=== PATIENT | female | born 1975 | race Hispanic/Latino ===

== ENCOUNTER 2017-03-10 12:35 | Inpatient (IN) | payer OTHER ==
[~2017-03-10] VITALS: Ht 172.7 cm; Wt 91.0 kg
[~2017-03-10 12:35] MED LIST: ABILIFY5 MG OR; AMOXICILLIN500 MG OR; AUGMENTIN875 MG OR; AUGMENTIN875TAB PO; AVAPRO75 MG OR; BACTRIM DS1 TAB PO; BUTRANS10 MCG/HR TD; CELEXA20 M1 OR; CHLOROQUINE; CIPRO500 MG OR; CIPROFLOXACN500 MG PO; CLARITIN10 MG OR; DARVOCET-N 100100 MG OR; FLEXERIL OR; FLEXERIL PO; GENERLAC OR; GLUCOMETER; GLUCOTROL5 MG OR; GLUCOVANCE5 MG/500 M OR; HYDROCHLOROT25 MG OR; IBUPROFEN600 MG PO; KEFLEX500 M1 PO; LANTUS SOLOSTAR SC; LANTUS100 MG/ML SC; LORTAB 10-325 M1 TAB PO; LORTAB 1010 MG PO; LORTAB 5 OR; LORTAB 7.5 OR; LOSARTAN POT50 MG PO; LYRICA150 M1 PO; LYRICA150 MG OR; LYRICA75 MG OR; METFORMIN500 M1 OR; METFORMIN500 MG OR; MUPIROCIN2 % EX; Metformin OR; NAPROSYN500 MG OR; NAPROSYN500 MG PO; NEURONTIN; NEURONTIN300 MG OR; NORVASC5 MG OR; NOVOLOG FLEXPEN SC; NOVOLOG100 IU/1 M SC; PERCOCET 5/325M1 TAB OR; PHENERGAN25 MG/TAB PO; PRILOSEC20 MG OR; PRILOSEC40 MG OR; PRINIVIL10 MG OR; PRINIVIL5 MG OR; PYRIDIUM200 MG OR; REGLAN10 MG OR; SEA-OMEGA500 MG OR; ULTRAM50 M1 PO; ULTRAM50 MG OR; ZESTRIL OR; [UNRECOGNIZED DRUG - SUPPLY]
[2017-03-10] MEDS ORDERED: LAMICTAL ODT100 MG PO (13:01)
[2017-03-10] MEDS ORDERED: GENTAMICIN SULF0.1 % EX (13:03)
--- NOTE | 2017-03-10 13:10 | NUR ---
PT TRIAGED, TO ROOM 10 VIA WC
--- NOTE | 2017-03-10 13:48 | NUR ---
PT RESTING ON STRETCHER. ULCER TO BOTTOM OF LEFT FOOT. DISCUSSED DIABETES W/PT. PT VOICED UNDERSTANDING AND VOICED UNDERSTANDING OF IMPORTANCE IN FOLLOWING A HEALTHY DIABETIC DIET WELL DAILY INSPECTIONS OF FEET. CALL LIGHT WITHINREACH.
--- NOTE | 2017-03-10 14:30 | NUR ---
EVALUATED PT. AWAITING FAX FROM [facility] TO REVIEW RECORDS.
--- NOTE | 2017-03-10 15:26 | NUR ---
IV ABT INFUSING TO RAC. MEDICATED FOR RT FOOT PAIN. [facility]
[2017-03-10 15:39] LABS: HEMATOCRIT 38.4 % (37.0-47.0); IMMATURE GRANULOCYTES 0.5 % (0.0-1.0); MEAN CELL VOLUME 84.8 fL CALC (80.0-100.0); MEAN CORPUSCULAR HGB 28.7 pG CALC (26.0-32.0); MEAN CORPUSCULAR HGB CONC 33.9 g/L CALC (32.0-36.0); NEUT# 8.59 thou/uL (2.00-7.15); RED BLOOD COUNT 4.53 mill/uL (4.20-5.60); RED CELL DISTRI WIDTH 12.6 % (11.5-15.5)
--- NOTE | 2017-03-10 16:49 | NUR ---
IV ABT CONTINUES. SITE HEALTHY. PT MEDICATED FOR C/O PAIN TO LEFT FOOT VIA IV W/MORPHINE. ADVISED OF PENDING POC ADMISSION. PT VOICED UNDERSTANDING. CALL LIGHTWITHINR EACH. AFEBRILE
--- NOTE | 2017-03-10 16:55 | NUR ---
ATTEMPT TO CALL REPORT TO [facility], NURSE UNAVAILABLE FOR REPORT
[2017-03-10 17:13] LABS: ALBUMIN 3.4 g/dL (3.2-5.0); ALKALINE PHOSPHATASE 139 u/l (38-126); ANION GAP 13 (6-22 (CALC)); BILIRUBIN, TOTAL 0.2 mg/dL (0.0-1.4); BUN 13 mg/dL (7-17); BUN/CREATININE RATIO 29 (12-20 (CALC)); CALCIUM 9.1 mg/dL (8.4-10.2); CARBON DIOXIDE 24 mmol/l (22-30); CHLORIDE 109 mmol/l (95-108); CREATININE 0.4 mg/dL (0.5-1.0); GFR > 60 ML/MIN (>=60 (CALC)); GFR FOR AFR.AMER. > 60 ML/MIN (>=60 (CALC)); GLUCOSE 162 mg/dL (65-105); POTASSIUM 3.7 mmol/l (3.5-5.1); SGOT/AST 24 u/l (14-36); SGPT/ALT 47 u/l (9-52); SODIUM 141 mmol/l (137-146); TOTAL PROTEIN 6.7 g/dL (6.3-8.2)
--- NOTE | 2017-03-10 17:16 | NUR ---
ATTEMPT TO CALL REPORT TO [facility], NURSE UNAVAILABLE FOR REPORT AT THIS TIME.
--- NOTE | 2017-03-10 17:23 | NUR ---
REPORT PROVIDED TO SURENDRA HALL, ON MEDSURG. PT TO MEDSURG VIA STRETCHER. IV ABT INFUSING SITE HEALTHY. VSS. AFEBRILE. NO C/O PAIN AT THIS TIME.
--- NOTE | 2017-03-10 17:37 | NUR ---
PT ARRIVED TO FLOOR VIA STRETCHER ACCOMPANIED BY ED STAFF X 1. PT ORIENTED TO ROOM AND EQUIPMENT. PLAN OF CARE DISCUSSED. REPORTING OF CONCERNS ENCOURAGED. PT REPORTS MODERATE PAIN TO LEFT FOOT WITH MOVEMENT. CALL LIGHT REVIEWED AND IN REACH. FALL PRECAUTIONS REIFORCED. PT STATES UNDERSTANDING.
[2017-03-10 17:48] VITALS: BP 139/80
[2017-03-10 19:05] VITALS: BP 117/77
--- NOTE | 2017-03-10 20:10 | NUR ---
REPORT RECEIVED FROM AMBER; PT.IS UPRIGHT IN BED WATCHING TV AND DENIES ANY NEEDS AT THIS TIME; CALL LIGHT W/IN REACH, PT.INSTRUCTED TO CALL NEEDS ARISE
--- NOTE | 2017-03-10 23:20 | NUR ---
STARTED HEARING SCREAMING DOWN THE CORTÉS FROM ANOTHER PT.ROOM; ONE OF THE SOLAR LAB TECHNICIAN'S AND I ENTERED PT.ROOM TO CHECK ON HER, UPON ENTERING ROOM, PT.WAS ON CELLPHONE, SCREAMING AND YELLING; PT. HUNG UP THE PHONE AND PROCEEDED TO START CLIMBING OUT OF BED STATING SHE "HAS TO GO, MY IS CHEATING ON ME." PT.WAS QUITE DISTRAUGHT; WE MANAGED TO TALK TO HER AND CALM HER SOMEWHAT, MAXIMINO KIMBLEA STAYED W/PT FOR AWHILE AND TALKED TO HER UNTIL SHE WAS CALM, WANTING TO STAY AND TAKE CARE OF HERSELF;
--- NOTE | 2017-03-11 00:10 | NUR ---
PT.IS IN BED PROPPED UP W/TV QUIETLY PLAYING, PT.APPEARS TO BE CALM, BUT STILL UPSET; PT.MEDICATED AND OFFERED ASSISTANCE NEEDE; CALL LIGHT W/IN REACH AND PT.ENCOURAGED TO CALL NEEDS ARISE
[2017-03-11 03:15] VITALS: BP 127/80
[2017-03-11 06:39] LABS: HEMATOCRIT 33.9 % (37.0-47.0); HEMOGLOBIN 11.4 g/dl (12.0-16.0); IMMATURE GRANULOCYTES 0.5 % (0.0-1.0); MEAN CELL VOLUME 84.8 fL CALC (80.0-100.0); MEAN CORPUSCULAR HGB 28.5 pG CALC (26.0-32.0); MEAN CORPUSCULAR HGB CONC 33.6 g/L CALC (32.0-36.0); NEUT# 5.91 thou/uL (2.00-7.15); RED CELL DISTRI WIDTH 12.3 % (11.5-15.5)
[2017-03-11 06:54] LABS: ANION GAP 12 (6-22 (CALC)); BUN 10 mg/dL (7-17); BUN/CREATININE RATIO 25 (12-20 (CALC)); CALCULATED LDLCHOLESTEROL 63 mg/dL (62-129 (CALC)); CARBON DIOXIDE 25 mmol/l (22-30); CHLORIDE 109 mmol/l (95-108); CREATININE 0.4 mg/dL (0.5-1.0); GFR > 60 ML/MIN (>=60 (CALC)); GFR FOR AFR.AMER. > 60 ML/MIN (>=60 (CALC)); GLUCOSE 65 mg/dL (65-105); HDL CHOLESTEROL 31 mg/dL (>=40); POTASSIUM 3.8 mmol/l (3.5-5.1); SODIUM 142 mmol/l (137-146); TOTAL CHOLESTEROL 114 mg/dl (0-199); TOTAL TRIGLYCERIDES 94 mg/dl (30-149); VLDL CHOLESTROL 19 mg/dl (1-41 (CALC))
--- NOTE | 2017-03-11 07:12 | NUR ---
BEDSIDE REPORT RECEIVED FROM SURENDRA TODD. PT SITTING UPRIGHT IN BED. DR. CHU IN TO SEE PT AT THIS TIME.
[2017-03-11 08:02] VITALS: BP 113/75
--- NOTE | 2017-03-11 11:54 | NUR ---
PT SITTING IN CHAIR AT BEDSIDE. NO COMPLAINTS AT THIS TIME. ANESTHESIA IN TO SEE PT NOW.
[2017-03-11 15:53] VITALS: BP 128/80
[2017-03-11 18:58] VITALS: BP 140/87
--- NOTE | 2017-03-11 19:43 | NUR ---
BEDSIDE REPORT RECEIVED FROM SURENDRA HALL. PT SITTING UP IN BED WATCHING TV. C/O PAIN TO LEFT FOOT. RESPIRATIONS EVEN AND UNLABORED. PLAN OF CARE DISCUSSED. PT ENCOURAGED TO VERBALIZE CONCERNS. STATES UNDERSTANDING. ASSESSMENT COMPLETE AND DILAUDID ADMINISTERED. SAFETY PRECAUTIONS IN PLACE. CALL LIGHT SYSTEM REVIEWED AND IN REACH.
[2017-03-12] VITALS (9 sets, daily range): BP systolic 113–157; BP diastolic 58–87
--- NOTE | 2017-03-12 | NUR ---
PT IS RESTING IN BED WATCHING TV. C/O PAIN TO LEFT FOOT AND ANAGESICS GIVEN INTERMITTENTLY. RESPIRATIONS EVEN AND UNLABORED. PREVIOUSLY THIS SHIFT PT FOUND CRYING. NURSE ENCOURAGED PT TO VERBALIZE HER CONCERNS, AND PT STATES, "I AM OK, JUST DEPRESSED." PT VERBALIZED TO FORMULA ROOM WORKER THAT SHE IS HAVING FAMILY PROBLEMS AT HOME. WILL CONTINUE TO MONITOR BEHAVIORS. SAFETY MEASURES IN PLACE. CALL LIGHT WITHIN REACH.
[2017-03-12 02:01] LABS: URINE BILIRUBIN - DIPSTICK NEGATIVE (NEGATIVE); URINE BLOOD DIPSTICK NEGATIVE (NEGATIVE); URINE CLARITY CLEAR; URINE COLOR YELLOW; URINE GLUCOSE - DIPSTICK >=1000 mg/dL (NEGATIVE); URINE KETONE NEGATIVE (NEGATIVE); URINE LEUK ESTERASE NEGATIVE (Negative); URINE NITRITE - DIPSTICK NEGATIVE (Negative); URINE PROTEIN - DIPSTICK NEGATIVE (NEG-TRACE); URINE SPECIFIC GRAVITY 1.015; URINE UROBILINOGEN - DIPSTICK 0.2 E.U./dL (0.2)
--- NOTE | 2017-03-12 04:10 | NUR ---
PT RESTING IN BED WITH EYES CLOSED. RECEIVED ANALGESIC WITH GOOD EFFECT. RESPIRATIONS EVEN AND UNLABORED. UP TO BATHROOM NEEDED, USING A CRUTCH WHEN AMBULATING. SAFETY MEASURES IN PLACE. CALL LIGHT WITHIN REACH.
[2017-03-12 05:31] LABS: HEMATOCRIT 35.5 % (37.0-47.0); HEMOGLOBIN 11.9 g/dl (12.0-16.0); IMMATURE GRANULOCYTES 0.4 % (0.0-1.0); MEAN CELL VOLUME 84.9 fL CALC (80.0-100.0); MEAN CORPUSCULAR HGB 28.5 pG CALC (26.0-32.0); MEAN CORPUSCULAR HGB CONC 33.5 g/L CALC (32.0-36.0); NEUT# 4.45 thou/uL (2.00-7.15); RED BLOOD COUNT 4.18 mill/uL (4.20-5.60); RED CELL DISTRI WIDTH 12.3 % (11.5-15.5)
[2017-03-12 05:43] LABS: ANION GAP 13 (6-22 (CALC)); BUN 7 mg/dL (7-17); BUN/CREATININE RATIO 17 (12-20 (CALC)); CALCIUM 8.9 mg/dL (8.4-10.2); CARBON DIOXIDE 27 mmol/l (22-30); CHLORIDE 105 mmol/l (95-108); CREATININE 0.4 mg/dL (0.5-1.0); GFR > 60 ML/MIN (>=60 (CALC)); GFR FOR AFR.AMER. > 60 ML/MIN (>=60 (CALC)); GLUCOSE 197 mg/dL (65-105); POTASSIUM 3.8 mmol/l (3.5-5.1); SODIUM 141 mmol/l (137-146)
[2017-03-12 05:48] LABS: INTERNATIONAL NORMALIZED RATIO 0.9 RATIO (0.7-1.3); PROTHROMBIN TIME 9.7 SECONDS (9.0-12.5)
--- NOTE | 2017-03-12 07:31 | NUR ---
REPORT RECEIVED FROM VANGIE MALDONADO. PLAN OF CARE DISCUSSED. PT REPORTS NPO SINCE [place]. REPORTS MILD LEFT FOOT PAIN. PT LEFT FLOOR VIA STRETCHER ACCOMPANEID BY RECREATION FACILITIES SUPERVISOR. PT STABLE AT THIS TIME.
--- NOTE | 2017-03-12 09:25 | NUR ---
PT RETURNED TO FLOOR VIA STRETCHER ACCOMPANIED BY OR STAFF X2. PT DENIES PAIN. DRESSING TO LEFT FOOT CDI. FOOT ELEVATED ON 3 PILLOWS PER ORDERS. NWB STATUS REVIEWED WITH PT. CALL LIGHT REVIEWED AND IN REACH. PT STATES UNDERSATNDING.
--- NOTE | 2017-03-12 12:24 | NUR ---
PT ASSISTED TO BSC. NWB STATUS MAINTAINED. PT TOLERATED ACITIVTY WELL.
--- NOTE | 2017-03-12 14:55 | NUR ---
PT REPORTS MILD PAIN TO LEFT FOOT AT THIS TIME. CALL LIGHT WITHIN REACH. REPORTING OF FURTHER CONCERNS ENCOURAGED. VANCO INFUSING THROUGH #20 RAC, NO S/S OF INFILTRATION. WILL CONTINUE TO MONITOR.
--- NOTE | 2017-03-12 18:24 | NUR ---
IVS RAC LEAKING. SITE REMOVED. ATTEMPTS X 2 FOR NEW IVS, UNSUCCESSFUL. WILL SEEK OTHER STAFF FOR NEW IVS.
--- NOTE | 2017-03-12 20:00 | NUR ---
REPORT RECEIVED FROM AMBER PT.UPRIGHT IN BED WATCHING TV; DENIES ANY NEEDS AT THIS TIME; CALL LIGHT W/IN REACH
--- NOTE | 2017-03-12 23:30 | NUR ---
PT.UP TO RESTROOM, PT.HOPS TO RESTROOM AND DOES NOT WANT ASSISTANCE; PT.HAVING PAIN AND TREATED W/MEDICATION ORDERS PROVIDE; PT.FOOT ELEVATED W/3 PILLOWS AND PENNY WRAP CDI; SCD ON R.LEG
[2017-03-13 03:53] VITALS: BP 124/54
--- NOTE | 2017-03-13 06:25 | NUR ---
PT.WAS MEDICATED W/MORPHINE AND NOW UPON REASSESSMENT REPORTS THAT PAIN IS STILL A 9/10; REPOSITIONED L.FOOT ON 3 PILLOWS
--- NOTE | 2017-03-13 07:30 | NUR ---
PT IN SEMI BATEMAN'S POSITION; LEFT FOOT DRSG CDI, FOOT ELEVATED ON 3 PILLOWS; PT MEDICATED FOR C/O LEFT FOOT PAIN 06/29; CALL BENOIT WITHIN REACH; WILL CONTINUE TO MONITOR.
--- NOTE | 2017-03-13 07:44 | NUR ---
Vancomycin single level analysis: Current dose being given: 1000 mg Current dosing interval: 8 hrs Current infusion time (hrs): 2 Single level Trough Data: Trough level obtained: 7 mcg/ml NEXT TROUGH WILL BE 03/14/2017 BEFORE 1500 DOSE Recommendations: Give Vancomycin 1250 mg q 8 hrs. Infuse over 2 hrs Thank you for the consult, will continue to follow. LYNETTE BOB -SUNSHINED
[2017-03-13 08:04] VITALS: BP 140/86
--- NOTE | 2017-03-13 10:00 | NUR ---
PT MEDICATED FOR C/O LEFT FOOT PAIN 07/30; FOOT ELEVATED ON 3 PILLOWS; CALL BENOIT WITHIN REACH; WILL CONTINUE TO MONITOR.
--- NOTE | 2017-03-13 12:00 | NUR ---
PT MEDICATED FOR C/O NECK PAIN 06/29; CALL BENOIT WITHIN REACH; WILL CONTINUE TO MONITOR.
[2017-03-13 15:48] VITALS: BP 146/82
--- NOTE | 2017-03-13 17:32 | NUR ---
PT MEDICATED FOR C/O LEFT LEG PAIN 07/30; CALL BENOIT WITHIN REACH; WILL CONTINUE TO MONITOR.
[2017-03-13 19:25] VITALS: BP 149/85
--- NOTE | 2017-03-13 20:30 | NUR ---
PT RESTING IN SEMI FOWLERS POSITION WITH SPOUSE AT BEDSIDE;PT COMPLAINS OF LEFT FOOT/ANKLE PAIN RATING 9/10 ON THE PAIN SCALE AND REQUESTS PRN PAIN MEDICATION;PT MEDICATED ACCORDINGLY PER MD ORDERS;IV SITE TO RAC FLUSHED AND PATENT;PT BS OF 319 OBTAINED BY GORDON ESTRADA;ASSESSMENT COMPLETED;LEFT FOOT/ANKLE ELEVATED ON 3 PILLOWS;DRESSING CDI;PT EDUCATED ON NPO STATUS AFTER MIDNIGHT AND VERBALIZES UNDERSTANDING;PT DENIES ANY OTHER NEEDS AT THIS TIME;SAFETY PRECAUTIONS REINFORCED;BED IN LOWEST POSITION WITH CALL LIGHT IN REACH;WILL CONTINUE TO MONITOR
--- NOTE | 2017-03-13 23:30 | NUR ---
PT RESTING IN SEMI FOWLERS POSITION;PT COMPLAINS OF LEFT FOOT/ANKLE PAIN RATING 9/10 ON THE PAIN SCALE AND REQUESTS PRN PAINMEDICATION;PT MEDICATED ACCORDINGLY PER MD ORDERS;PT DENIES ANY OTHER NEEDS AT THIS TIME;PT EDUCATED TO CALL FOR ASSISTANCE IF NEEDED;BED IN LOWEST POSITION WITH CALL LIGHT IN REACH;WILL CONTINUE TO MONITOR
[2017-03-14 03:40] VITALS: BP 123/74
--- NOTE | 2017-03-14 05:30 | NUR ---
PT RESTING IN SEMI FOWLERS POSITION;PT COMPLAINS OF LEFT FOOT/ANKLE PAIN RATING 9/10 ON THE PAIN SCALE AND REQUESTS PRN PAIN MEDICATION;PT MEDICATED ACCORDINGLY PER MD ORDERS;IV FLUIDS INFUSING WELL AT THIS TIME;PT DENIES ANY OTHER NEEDS;BED IN LOWEST POSITION WITH CALL LIGHT IN REACH;WILL CONTINUE TO MONITOR
[2017-03-14 06:15] LABS: HEMATOCRIT 34.9 % (37.0-47.0); HEMOGLOBIN 11.6 g/dl (12.0-16.0); IMMATURE GRANULOCYTES 1.1 % (0.0-1.0); MEAN CELL VOLUME 85.1 fL CALC (80.0-100.0); MEAN CORPUSCULAR HGB 28.3 pG CALC (26.0-32.0); MEAN CORPUSCULAR HGB CONC 33.2 g/L CALC (32.0-36.0); NEUT# 3.88 thou/uL (2.00-7.15); RED BLOOD COUNT 4.1 mill/uL (4.20-5.60)
[2017-03-14 06:34] LABS: ANION GAP 13 (6-22 (CALC)); BUN 7 mg/dL (7-17); BUN/CREATININE RATIO 16 (12-20 (CALC)); CALCIUM 9.3 mg/dL (8.4-10.2); CARBON DIOXIDE 26 mmol/l (22-30); CHLORIDE 105 mmol/l (95-108); CREATININE 0.5 mg/dL (0.5-1.0); GFR > 60 ML/MIN (>=60 (CALC)); GFR FOR AFR.AMER. > 60 ML/MIN (>=60 (CALC)); GLUCOSE 258 mg/dL (65-105); POTASSIUM 4.6 mmol/l (3.5-5.1); SODIUM 139 mmol/l (137-146)
--- NOTE | 2017-03-14 08:14 | NUR ---
REPORT RECEIVED FROM AMBER; PT.SLEEPING AT THIS TIME; BST AND CALL LIGHT W/IN REACH
--- NOTE | 2017-03-14 09:55 | NUR ---
OR CAME TO GET PT.FOR FOR POSSIBLE I&D OF LEFT FOOT, PT.OFF THE FLOOR
--- NOTE | 2017-03-14 15:45 | NUR ---
PT.BACK TO FLOOR, AWAKE, NO C/O PAIN AT THIS TIME; PT.IS THIRSTY AND HUNGRY, I INSTRUCTED PT.TO START W/ICE-CHIPS AND WE WILL PROGRESS FROM THERE TOLERATED; COMMUNITY SERVICE OFFICER REPORTED A FEW MINUTES LATER THAT PT.WAS EATING CRACKERS FROM HOME AND WANTED MILK TO GO W/THEM, PT. REPORTS NO NAUSEA AND APPEARS TO BE TOLERATING CRACKERS WELL.
[2017-03-14 17:00] VITALS: BP 154/82
--- NOTE | 2017-03-14 20:15 | NUR ---
PT IN BED WITH LEFT LEG ELEVATED ON TWO PILLOWS, PENNY BANDAGE IN PLACE TO LOWER LEG CDI. VANCOMYCIN STARTED AT 2009, DUE TO DIFFICULTY DRAWING VANCO TROUGH, INFUSING WITH NO COMPLICATIONS. WILL CALL PHARMACY. A/O X3, TEARY DUE TO IN THE FAMILY. WILL CONTINUE TO MONITOR. CALL LIGHT IN REACH.
[2017-03-14 20:20] VITALS: BP 137/81
[2017-03-15 00:25] VITALS: BP 143/84
--- NOTE | 2017-03-15 02:38 | NUR ---
MEDICATED WITH PERCOCET FOR C/O LEFT FOOT PAIN 08/29.
--- NOTE | 2017-03-15 04:41 | NUR ---
MEDICATED WITH MORPHINE IV FOR C/O LEFT LOWER LEG PAIN. VANCOMYCIN SPIKED AND INFUSING WITH NO COMPLICATIONS.
[2017-03-15 04:45] VITALS: BP 133/80
--- NOTE | 2017-03-15 07:35 | NUR ---
BEDSIDE REPORT RECEIVED FROM VANGIE ROWLEY. PT SITTING UPRIGHT IN BED. REPORTS SEVERE LEFT FOOT PAIN. PERCOCET PO ADMINISTERED. REPORTING OF FURTHER CONCERNS ENCOURAGED. PT TEARFUL. STATES SHE WOULD LIKE TO GO HOME TO PREPARE FOR HER BROTHERS AND RETURN AFTER. PT ENCOURAGED TO DISCUSSED WITH DR. FRENCH. CALL LIGHT WITHIN REACH.
--- NOTE | 2017-03-15 08:47 | NUR ---
Vancomycin dose: 1250 mg IV Q8hrs OVER 2HRS VANCO TROUGH WAS 5 BUT WAS PULLED 4 HRS LATE WE WILL CONTINUE VANCO 1250MG Q8H NEXT TROUGH IS 03/16/17 AT 1145
[2017-03-15 09:00] VITALS: BP 156/90
--- NOTE | 2017-03-15 12:00 | NUR ---
PT REPORTS SEVERE LEFT FOOT PAIN. PERCOCET PO ADMINISTERED. WILL MONITOR FOR EFFECTIVENESS.
[2017-03-15 17:00] VITALS: BP 157/83
--- NOTE | 2017-03-15 17:18 | NUR ---
PT REPORTS SOME RELIEF FROM RECENT PAIN MEDICATION. PLAN OF CARE FOR TOMORROW DISCUSSED AND NPO AFTER MN STATUS. PT STATES UNDERSTANDING.
--- NOTE | 2017-03-15 19:55 | NUR ---
MEDICATED WITH MORPHINE 2MG IV FOR C/O LEFT FOOT PAIN 06/29. A/O X3, RESPIRATIONS EVEN AND UNLABORED. DRESSING IN PLACE TO LEFT FOOT SECURED WITH PENNY BANDAGE, LEFT LEG ELEVATED ON 2 PILLOWS. VANCOMYCIN SPIKED AND INFUSING WITH NO COMPLICATIONS TO LAC. ENCOURAGED TO USE CALL LIGHT FOR ASSISTANCE, WILL CONTINUE TO MONITOR.
[2017-03-15 20:10] VITALS: BP 151/90
--- NOTE | 2017-03-15 21:11 | NUR ---
ACCUCHECK 210 NO INSULIN COVERAGE FOR HS, MEDICATED WITH LEVEMIR 90 UNITS SQ, TOLERATED WELL. PERCOCET PROVIDED AT THIS TIME FOR C/O PAIN 08/29. PT IS TEARY EYED DUE TO RECENT IN THE FAMILY. CALL LIGHT IN REACH, WILL CONTINUE TO MONITOR.
--- NOTE | 2017-03-16 00:10 | NUR ---
PT IS NPO, ALL FLUID AND FOOD REMOVED FROM BED SIDE.
--- NOTE | 2017-03-16 03:30 | NUR ---
C/O PAIN 8/10 TO LEFT FOOT, MEDICATED WITH MORPHINE 2MG IV.
[2017-03-16 03:34] VITALS: BP 141/85
--- NOTE | 2017-03-16 07:00 | NUR ---
BEDSIDE REPORT RECEVIED FROM VANGIE ROWLEY. OR STAFF HERE TO TAKE PT TO OR. PT STATES UNDERSTANDING OF PLAN OF CARE AND PROCEDURE.
--- NOTE | 2017-03-16 09:44 | NUR ---
PT ARRIVED TO FLOOR ACCOMPANIED BY SURENDRA VASQUES. PT REPORTS MODERATE LEFT FOOT PAIN. PENNY WRAP DRESSING TO LEFT FOOT CDI. PT AWAKE AND ALERT. LEFT FOOT ELEVATED ON 3 PILLOWS PER ORDER. SCD TO RIGHT LE. WILL CONTINUE TO MONITOR.
[2017-03-16 09:45] VITALS: BP 146/67
[2017-03-16 10:10] VITALS: BP 137/76
--- NOTE | 2017-03-16 12:00 | NUR ---
PT ARRIVED TO FLOOR WITH ALEJANDRA PICC LINE IN PLACE. FLUSHES WELL. DRESSING CDI.
[2017-03-16] MEDS ORDERED: LEVEMIR100 UNIT/M SC ×2 (12:49)
[2017-03-16] MEDS ORDERED: LORTAB 10-325 M1 TAB PO (12:49)
[2017-03-16] MEDS ORDERED: NOVOLOG100 UNIT/M SC (12:49)
[2017-03-16] MEDS ORDERED: NICOTINE T21 MG/PATC TD (13:12)
--- NOTE | 2017-03-16 14:51 | NUR ---
Discharge instructions given. Patient verbalizes understanding of same. Discharged in stable condition via Wheelchair to Home with family. All belongings sent with pt.
== END 2017-03-16 14:48 | disposition home or self-care (01) | DRG 638 ==
LOC: ENPENDDIS → ED 12:35 → ED-I 16:01 → ED 16:22 → MS2 16:23
PROVIDERS: Emergency Medicine; ADMIT Internal Medicine; ATTEND Internal Medicine
PROC: 0H9NXZX Drainage of Left Foot Skin, External Approach, Diagnostic (ICD-10-PCS; principal; 2017-03-12)
PROC: 0HQNXZZ Repair Left Foot Skin, External Approach (ICD-10-PCS; 2017-03-14)
PROC: 0H9NXZZ Drainage of Left Foot Skin, External Approach (ICD-10-PCS; 2017-03-16)
DX: E11.628 Type 2 diabetes mellitus with other skin complications (principal); M86.9 Osteomyelitis, unspecified; E11.42 Type 2 diabetes mellitus with diabetic polyneuropathy; E11.621 Type 2 diabetes mellitus with foot ulcer; L02.612 Cutaneous abscess of left foot; E11.69 Type 2 diabetes mellitus with other specified complication; E11.65 Type 2 diabetes mellitus with hyperglycemia; L97.529 Non-pressure chronic ulcer of other part of left foot with unspecified severity; B95.7 Other staphylococcus as the cause of diseases classified elsewhere; F31.9 Bipolar disorder, unspecified; I10 Essential (primary) hypertension; S92.515A Nondisplaced fracture of proximal phalanx of left lesser toe(s), initial encounter for closed fracture; F17.210 Nicotine dependence, cigarettes, uncomplicated; Z79.4 Long term (current) use of insulin; X58.XXXA Exposure to other specified factors, initial encounter
CPT/HCPCS: A9579; J1650; J3370

== ENCOUNTER 2017-04-30 09:23 | Emergency (ER) | payer OTHER ==
[~2017-04-30] VITALS: Ht 172.7 cm; Wt 85.0 kg
[~2017-04-30 09:23] MED LIST changes: +GENTAMICIN SULF0.1 % EX; +LAMICTAL ODT100 MG PO; +LEVEMIR100 UNIT/M SC; +NICOTINE T21 MG/PATC TD; +NOVOLOG100 UNIT/M SC
[2017-04-30 10:39] VITALS: BP 142/74
== END 2017-04-30 10:39 | disposition home or self-care (01) | DRG 951 ==
LOC: ED 09:23
DX: Z48.01 Encounter for change or removal of surgical wound dressing (principal); E11.40 Type 2 diabetes mellitus with diabetic neuropathy, unspecified; E11.621 Type 2 diabetes mellitus with foot ulcer; L97.529 Non-pressure chronic ulcer of other part of left foot with unspecified severity; I10 Essential (primary) hypertension; F31.9 Bipolar disorder, unspecified; F17.210 Nicotine dependence, cigarettes, uncomplicated

== ENCOUNTER 2017-06-27 08:54 | Inpatient (IN) | payer OTHER ==
[~2017-06-27] VITALS: Ht 172.7 cm; Wt 81.2 kg
[2017-06-27 09:35] LABS: HEMATOCRIT 39.2 % (37.0-47.0); HEMOGLOBIN 13.4 g/dl (12.0-16.0); IMMATURE GRANULOCYTES 0.8 % (0.0-1.0); MEAN CELL VOLUME 81.8 fL CALC (80.0-100.0); MEAN CORPUSCULAR HGB CONC 34.2 g/L CALC (32.0-36.0); NEUT# 6.8 thou/uL (2.00-7.15); RED BLOOD COUNT 4.79 mill/uL (4.20-5.60); RED CELL DISTRI WIDTH 13.5 % (11.5-15.5)
[2017-06-27 09:58] LABS: ALBUMIN 4.3 g/dL (3.2-5.0); ALKALINE PHOSPHATASE 178 u/l (38-126); ANION GAP 16 (6-22 (CALC)); BILIRUBIN, TOTAL 0.9 mg/dL (0.0-1.4); BUN 9 mg/dL (7-17); BUN/CREATININE RATIO 17 (12-20 (CALC)); CALCIUM 9.4 mg/dL (8.4-10.2); CARBON DIOXIDE 25 mmol/l (22-30); CHLORIDE 103 mmol/l (95-108); CREATININE 0.5 mg/dL (0.5-1.0); GFR > 60 ML/MIN (>=60 (CALC)); GFR FOR AFR.AMER. > 60 ML/MIN (>=60 (CALC)); GLUCOSE 393 mg/dL (65-105); POTASSIUM 4.2 mmol/l (3.5-5.1); SGOT/AST 20 u/l (14-36); SGPT/ALT 30 u/l (9-52); SODIUM 140 mmol/l (137-146); TOTAL PROTEIN 8.4 g/dL (6.3-8.2)
[2017-06-27 11:29] VITALS: BP 148/97
[2017-06-27 15:19] VITALS: BP 125/73
[2017-06-27 19:35] VITALS: BP 119/79
[2017-06-28 04:00] VITALS: BP 119/70
[2017-06-28 05:58] LABS: HEMATOCRIT 35.2 % (37.0-47.0); HEMOGLOBIN 11.7 g/dl (12.0-16.0); IMMATURE GRANULOCYTES 0.8 % (0.0-1.0); MEAN CELL VOLUME 83.6 fL CALC (80.0-100.0); MEAN CORPUSCULAR HGB 27.8 pG CALC (26.0-32.0); MEAN CORPUSCULAR HGB CONC 33.2 g/L CALC (32.0-36.0); NEUT# 5.06 thou/uL (2.00-7.15); RED BLOOD COUNT 4.21 mill/uL (4.20-5.60); RED CELL DISTRI WIDTH 13.6 % (11.5-15.5)
[2017-06-28 06:07] LABS: ANION GAP 12 (6-22 (CALC)); BUN 10 mg/dL (7-17); BUN/CREATININE RATIO 20 (12-20 (CALC)); CALCIUM 8.8 mg/dL (8.4-10.2); CARBON DIOXIDE 27 mmol/l (22-30); CHLORIDE 104 mmol/l (95-108); CREATININE 0.5 mg/dL (0.5-1.0); GFR > 60 ML/MIN (>=60 (CALC)); GFR FOR AFR.AMER. > 60 ML/MIN (>=60 (CALC)); GLUCOSE 286 mg/dL (65-105); POTASSIUM 4.1 mmol/l (3.5-5.1); SODIUM 140 mmol/l (137-146)
[2017-06-28 10:24] VITALS: BP 122/68
[2017-06-28 15:20] VITALS: BP 134/85
[2017-06-28 20:00] VITALS: BP 106/70
[2017-06-29] VITALS (9 sets, daily range): BP systolic 119–139; BP diastolic 52–87
[2017-06-29 03:57] LABS: HEMOGLOBIN 11.7 g/dl (12.0-16.0); MEAN CELL VOLUME 83.7 fL CALC (80.0-100.0); MEAN CORPUSCULAR HGB CONC 33.4 g/L CALC (32.0-36.0); NEUT# 4.92 thou/uL (2.00-7.15); RED BLOOD COUNT 4.18 mill/uL (4.20-5.60); RED CELL DISTRI WIDTH 13.4 % (11.5-15.5)
[2017-06-29 04:15] LABS: URINE BILIRUBIN - DIPSTICK NEGATIVE (NEGATIVE); URINE BLOOD DIPSTICK NEGATIVE (NEGATIVE); URINE CLARITY CLEAR; URINE COLOR YELLOW; URINE GLUCOSE - DIPSTICK >=1000 mg/dL (NEGATIVE); URINE KETONE NEGATIVE (NEGATIVE); URINE LEUK ESTERASE NEGATIVE (NEGATIVE); URINE NITRITE - DIPSTICK NEGATIVE (Negative); URINE PROTEIN - DIPSTICK NEGATIVE (NEG-TRACE); URINE UROBILINOGEN - DIPSTICK 0.2 E.U./dL (0.2)
[2017-06-29 04:16] LABS: ANION GAP 12 (6-22 (CALC)); BUN 10 mg/dL (7-17); BUN/CREATININE RATIO 19 (12-20 (CALC)); CALCIUM 8.6 mg/dL (8.4-10.2); CARBON DIOXIDE 26 mmol/l (22-30); CHLORIDE 107 mmol/l (95-108); CREATININE 0.5 mg/dL (0.5-1.0); GFR > 60 ML/MIN (>=60 (CALC)); GFR FOR AFR.AMER. > 60 ML/MIN (>=60 (CALC)); GLUCOSE 258 mg/dL (65-105); POTASSIUM 4.2 mmol/l (3.5-5.1); SODIUM 141 mmol/l (137-146)
[2017-06-29 04:17] LABS: BARBITURATES NEGATIVE (NEGATIVE); COCAINE NEGATIVE (NEGATIVE); METHADONE NEGATIVE (NEGATIVE); TETRAHYDROCANNABIONOL NEGATIVE (NEGATIVE); TRICYLIC ANTIDEPRESSANTS NEGATIVE (NEGATIVE)
[2017-06-29 04:18] LABS: OXCYCODONE POSITIVE (NEGATIVE)
[2017-06-30 04:12] VITALS: BP 115/72
[2017-06-30 05:57] LABS: HEMATOCRIT 33.4 % (37.0-47.0); HEMOGLOBIN 11.1 g/dl (12.0-16.0); IMMATURE GRANULOCYTES 0.7 % (0.0-1.0); MEAN CELL VOLUME 83.5 fL CALC (80.0-100.0); MEAN CORPUSCULAR HGB 27.8 pG CALC (26.0-32.0); MEAN CORPUSCULAR HGB CONC 33.2 g/L CALC (32.0-36.0); NEUT# 5.16 thou/uL (2.00-7.15); RED CELL DISTRI WIDTH 13.3 % (11.5-15.5)
[2017-06-30 06:07] LABS: ANION GAP 11 (6-22 (CALC)); BUN 5 mg/dL (7-17); BUN/CREATININE RATIO 11 (12-20 (CALC)); CALCIUM 8.9 mg/dL (8.4-10.2); CARBON DIOXIDE 30 mmol/l (22-30); CHLORIDE 104 mmol/l (95-108); CREATININE 0.4 mg/dL (0.5-1.0); GFR > 60 ML/MIN (>=60 (CALC)); GFR FOR AFR.AMER. > 60 ML/MIN (>=60 (CALC)); GLUCOSE 115 mg/dL (65-105); POTASSIUM 3.9 mmol/l (3.5-5.1); SODIUM 142 mmol/l (137-146)
[2017-06-30 08:35] VITALS: BP 111/75
[2017-06-30 15:17] VITALS: BP 135/73
[2017-06-30 19:26] VITALS: BP 147/83
[2017-07-01 04:04] VITALS: BP 111/59
[2017-07-01 08:08] VITALS: BP 135/91
[2017-07-01] MEDS ORDERED: LEXAPRO10 MG PO (11:18)
[2017-07-01] MEDS ORDERED: LEVEMIR100 UNIT/M SC ×2 (11:20)
[2017-07-01] MEDS ORDERED: NOVOLOG100 UNIT/M SC (11:20)
[2017-07-01] MEDS ORDERED: CUBICIN500 MG IV (11:24)
[2017-07-01] MEDS ORDERED: PERCOCET 10/31 COMBO PO (11:24)
[2017-07-01] MEDS ORDERED: TRAMADOL HCL50 MG PO (11:24)
== END 2017-07-01 14:05 | disposition home health service (06) | DRG 638 ==
LOC: ED 08:54 → ED-I 10:07 → ED 10:36 → MS2 10:37
PROVIDERS: Emergency Medicine; Internal Medicine; Nurse Anesthetist, Certified Registered; Nurse Practitioner Family; ADMIT Internal Medicine; ATTEND Internal Medicine
PROC: 0H9MXZX Drainage of Right Foot Skin, External Approach, Diagnostic (ICD-10-PCS; principal; 2017-06-27)
PROC: 02HV33Z Insertion of Infusion Device into Superior Vena Cava, Percutaneous Approach (ICD-10-PCS; 2017-06-28)
PROC: B518ZZA Fluoroscopy of Superior Vena Cava, Guidance (ICD-10-PCS; 2017-06-28)
PROC: 0H9MXZZ Drainage of Right Foot Skin, External Approach (ICD-10-PCS; 2017-06-29)
DX: E11.628 Type 2 diabetes mellitus with other skin complications (principal); L03.115 Cellulitis of right lower limb; B95.8 Unspecified staphylococcus as the cause of diseases classified elsewhere; E11.40 Type 2 diabetes mellitus with diabetic neuropathy, unspecified; L02.611 Cutaneous abscess of right foot; E11.65 Type 2 diabetes mellitus with hyperglycemia; I10 Essential (primary) hypertension; F31.9 Bipolar disorder, unspecified; E78.5 Hyperlipidemia, unspecified; G89.4 Chronic pain syndrome; F17.210 Nicotine dependence, cigarettes, uncomplicated; F15.10 Other stimulant abuse, uncomplicated; F14.10 Cocaine abuse, uncomplicated; F43.21 Adjustment disorder with depressed mood; L85.9 Epidermal thickening, unspecified; Z79.4 Long term (current) use of insulin; Z91.14 Patient's other noncompliance with medication regimen; Z63.4 Disappearance and death of family member; Z16.29 Resistance to other single specified antibiotic
CPT/HCPCS: J0878; J3370

== ENCOUNTER 2017-08-09 11:55 | Inpatient (IN) | payer OTHER ==
[2017-08-09] VITALS (8 sets, daily range): BP systolic 104–135; BP diastolic 55–76
[~2017-08-09] VITALS: Ht 172.7 cm; Wt 80.0 kg
[~2017-08-09 11:55] MED LIST changes: +CUBICIN500 MG IV; +LEXAPRO10 MG PO; +PERCOCET 10/31 COMBO PO; +TRAMADOL HCL50 MG PO
--- NOTE | 2017-08-09 12:02 | NUR ---
PT TO ROOM FOR TREATMENT VIA EMS
[2017-08-09 12:45] LABS: HEMATOCRIT 37.4 % (37.0-47.0); HEMOGLOBIN 12.7 g/dl (12.0-16.0); IMMATURE GRANULOCYTES 0.7 % (0.0-1.0); MEAN CELL VOLUME 82.2 fL CALC (80.0-100.0); MEAN CORPUSCULAR HGB 27.9 pG CALC (26.0-32.0); NEUT# 12.07 thou/uL (2.00-7.15); RED BLOOD COUNT 4.55 mill/uL (4.20-5.60); RED CELL DISTRI WIDTH 13.4 % (11.5-15.5)
[2017-08-09 12:54] LABS: INTERNATIONAL NORMALIZED RATIO 0.9 RATIO (0.7-1.3); PROTHROMBIN TIME 9.8 SECONDS (9.0-12.5)
[2017-08-09 12:58] LABS: ALBUMIN 3.5 g/dL (3.2-5.0); ALKALINE PHOSPHATASE 183 u/l (38-126); ANION GAP 18 (6-22 (CALC)); BILIRUBIN, TOTAL 0.5 mg/dL (0.0-1.4); BUN 4 mg/dL (7-17); BUN/CREATININE RATIO 9 (12-20 (CALC)); CARBON DIOXIDE 22 mmol/l (22-30); CHLORIDE 98 mmol/l (95-108); CREATININE 0.4 mg/dL (0.5-1.0); GFR > 60 ML/MIN (>=60 (CALC)); GFR FOR AFR.AMER. > 60 ML/MIN (>=60 (CALC)); POTASSIUM 4.1 mmol/l (3.5-5.1); SGOT/AST 19 u/l (14-36); SGPT/ALT 29 u/l (9-52); SODIUM 134 mmol/l (137-146); TOTAL PROTEIN 7.2 g/dL (6.3-8.2)
--- NOTE | 2017-08-09 13:04 | NUR ---
PT AWARE OF NPO STATUS, HAS RECEIVED PAIN MED, NAUSEA MED, ABX.
[2017-08-09 13:06] LABS: C-REACTIVE PROTEIN > 9.0 mg/dL (0-0.9); GLUCOSE 593 mg/dL (65-105)
[2017-08-09 13:07] LABS: URINE BILIRUBIN - DIPSTICK NEGATIVE (NEGATIVE); URINE BLOOD DIPSTICK NEGATIVE (NEGATIVE); URINE CLARITY CLEAR; URINE COLOR YELLOW; URINE GLUCOSE - DIPSTICK >=1000 mg/dL (NEGATIVE); URINE KETONE NEGATIVE (NEGATIVE); URINE LEUK ESTERASE NEGATIVE (NEGATIVE); URINE NITRITE - DIPSTICK NEGATIVE (Negative); URINE PROTEIN - DIPSTICK NEGATIVE (NEG-TRACE); URINE SPECIFIC GRAVITY <=1.005; URINE UROBILINOGEN - DIPSTICK 0.2 E.U./dL (0.2)
[2017-08-09 13:14] LABS: BARBITURATES NEGATIVE (NEGATIVE); COCAINE NEGATIVE (NEGATIVE); METHADONE NEGATIVE (NEGATIVE); TETRAHYDROCANNABIONOL NEGATIVE (NEGATIVE); TRICYLIC ANTIDEPRESSANTS NEGATIVE (NEGATIVE)
[2017-08-09 13:15] LABS: OXCYCODONE POSITIVE (NEGATIVE)
--- NOTE | 2017-08-09 13:24 | NUR ---
OR TEAM HERE FOR TRANSPORT TO OR.
--- NOTE | 2017-08-09 13:53 | NUR ---
PT PROVIDED 10 UNITS NOVOLOG INSULIN PRIOR TO DEPARTURE FROM ER. PT LEAVES IN STABLE CONDITION.
--- NOTE | 2017-08-09 16:15 | NUR ---
rug Selected: Vancomycin Age: 41 years Weight: 80 kg Height: 68 in Gender: Female SCR: 0.4 mg/dl Calculated Values: Dosing weight: 70.34 kg IBW: 63.90 kg CRCL (ml/min): 190.5 Pasha (hr-1): 0.163 Half-life (hrs): 4.25 Vd (liters): 56.00 (factor: 0.7 L/kg) Final Report: Give Vancomycin 1000 mg q8 hrs NEXT TROUGH WILL BE 08/10/17 AT 1400
--- NOTE | 2017-08-09 16:30 | NUR ---
FROM OR VIA STRETCHER ACCOMPANIED BY JOSH AGOSTO. RIGHT FOOT DRESSING CDI, ELEVATED ON 2 PILLOWS. ICE PACK APPLIED TO RIGHT ANKLE. SCD TO LEFT LOWER EXTREMITY. RESPS EVEN AND UNLABORED ON ROOM AIR. #22 LFA INFUSING WITHOUT DIFFICULTY, SITE APPEARS HEALTHY. ORIENTED TO ROOM AND CALL SYSTEM. SAFETY PRECAUTIONS REINFORCED. BED IN LOWEST POSITION WITH WHEELS LOCKED. CALL LIGHT WITHIN REACH. WILL CONTINUE TO MONITOR.
--- NOTE | 2017-08-09 17:00 | NUR ---
MEDICATED WITH MORPHINE 2MG IVP FOR C/O 10/10 RIGHT FOOT PAIN.
--- NOTE | 2017-08-09 21:30 | NUR ---
PT RESTING AT BEDSIDE;PT VOIDED 1000ML OF CLEAR/YELLOW URINE INTO BEDSIDE COMMODE;PT COMPLAINS OF RIGHT FOOT PAIN RATING 10/10 ON THE PAIN SCALE;PT MEDICATED WITH PRN PERCOCET 2 COMBO;ASSESSMENT COMPLETED;#22G TO RIGHT HAND FLUSHED AND PATENT,#22G TO RIGHT FOREARM INFUSING NS @ 100ML/HR WELL;I.S. AT BEDSIDE AND PT EDUCATED ON USING IT 10X PER/HR AND VERBALIZES UNDERSTANDING;RIGHT FOOT ELEVATED ON X2 PILLOWS PER MD;DRESSING CDI;SCD TO LEFT FOOT;PT DENIES ANY OTHER NEEDS AT THIS TIME;SAFETY PRECAUTIONS REINFORCED;PT EDUCATED TO CALL FOR ASSISTANCE IF NEEDED;BED IN LOWEST POSITION WITH CALL LIGHT IN REACH;WILL CONTINUE TO MONITOR
--- NOTE | 2017-08-10 00:50 | NUR ---
PT APPEARS TO BE SLEEPING IN HIGH FOWLERS POSITION WITH EYES CLOSED;NO S/S OF DISTRESS NOTED;RESPIRATIONS EVEN AND UNLABORED ON RA;IV FLUIDS INFUSING WELL TO RIGHT FOREARM;RIGHT FOOT ELEVATED ON X2 PILLOWS WITH DRESSING CDI;SCD NOTED ON LEFT FOOT;FALL PRECAUTIONS IN PLACE;CALL LIGHT IN REACH;WILL CONTINUE TO MONITOR
[2017-08-10 04:13] VITALS: BP 92/62
--- NOTE | 2017-08-10 04:30 | NUR ---
PT COMPLAINS OF RIGHT FOOT PAIN RATING 10/10 ON THE PAIN SCALE AND REQUESTS PRN PAIN MEDICATION;PT MEDICATED WITH PRN PERCOCET 2 COMBO AT THIS TIME;IV FLUIDS INFUSING WELL AT 100ML/HR;INITIAL TELE READING OBTAINED @ 0419 READING SR 89;RIGHT FOOT ELEVATED ON X2 PILLOWS;I.S. AT BEDSIDE;PT DENIES ANY OTHER NEEDS AT THIS TIME;CALL LIGHT WITHIN REACH;WILL CONTINUE TO MONITOR
[2017-08-10 05:26] LABS: HEMATOCRIT 33.8 % (37.0-47.0); HEMOGLOBIN 11.2 g/dl (12.0-16.0); IMMATURE GRANULOCYTES 0.7 % (0.0-1.0); MEAN CELL VOLUME 84.5 fL CALC (80.0-100.0); MEAN CORPUSCULAR HGB CONC 33.1 g/L CALC (32.0-36.0); NEUT# 11.49 thou/uL (2.00-7.15); RED CELL DISTRI WIDTH 13.3 % (11.5-15.5)
[2017-08-10 05:39] LABS: ANION GAP 14 (6-22 (CALC)); BUN 5 mg/dL (7-17); BUN/CREATININE RATIO 6 (12-20 (CALC)); CALCIUM 8.2 mg/dL (8.4-10.2); CARBON DIOXIDE 25 mmol/l (22-30); CHLORIDE 105 mmol/l (95-108); CREATININE 0.9 mg/dL (0.5-1.0); GFR > 60 ML/MIN (>=60 (CALC)); GFR FOR AFR.AMER. > 60 ML/MIN (>=60 (CALC)); GLUCOSE 151 mg/dL (65-105); POTASSIUM 3.9 mmol/l (3.5-5.1); SODIUM 139 mmol/l (137-146)
--- NOTE | 2017-08-10 07:00 | NUR ---
RECEIVED BEDSIDE REPORT FROM PETAR VENCES. RESTING IN BED WITH EYES CLOSED, AWAKENS EASILY. RESPS EVEN AND UNLABORED ON ROOM AIR, TELE MONITOR IN PLACE. RIGHT FOOT ELEVATED ON 2 PILLOWS, DRESSING CDI, ICE PACK TO RIGHT ANKLE. SCD TO LEFT LOWER EXTREMITY. #22 RFA INFUSING WITHOUT DIFFICULTY, SITE APPEARS HEALTHY. REPORTS PAIN CONSTANT. WILL MEDICATE DIRECTED. PLAN OF CARE DISCUSSED. SAFETY PRECAUTIONS REINFORCED. BED IN LOWEST POSITION WITH WHEELS LOCKED. CALL LIGHT WITHIN REACH. ENCOURAGED PT TO CALL FOR ANY NEEDS.
[2017-08-10 08:17] VITALS: BP 99/59
--- NOTE | 2017-08-10 09:25 | NUR ---
RESTING IN SEMI FOWLERS WITH EYES CLOSED, AWAKENS EASILY. RESPS EVEN AND UNLABORED ON ROOM AIR, TELE MONITOR IN PLACE. RIGHT FOOT ELEVATED ON 2 PILLOWS, DRESSING CDI, ICE PACK TO RIGHT ANKLE. MEDICATED WITH PERCOCET PO FOR C/O 10/10 RIGHT ANKLE PAIN. #22 RFA INFUSING WITHOUT DIFFICULTY, SITE APPEARS HEALTHY. CALL LIGHT WITHIN REACH. WILL CONTINUE TO MONITOR.
--- NOTE | 2017-08-10 10:00 | NUR ---
PHYSICAL THERAPY IN WITH PT.
--- NOTE | 2017-08-10 11:25 | NUR ---
DR FRENCH IN WITH PT, NEW ORDERS RECEIVED.
--- NOTE | 2017-08-10 13:00 | NUR ---
DR GARCIA IN WITH PT, AWAITING NEW ORDERS.
[2017-08-10 16:00] VITALS: BP 100/62
--- NOTE | 2017-08-10 16:21 | NUR ---
S: JULIOCURRANCELINE is a 41 F who presents with right foot cellulitis with R/O osteomyelitis. She has a history of IDDM, HTN, neuropathy, depression, and bipolar disorder. All medications in patient's chart were reviewed. O: VS: BP 99/59, P 95, RR 18, T 97.1 W 80 kg, HT 68 inches, Scr 0.9, CrCl 125 ml/min Vanco trough = 9 mcg/mL @ 1400. A: Blood culture is pending. Wound culture shows abundant gram positive cocci. Urine sample was not collected for culture. P: Patient is on Zosyn 4.5 gm IV q6h and vancomycin 1 gm IV q8h. Vancomycin ordered for pharmacy to dose. Goal vanco trough = 15-20 mcg/mL D/T R/O osteomyelitis. Increase vancomycin dose to vancomycin 1500 mg IV q8h @ 0200, 1000, and 1800. First dose of new regimen @ 1800 on 08/10/17. Vancomycin trough to be drawn before the 4th dose on 08/11/17 @ 17:30. Pharmacy will follow and or advise on antibiotics use as needed. Thank you for the consult.
--- NOTE | 2017-08-10 17:20 | NUR ---
MEDICATED WITH PERCOCET PO FOR C/O 9/10 RIGHT FOOT PAIN. ICE PACK APPLIED TO RIGHT ANKLE. CALL LIGHT WITHIN REACH.
[2017-08-10 18:52] VITALS: BP 128/60
--- NOTE | 2017-08-10 21:30 | NUR ---
PT RESTING AT BEDSIDE;PT COMPLAINS OF RIGHT FOOT PAIN RATING 9/10 ON THE PAIN SCALE AND REQUESTS PRN PAIN MEDICATION;PT MEDICATED WITH PRN PERCOCET 2 COMBO AT THIS TIME;ASSESSMENT COMPLETED;#22G TO RIGHT HAND FLUSHED AND PATENT,#22G TO RIGHT FOREARM INFUSING NS @ 100ML/HR WELL;RESPIRATIONS EVEN AND UNLABORED ON RA;PT APPEARS VERY DROWSY AT THIS TIME;RIGHT LEG ELEVATED ON X2 PILLOWS,DRESSING CDI;SCD PLACED ON THE LEFT LEG;COMMODE AT BEDSIDE;TELE MONTIOR IN PLACE;PT DENIES ANY OTHER NEEDS AT THIS TIME;SAFETY PRECAUTIONS REINFORCED;PT EDUCATED TO CALL FOR ASSISTANCE IF NEEDED;BED IN LOWEST POSITION WITH CALL LIGHT IN REACH;WILL CONTINUE TO MONITOR
[2017-08-10 23:43] VITALS: BP 107/71
--- NOTE | 2017-08-11 00:40 | NUR ---
PT APPEARS TO BE SLEEPING IN HIGH FOWLERS POSITION;NO S/S OF DISTRESS NOTED;RESPIRATIONS EVEN AND UNLABORED ON RA;IV FLUIDS INFUSING WELL TO RIGHT FOREARM;TELE MONITOR IN PLACE;RIGHT FOOT ELEVATED ON X2 PILLOWS;FALL PRECAUTIONS IN PLACE;CALL LIGHT IN REACH;WILL CONTINUE TO MONITOR
--- NOTE | 2017-08-11 03:45 | NUR ---
PT RESTING AT BEDSIDE;PT COMPLAINS OF RIGHT FOOT PAIN RATING 8/10 ON THE PAIN SCALE AND REQUESTS PRN PAIN MEDICATION;PT MEDICATED WITH PRN PERCOCET 2 COMBO;IV FLUIDS INFUSING WELL TO RIGHT FOREARM;RIGHT FOOT ELEVATED ON X2 PILLOWS WITH DRESSING CDI;PT DENIES ANY OTHER NEEDS AT THIS TIME;CALL LIGHT WITHIN REACH;WILL CONTINUE TO MONITOR
[2017-08-11 04:00] VITALS: BP 108/65
[2017-08-11 05:53] LABS: HEMATOCRIT 31.8 % (37.0-47.0); HEMOGLOBIN 10.4 g/dl (12.0-16.0); IMMATURE GRANULOCYTES 0.6 % (0.0-1.0); MEAN CORPUSCULAR HGB 27.8 pG CALC (26.0-32.0); MEAN CORPUSCULAR HGB CONC 32.7 g/L CALC (32.0-36.0); NEUT# 9.61 thou/uL (2.00-7.15); RED BLOOD COUNT 3.74 mill/uL (4.20-5.60); RED CELL DISTRI WIDTH 13.5 % (11.5-15.5)
[2017-08-11 05:54] LABS: ANION GAP 14 (6-22 (CALC)); BUN 10 mg/dL (7-17); BUN/CREATININE RATIO 15 (12-20 (CALC)); CALCIUM 8.3 mg/dL (8.4-10.2); CARBON DIOXIDE 25 mmol/l (22-30); CHLORIDE 107 mmol/l (95-108); CREATININE 0.7 mg/dL (0.5-1.0); GFR > 60 ML/MIN (>=60 (CALC)); GFR FOR AFR.AMER. > 60 ML/MIN (>=60 (CALC)); GLUCOSE 106 mg/dL (65-105); MAGNESIUM 1.7 mg/dL (1.6-2.3); POTASSIUM 4.1 mmol/l (3.5-5.1); SODIUM 142 mmol/l (137-146)
--- NOTE | 2017-08-11 07:00 | NUR ---
RECEIVED BEDSIDE REPORT FROM PETAR VENCES. RESTING IN HIGH FOWLERS WITH EYES CLOSED, AWAKENS WITH VERBAL STIMULI. RESPS EVEN AND UNLABORED ON ROOM AIR, TELE MONITOR IN PLACE. VOICES NO NEEDS AT THIS TIME. #22 RFA INFUSING WITHOUT DIFFICULTY, SITE APPEARS HEALTHY. RIGHT FOOT DRESSING CDI, ELEVATED ON 2 PILLOWS. PLAN OF CARE DISCUSSED. SAFETY PRECAUTIONS REINFORCED. BED IN LOWEST POSITION WITH WHEELS LOCKED. CALL LIGHT WITHIN REACH. WILL CONTINUE TO MONITOR.
[2017-08-11 08:49] VITALS: BP 113/68
--- NOTE | 2017-08-11 08:50 | NUR ---
RESTING IN BED WITH EYES CLOSED, AWAKENS TO VERBAL STIMULI. RESPS EVEN AND UNLABORED ON ROOM AIR, TELE MONITOR IN PLACE. RIGHT FOOT ELEVATED ON 2 PILLOWS, DRESSING CDI. REFUSES ICE PACK. MEDICATED WITH PERCOCET PO FOR C/O 8/10 LEFT FOOT PAIN. CALL LIGHT WITHIN REACH. ENCOURAGED PT TO CALL FOR ANY NEEDS.
--- NOTE | 2017-08-11 10:50 | NUR ---
PATIENT WAS SEEN LONG SITTING IN BED TODAY. SHE WAS MORE ALERT TODAY BUT COMPLAINS OF THE SAME PAIN. THERE WAS TENDERNESS ON THE ANTERLATERAL LEG WITH MILD PITTING EDEMA. THE PAIN WAS PARTIALLY RELIEVED BY DOING ANKLE PUMPS WHILE SHORT SITTING AT THE EDGE OF BED. PATIENT COULD PERFORM BED MOBILITY AND TRANSFERS INDEPENDENTLY BUT NEEDED STAND BY ASSIST WHILE AMBULATING WITH WALKER. SHE HAS MILD SAFETY ISSUES SHE FORGETS TO REACH BACK BEFORE SHE SITS DOWN. PATIENT RETURNED TO BED USING THE ROLLING WALKER AND SBA.
--- NOTE | 2017-08-11 11:05 | NUR ---
DR FRENCH IN WITH PT, NEW ORDERS RECEIVED.
[2017-08-11 11:07] VITALS: BP 118/76
--- NOTE | 2017-08-11 12:50 | NUR ---
MEDICATED WITH PERCOCET PO FOR C/O 8 RIGHT FOOT PAIN. REFUSES ICE PACK OR ELEVATING RIGHT FOOT. DRESSING CDI. CALL LIGHT WITHIN REACH.
[2017-08-11 16:00] VITALS: BP 138/86
--- NOTE | 2017-08-11 16:00 | NUR ---
SITTING IN BEDSIDE CHAIR WITH FEET DANGLING. REFUSES TO ELEVATE RIGHT FOOT. REFUSES TELE MONITOR. WILL CONTINUE TO MONITOR.
--- NOTE | 2017-08-11 17:50 | NUR ---
SITTING IN BEDSIDE CHAIR WITH FEET DANGLING. REFUSES TO ELEVATE RIGHT FOOT. REFUSES ICE PACK. MEDICATED WITH PERCOCET PO FOR C/O 8/10 RIGHT FOOT PAIN. CALL LIGHT WITHIN REACH.
--- NOTE | 2017-08-11 19:00 | NUR ---
BEDSIDE REPORT RECEIVED FROM SURENDRA MORALES. PT RESTING IN SEMI FOWLERS WATCHING TV. C/O HEADACHE AT THIS TIME; MEDICATION GIVEN EVERY 4 HOURS PRN ORDERED. RESPIRATIONS EVEN AND UNLABORED ON RA. PLAN OF CARE REVIEWED. PT ENCOURAGED TO VERBALIZE CONCERNS. STATES UNDERSTANDING. DRESSING TO RIGHT FOOT CDI; ELEVATED ON 2 PILLOWS IN ICE PACK APPLIED. PT CONTINUES TO DECLINE KETTLE COORDINATOR; NOT IN PLACE. SAFETY MEASURES IN PLACE. CALL LIGHT WITHIN REACH.
[2017-08-11 19:35] VITALS: BP 121/75
--- NOTE | 2017-08-11 19:54 | NUR ---
SPOKE WITH OUR LAB AND THEN [facility] THEY DO NOT HAVE SPECIMEN AT THIS TIME. DR. GARCIA INQUIRED ABOUT SPECIMEN RESULTS. . WAITING ON RESULTS.
--- NOTE | 2017-08-12 00:25 | NUR ---
PT UP TO BSC AT THIS TIME TO VOID. C/O CONTINUOUS THROBBING PAIN TO RIGHT FOOT; PAIN MEDICATION GIVEN FREQUENTLY ABLE. RESPIRATIONS EVEN AND UNLABORED. ABT INFUSED WITHOUT DIFFICULTY. NO ADVERSE REACTIONS NOTED. D/C'D IV SITE TO RIGHT HAND R/T OCCLUSION. SAFETY MEASURES IN PLACE. CALL LIGHT WITHIN REACH.
--- NOTE | 2017-08-12 04:18 | NUR ---
PT AWAKE AND RESTLESS AT THIS TIME. STATES THAT SHE NEEDS A CIGARETTE, BUT HAS NONE. DENIES OFFER TO INQUIRE ABOUT AN ORDER FOR NICATINE PATCH. ATTEMPTING TO REACH ON PHONE. CONTINUES TO RECEIVE PERCOCET EVERY 4 HOURS FOR RIGHT FOOT PAIN. NO CHANGES IN ASSESSMENT NOTED. ONLY OTHER REQUEST IS FOR DRINK/SNACKS WHICH WERE GIVEN. SAFETY MEASURES IN PLACE. CALL LIGHT WITHIN REACH.
[2017-08-12 04:45] VITALS: BP 114/72
[2017-08-12 06:05] LABS: HEMOGLOBIN 10.4 g/dl (12.0-16.0); IMMATURE GRANULOCYTES 0.4 % (0.0-1.0); MEAN CELL VOLUME 85.8 fL CALC (80.0-100.0); MEAN CORPUSCULAR HGB 27.9 pG CALC (26.0-32.0); MEAN CORPUSCULAR HGB CONC 32.5 g/L CALC (32.0-36.0); NEUT# 7.87 thou/uL (2.00-7.15); RED BLOOD COUNT 3.73 mill/uL (4.20-5.60); RED CELL DISTRI WIDTH 13.5 % (11.5-15.5)
[2017-08-12 06:08] LABS: ANION GAP 15 (6-22 (CALC)); BUN 9 mg/dL (7-17); BUN/CREATININE RATIO 14 (12-20 (CALC)); CALCIUM 8.7 mg/dL (8.4-10.2); CARBON DIOXIDE 26 mmol/l (22-30); CHLORIDE 107 mmol/l (95-108); CREATININE 0.7 mg/dL (0.5-1.0); GFR > 60 ML/MIN (>=60 (CALC)); GFR FOR AFR.AMER. > 60 ML/MIN (>=60 (CALC)); GLUCOSE 102 mg/dL (65-105); MAGNESIUM 1.8 mg/dL (1.6-2.3); POTASSIUM 4.1 mmol/l (3.5-5.1); SODIUM 144 mmol/l (137-146)
[2017-08-12 08:13] VITALS: BP 122/66
--- NOTE | 2017-08-12 09:07 | NUR ---
Vancomycin single level analysis: Current dose being given: 1500MG Current dosing interval: 8 HRS Current infusion time (hrs): 2 Single level Trough Data: Trough level obtained: 16 mcg/ml Timing of trough - Number of hours before next dose: 0.5 Hrs Desired peak: 30 mcg/ml Desired trough: 15 mcg/ml CONTINUE VANCO 1500MG Q8H NEXT TROUGHT WILL BE 08/14/17 @6833
[2017-08-12 15:14] VITALS: BP 140/86
--- NOTE | 2017-08-12 15:23 | NUR ---
PT MEDICATED FOR RT FOOT PAIN 08/29; CALL BENOIT WITHIN REACH; WILL CONTINUE TO MONITOR.
[2017-08-12 19:30] VITALS: BP 145/92
--- NOTE | 2017-08-12 19:33 | NUR ---
BEDSIDE REPORT RECEIVED FROM SURENDRA SAHA. PT SITTING UP IN BED. C/O PAIN TO RIGHT FOOT; RECEIVING PERCOCET NEEDED. RESPIRATIONS EVEN AND UNLABORED ON ROOM AIR. PLAN OF CARE REVIWED. PT ENCOURAGED TO VERBALIZE CONCERNS. STATES UNDERSTANDING. PT HAS NO REQUESTS AT THIS TIME. SAFETY MEASURES IN PLACE. CALL LIGHT WITHIN REACH.
--- NOTE | 2017-08-13 00:12 | NUR ---
PT RECEIVING ABT AT THIS TIME WITH NO ADVERSE EFFECTS NOTED. INFUSING WITHOUT DIFFICULTY. PT INQUIRING ABOUT PAIN MEDICAITON; GIVEN AT 2100. PT UP TO BSC PRN. NON WEIGHT BEARTING TO RIGHT FOOT. SAFETY MEASURES IN PLACE. CALL LIGHT WITHIN REACH.
[2017-08-13 04:30] VITALS: BP 159/75
--- NOTE | 2017-08-13 04:49 | NUR ---
PT REQUESTED PAIN MEDICATION AT THIS TIME. EARLIER IN SHIFT PT AMBULATED TO BATHROOM UNASSISTED. PT REMINDED THAT HER RIGHT FOOT IS NON WEIGHT BEARING AND SHE SHOULD BE USING BSC. STATES THAT SHE WAS WALKING ON HER HEEL. AT THIS TIME PT IS LAYING IN BED GROANING WITH FACIAL WINCING C/O PAIN AND WEAKNESS. STATES THAT PAIN IS GENERALIZED. PT STARTED MENSTRAL CYCLE YESTERDAY; STATES THAT CURRENT CONDITION IS NOT RELATED TO PERIOD. AFEBRILE. WILL CONTINUE TO MONITOR.
--- NOTE | 2017-08-13 05:57 | NUR ---
CALLED [facility] FOR UPDATE ON TISSUE SAMPLE. [employer] OPERATOR HELPER STATES "NOTHING ON PRIMARY PLATES AND THEY ARE CURRENTLY SUBBING THE BROTHS."
[2017-08-13 06:01] LABS: ALBUMIN 2.9 g/dL (3.2-5.0); ALKALINE PHOSPHATASE 264 u/l (38-126); ANION GAP 15 (6-22 (CALC)); BILIRUBIN, TOTAL 0.4 mg/dL (0.0-1.4); BUN 7 mg/dL (7-17); BUN/CREATININE RATIO 12 (12-20 (CALC)); CALCIUM 8.9 mg/dL (8.4-10.2); CARBON DIOXIDE 26 mmol/l (22-30); CHLORIDE 110 mmol/l (95-108); CREATININE 0.6 mg/dL (0.5-1.0); GFR > 60 ML/MIN (>=60 (CALC)); GFR FOR AFR.AMER. > 60 ML/MIN (>=60 (CALC)); GLUCOSE 44 mg/dL (65-105); POTASSIUM 2.9 mmol/l (3.5-5.1); SGOT/AST 42 u/l (14-36); SGPT/ALT 50 u/l (9-52); SODIUM 148 mmol/l (137-146); TOTAL PROTEIN 6.7 g/dL (6.3-8.2)
[2017-08-13 06:07] LABS: HEMATOCRIT 31.3 % (37.0-47.0); HEMOGLOBIN 10.2 g/dl (12.0-16.0); IMMATURE GRANULOCYTES 0.6 % (0.0-1.0); MEAN CELL VOLUME 84.4 fL CALC (80.0-100.0); MEAN CORPUSCULAR HGB 27.5 pG CALC (26.0-32.0); MEAN CORPUSCULAR HGB CONC 32.6 g/L CALC (32.0-36.0); NEUT# 7.14 thou/uL (2.00-7.15); RED BLOOD COUNT 3.71 mill/uL (4.20-5.60); RED CELL DISTRI WIDTH 13.7 % (11.5-15.5)
[2017-08-13 08:16] LABS: ANION GAP 15 (6-22 (CALC)); BUN 7 mg/dL (7-17); BUN/CREATININE RATIO 11 (12-20 (CALC)); CALCIUM 8.6 mg/dL (8.4-10.2); CARBON DIOXIDE 25 mmol/l (22-30); CHLORIDE 110 mmol/l (95-108); CREATININE 0.6 mg/dL (0.5-1.0); GFR > 60 ML/MIN (>=60 (CALC)); GFR FOR AFR.AMER. > 60 ML/MIN (>=60 (CALC)); GLUCOSE 89 mg/dL (65-105); POTASSIUM 3.2 mmol/l (3.5-5.1); SODIUM 147 mmol/l (137-146)
--- NOTE | 2017-08-13 11:30 | NUR ---
PT NOTIFIED OF NEED TO POSTPONE SX UNTIL 08/14/17 D/T ABNORMAL LABS; PT VERBALIZE UNDERSTANDING OF SAME; MEDICATED ORDERED FOR C/O LEFT FOOT PAIN 08/29; CALL BENOIT WITHIN REACH; WILL CONTINUE TO MONITOR.
--- NOTE | 2017-08-13 13:00 | NUR ---
DR. Prajapati IN TO SEE PT; DRSG CHANGE COMPLETED BY MD; PT TOLERED FAIR; WILL CONTINUE TO MONITOR.
[2017-08-13 16:05] VITALS: BP 171/87
[2017-08-13 19:03] VITALS: BP 120/65
--- NOTE | 2017-08-13 20:20 | NUR ---
NOTIFED ON PTS BS BEING 256 AT THIS TIME AND PT REQUIRED TO BE NPO AT MIDNIGHT;NEW ORDER RECEIVED
--- NOTE | 2017-08-13 21:00 | NUR ---
PT RESTING IN SUPINE POSITION WATCHING TV;PT COMPLAINS OF RIGHT FOOT PAIN RATING 6/10 ON THE PAIN SCALE AND REQUESTS PRN PERCOCET;PT EDUCATED ON PAIN MEDICATION SCHEDULE AND VERBALIZES UNDERSTANDING;ASSESSMENT COMPLETED;#22G TO RIGHT FOREARM REMOVED PER PT REQUEST WITH CATHETER INTACT;#22G TO LEFT HAND FLUSHED AND PATENT;PT EDUCATED ON BEING NPO AFTER MIDNIGHT FOR SX ON 08/14/17;DRESSING TO RIGHT FOOT,CDI AT THIS TIME;PT DENIES ANY OTHER NEEDS;SAFETY PRECAUTIONS REINFORCED;PT EDUCATED TO CALL FOR ASSISTANCE IF NEEDED;FALL PRECAUTIONS IN PLACE WITH BED IN THE LOWEST POSITION;CALL LIGHT IN REACH;WILL CONTINUE TO MONITOR
--- NOTE | 2017-08-13 23:00 | NUR ---
SPOKE WITH ESTHER,FROM [facility],REGARDING VANCO ORDER;TIMES WERE CHANGED THROUGHOUT THE DAY SO IT WOULD ONLY ALLOW ME TO SCAN MY 2230 DOSE FOR THE DC'D ORDER NOT FOR THE ACTIVE ORDER
--- NOTE | 2017-08-13 23:25 | NUR ---
PT COMPLAINS OF RIGHT FOOT PAIN RATING 10/10 ON THE PAIN SCALE AND REQUESTS PAIN MEDICATION;PT MEDICATED WITH PRN PERCOCET 1 COMBO;PT DENIES ANY OTHER NEEDS AT THIS TIME;PT EDUCATED AGAIN ON BEING NPO AFTER MIDNIGHT AND VERBALIZES UNDERSTANDING;CALL LIGHT IN REACH;WILL CONTINUE TO MONITOR
[2017-08-14] VITALS (11 sets, daily range): BP systolic 125–179; BP diastolic 60–96
--- NOTE | 2017-08-14 05:00 | NUR ---
PT COMPLAINS OF RIGHT FOOT PAIN RATING 10/10 ON THE PAIN SCALE;PT MEDICATED WITH PRN MORPHINE AT THIS TIME;PT RE-EDUCATED TO KEEP RIGHT FOOT ELEVATED;DRESSING REMAINS,CDI;PT DENIES ANY OTHER NEEDS AT THIS TIME;CALL LIGHT IN REACH;WILL CONTINUE TO MONITOR
[2017-08-14 05:21] LABS: HEMATOCRIT 29.9 % (37.0-47.0); HEMOGLOBIN 9.6 g/dl (12.0-16.0); IMMATURE GRANULOCYTES 0.8 % (0.0-1.0); MEAN CELL VOLUME 84.5 fL CALC (80.0-100.0); MEAN CORPUSCULAR HGB 27.1 pG CALC (26.0-32.0); MEAN CORPUSCULAR HGB CONC 32.1 g/L CALC (32.0-36.0); NEUT# 5.35 thou/uL (2.00-7.15); RED BLOOD COUNT 3.54 mill/uL (4.20-5.60); RED CELL DISTRI WIDTH 13.6 % (11.5-15.5)
[2017-08-14 05:33] LABS: ANION GAP 13 (6-22 (CALC)); BUN 6 mg/dL (7-17); BUN/CREATININE RATIO 8 (12-20 (CALC)); CALCIUM 8.5 mg/dL (8.4-10.2); CARBON DIOXIDE 27 mmol/l (22-30); CHLORIDE 107 mmol/l (95-108); CREATININE 0.7 mg/dL (0.5-1.0); GFR > 60 ML/MIN (>=60 (CALC)); GFR FOR AFR.AMER. > 60 ML/MIN (>=60 (CALC)); GLUCOSE 173 mg/dL (65-105); MAGNESIUM 1.7 mg/dL (1.6-2.3); POTASSIUM 3.7 mmol/l (3.5-5.1); SODIUM 145 mmol/l (137-146)
--- NOTE | 2017-08-14 07:00 | NUR ---
RECEIVED BEDSIDE REPORT FROM PETAR VENCES. RESTING IN BED WITH EYES CLOSED, AWAKENS EASILY. RESPS EVEN AND UNLABORED ON ROOM AIR. DRESSING TO RIGHT FOOT CDI. VOICES NO NEEDS AT THIS TIME. PLAN OF CARE DISCUSSED. SAFETY PRECAUTIONS REINFORCED. BED IN LOWEST POSITION WITH WHEELS LOCKED. CALL LIGHT WITHIN REACH. WILL CONTINUE TO MONITOR.
--- NOTE | 2017-08-14 09:37 | NUR ---
VANCOMYCIN TROUGH ON 08/14/17 WAS 23 THIS READING WAS NOT A TRUE TROUGH THE TIMES OF THE MEDICATIONS WERE CHANGED DUE TO THE FACT THAT THE PATIENT REQUIRED A POTASSIUM INFUSION THAT RAN OVER 4 HOURS. RESTART VANCO 1500MG Q8H @1430 AND THE NEXT TROUGH WILL BE DUE AT 1400 ON 08/15/17
--- NOTE | 2017-08-14 09:55 | NUR ---
RESTING IN BED WITH EYES OPEN. RESPS EVEN AND UNLABORED ON ROOM AIR. MEDICATED WITH MORPHINE 2MG IVP FOR C/O 10/10 RIGHT FOOT PAIN. CALL LIGHT WITHIN REACH. ENCOURAGED PT TO CALL FOR ANY NEEDS.
--- NOTE | 2017-08-14 10:00 | NUR ---
PHONE CALL FROM DR GARCIA, NO NEW ORDERS RECEIVED.
[2017-08-14 11:14] LABS: BARBITURATES NEGATIVE (NEGATIVE); COCAINE NEGATIVE (NEGATIVE); METHADONE NEGATIVE (NEGATIVE); TETRAHYDROCANNABIONOL NEGATIVE (NEGATIVE); TRICYLIC ANTIDEPRESSANTS NEGATIVE (NEGATIVE)
[2017-08-14 11:15] LABS: OXCYCODONE POSITIVE (NEGATIVE)
--- NOTE | 2017-08-14 11:15 | NUR ---
TO OR VIA STRETCHER ACCOMPANIED BY YAMILETH AGOSTO.
--- NOTE | 2017-08-14 13:50 | NUR ---
RETURNED FROM OR VIA STRETCHER ACCOMPANIED BY LOPEZ AGOSTO. ASSISTED TO BEDSIDE COMMODE. RESPS EVEN AND UNLABORED ON ROOM AIR. C/O RIGHT FOOT THROBBING, ELEVATED ON 2 PILLOWS. DRESSING TO RIGHT FOOT CDI, WILL MEDICATE PER MAR. CALL LIGHT WITHIN REACH. WILL CONTINUE TO MONITOR.
--- NOTE | 2017-08-14 14:40 | NUR ---
IN SUPINE POSITION WITH RIGHT FOOT ELEVATED ON 2 PILLOWS. #20 RAC INFUSING WITHOUT DIFFICULTY, SITE APPEARS HEALTHY. MEDICATED WITH PERCOCET PO FOR C/O 8/10 RIGHT FOOT PAIN. FAMILY AT BEDSIDE. CALL LIGHT WITHIN REACH. WILL CONTINUE TO MONITOR.
--- NOTE | 2017-08-14 15:20 | NUR ---
Eduar HELD DUE TO SURGICAL I & D TODAY.
--- NOTE | 2017-08-14 20:20 | NUR ---
PT RESTING IN SUPINE POSITION;PT COMPLAINS OF RIGHT FOOT PAIN RATING 10/10 ON THE PAIN SCALE AND REQUESTS PRN PAIN MEDICATION;PT MEDICATED WITH PRN PERCOCET 1 COMBO;ASSESSMENT COMPLETED;DRESSING TO RIGHT FOOT REMAINS,CDI;PT RE-EDUCATED TO KEEP FOOT ELEVATED;SCD IN PLACE ON LEFT LEG;#20G TO RAC FLUSHED AND PATENT;RESPIRATIONS EVEN AND UNLABORED ON RA;COMMODE AT BEDSIDE;PT DENIES ANY OTHER NEEDS AT THIS TIME;PAIN MEDICATION SCHEDULE RE-EDUCATED;SAFETY PRECAUTIONS REINFORCED;PT EDUCATED TO CALL FOR ASSISTANCE IF NEEDED;BED IN LOWEST POSITION WITH CALL LIGHT IN REACH;WILL CONTINUE TO MONITOR
--- NOTE | 2017-08-15 01:40 | NUR ---
PT APPEARS TO BE SLEEPING IN SUPINE POSITION;RIGHT FOOT ELEVATED ON X2 PILLOWS;NO S/S OF DISTRESS NOTED;RESPIRATIONS EVEN AND UNLABORED ON RA;FALL PRECAUTIONS IN PLACE;CALL LIGHT IN REACH;WILL CONTINUE TO MONTIOR
[2017-08-15 03:30] VITALS: BP 151/65
--- NOTE | 2017-08-15 03:40 | NUR ---
PT COMPLAINS OF RIGHT FOOT PAIN RATING 10/10 ON THE PAIN SCALE AND REQUESTS PAIN MEDICATION;PT MEDICATED WITH PRN PERCOCET 1 COMBO AT THIS TIME;PT RE-EDUCATED AGAIN ABOUT KEEPING HER RIGHT LEG ELEVATED;PT DENIES ANY OTHER NEEDS AT THIS TIME;COMMODE AT BEDSIDE;FALL PRECAUTIONS IN PLACE;CALL LIGHT IN REACH;WILL CONTINUE TO MONITOR
[2017-08-15 06:15] LABS: HEMATOCRIT 27.7 % (37.0-47.0); HEMOGLOBIN 9.1 g/dl (12.0-16.0); IMMATURE GRANULOCYTES 1.1 % (0.0-1.0); MEAN CELL VOLUME 84.2 fL CALC (80.0-100.0); MEAN CORPUSCULAR HGB 27.7 pG CALC (26.0-32.0); MEAN CORPUSCULAR HGB CONC 32.9 g/L CALC (32.0-36.0); NEUT# 5.75 thou/uL (2.00-7.15); RED BLOOD COUNT 3.29 mill/uL (4.20-5.60); RED CELL DISTRI WIDTH 13.6 % (11.5-15.5)
[2017-08-15 06:23] LABS: ANION GAP 13 (6-22 (CALC)); BUN 8 mg/dL (7-17); BUN/CREATININE RATIO 11 (12-20 (CALC)); CALCIUM 8.3 mg/dL (8.4-10.2); CARBON DIOXIDE 31 mmol/l (22-30); CHLORIDE 102 mmol/l (95-108); CREATININE 0.7 mg/dL (0.5-1.0); GFR > 60 ML/MIN (>=60 (CALC)); GFR FOR AFR.AMER. > 60 ML/MIN (>=60 (CALC)); GLUCOSE 110 mg/dL (65-105); MAGNESIUM 1.5 mg/dL (1.6-2.3); POTASSIUM 3.5 mmol/l (3.5-5.1); SODIUM 142 mmol/l (137-146)
--- NOTE | 2017-08-15 07:00 | NUR ---
RECEIVED BEDSIDE REPORT FROM PETAR VENCES. RESTING IN BED WITH EYES CLOSED, AWAKENS EASILY. RESPS EVEN AND UNLABORED ON ROOM IAR. DRESSING TO RIGHT FOOT CDI. VOICES NO NEEDS AT THIS TIME. PLAN OF CARE DISCUSSED. SAFETY PRECAUTIONS REINFORCED. BED IN LOWEST POSITION WITH WHEELS LOCKED. CALL LIGHT WITHIN REACH. WILL CONTINUE TO MONITOR.
[2017-08-15 08:56] VITALS: BP 137/80
--- NOTE | 2017-08-15 15:15 | NUR ---
PHYSICAL THERAPY IN WITH PT.
--- NOTE | 2017-08-15 15:45 | NUR ---
Pt. seen this PM for gait training, pt. in agreement to proceed with treatment. Gait belt and non skid socks on prior to treatment. Pt. education for two point gait with walker and NWB on R LE. Supine to sit was independent with supervision. Sit to stand to walker with verbal cues for UE push off from bed. Pt. performed two point gait NWB on R LE with walker x20 feet and CGA x1. Stand to sit with verbal cues for safety awareness. Pt. without complaints, call light and bedside table left within reach. Nurse informed.
--- NOTE | 2017-08-15 16:30 | NUR ---
INSISTS TO GO OFF THE FLOOR TO SMOKE. INSTRUCTED PT SMOKING INHIBITS HEALING PROCESS, OFFERED NICOTINE PATCH, WHICH WAS REFUSED. PT OFF THE FLOOR ACCOMPANIED BY FAMILY MEMBER.
--- NOTE | 2017-08-15 16:39 | NUR ---
S: CELINE JUÁREZ is a 41 F who presents with right foot cellulitis with r/o osteomyelitis. She has a history of IIDM, HTN, neuropathy, depression, and bipolar disorder. All medications in patient's chart were reviewed. O: VS: BP 151/65 mmHg, P 83 beats/min, RR 16 breaths/min, T 98.4 degrees F W 80 kg, HT 68 in, Scr 0.7 mg/dL, CrCl= 160 mL/min Vancomycin trough (08/15/17 @ 1405): 21 mcg/mL. A: Blood culture shows no growth. Wound culture shows streptococcus agalcatiae (B) which is sensitive to both ampicillin and vancomycin. P: Patient is also on Zosyn 4.5 g IV q6h at 0030, 0600, 1200, and 1800. Vancomycin ordered for pharmacy to dose. Pt was receiving vancomycin 1500 mg IV q8h @ 0630, 1430, and 2230. Trough indicates that dose is supratherapeutic. Therefore, change vancomycin dose to vancomycin 2 g IV q12h with first dose to be given 08/15/17 @ 2000. Vancomycin trough to be drawn 08/17/17 before 4th dose @ 0730. Goal vancomycin trough remains 15-20 mcg/mL. Pharmacy will follow and or advise on antibiotics use as needed. Thank you for the consult.
--- NOTE | 2017-08-15 16:40 | NUR ---
RETURNED TO ROOM VIA WHEELCHAIR ACCOMPANIED BY FAMILY MEMBER.
--- NOTE | 2017-08-15 18:38 | NUR ---
MEDICATED WITH PERCOCET PO FOR C/O 07/30 RIGHT FOOT PAIN. DRESSING TO RIGHT FOOT CDI. CALL LIGHT WITHIN REACH.
--- NOTE | 2017-08-15 19:00 | NUR ---
BEDSIDE REPORT RECEIVED FROM SURENDRA MORALES. PT SITTING UP IN BED WATCHING TV. ASKS AT THIS TIME TO GO DOWNSTAIRS TO SMOKE. C/O PAIN TO RIGHT FOOT. RESPIRATIONS EVEN AND UNLABORED. PLAN OF CARE REVIEWED. PT ENCOURGED TO VERBALIZE CONCERNS. PLACED ON CONTACT PRECAUTIONS FOR NEW ONSET OF MRSA TO RIGTH FOOT WOUND. SAFETY MEASURES IN PLACE. CALL LIGHT WITHIN REACH.
[2017-08-15 19:40] VITALS: BP 140/80
[2017-08-16] VITALS: BP 132/74
--- NOTE | 2017-08-16 | NUR ---
PT ASLEEP AT THIS TIME. NO SIGNS OF DISTRESS NOTED. PERCOCET GIVEN AFTER REQUESTED. RESPIRATIONS EVEN AND UNLABORED. RIGHT LEG ELEVATED ON 2 PILLOWS. NEW IV TO LEFT WRIST APPEARS HEALHY. VANCO INFUSED WITHOUT DIFFICUTLY. SAFETY MEASURES IN PLACE. CALL LIGHT WITHIN REACH.
[2017-08-16 03:39] VITALS: BP 149/84
--- NOTE | 2017-08-16 04:02 | NUR ---
INCREASED WEAKNESS AND LETHARGY NOTED. BLOOD SUGAR AT 0320 WAS 51. ORANGE JUICE AND CRACKERS GIVEN. AT THIS TIME BLOOD SUGAR IS 114. PT AWAKE AND ALERT. WILL CONTINUE TO MONITOR.
[2017-08-16 06:31] LABS: HEMATOCRIT 26.8 % (37.0-47.0); HEMOGLOBIN 8.8 g/dl (12.0-16.0); MEAN CELL VOLUME 84.3 fL CALC (80.0-100.0); MEAN CORPUSCULAR HGB 27.7 pG CALC (26.0-32.0); MEAN CORPUSCULAR HGB CONC 32.8 g/L CALC (32.0-36.0); RED BLOOD COUNT 3.18 mill/uL (4.20-5.60); RED CELL DISTRI WIDTH 13.5 % (11.5-15.5)
[2017-08-16 06:39] LABS: ANION GAP 12 (6-22 (CALC)); BUN 8 mg/dL (7-17); BUN/CREATININE RATIO 12 (12-20 (CALC)); CALCIUM 8.4 mg/dL (8.4-10.2); CARBON DIOXIDE 30 mmol/l (22-30); CHLORIDE 105 mmol/l (95-108); CREATININE 0.7 mg/dL (0.5-1.0); GFR > 60 ML/MIN (>=60 (CALC)); GFR FOR AFR.AMER. > 60 ML/MIN (>=60 (CALC)); GLUCOSE 87 mg/dL (65-105); POTASSIUM 3.3 mmol/l (3.5-5.1); SODIUM 145 mmol/l (137-146)
[2017-08-16 07:16] VITALS: BP 144/82
--- NOTE | 2017-08-16 07:18 | NUR ---
REPORT RECEIVED FROM VANGIE MALDONADO. PT SUPINE IN BED. DENIES PAIN. REPORTING OF CONCERNS ENCOURAGED. PT STATES "I WANT TO GO HOME." PLAN OF CARE REVIEWED. DISCHARGE PROCESS REVIEWED. CALL LIGHT REINFORCED. PT STATES UNDERSTANDING.
--- NOTE | 2017-08-16 11:08 | NUR ---
PT LEFT FLOOR VIA WHEELCHAIR AT THIS TIME. STATES SHE IS GOING TO SMOKE. PT INFORMED FACILITY IS TOBACCO FREE. RELEASE FROM LIABILITY FORM SIGNED BY PT.
--- NOTE | 2017-08-16 12:52 | NUR ---
Pt. seen this AM for therapeutic exercises, gait belt and non skid socks applied prior to doing so. Pt. refused to gait train with walker today due to discomfort weight bearing on hands because of IV site, nurse aware. However pt. in agreement to participate in exercises. Standing at bedside with hands on railing for balance pt. completed right hip abduction 2x10 repetitions, right knee flexion x10 repetitions, and right knee and hip flexion x10 repetitions. Pt. then completed sitting exercises including left hip and knee flexion 2x10 repetitions, left knee LAQ exercises, right knee LAQ exercises, bilateral active elbow flexion and bilateral active shoulder flexion. Pt. left sitting on bed comfortably and without complaints.
--- NOTE | 2017-08-16 13:19 | NUR ---
PT SUPINE IN BED. NO COMPLAINTS. FLAT AFFECT NOTED. EMOTIONAL SUPPORT PROVIDED TO PT.
[2017-08-16 16:25] VITALS: BP 144/73
--- NOTE | 2017-08-16 18:22 | NUR ---
PT LEFT FLOOR VIA WHEELCHAIR.
[2017-08-16 19:20] VITALS: BP 148/72
--- NOTE | 2017-08-16 20:30 | NUR ---
PT RESTING IN SEMI FOWLERS POSITION;PT COMPLAINS OF RIGHT FOOT PAIN RATING 8/10 ON THE PAIN SCALE AND REQUESTS PAIN MEDICATION;PT MEDICATED WITH PRN PERCOCET;#20G TO LEFT WRIST FLUSHED AND PATENT;ASSESSMENT COMPLETED;RESPIRATIONS EVEN AND UNLABORED;PT RE-EDUCATED ON GETTING HER NIGHT SNACK SO HER SUGAR DOES NOT DROP THROUGHOUT THE NIGHT AND VERBALIZES UNDERSTANDING;RIGHT LEG ELEVATED ON X2 PILLOWS,PT REFUSED SCD;SAFETY PRECAUTIONS REINFORCED;PT EDUCATED TO CALL FOR ASSISTANCE IF NEEDED;CALL LIGHT IN REACH;WILL CONTINUE TO MONITOR
--- NOTE | 2017-08-16 20:40 | NUR ---
PT OFF FLOOR TO SMOKE AT THIS TIME
--- NOTE | 2017-08-16 21:50 | NUR ---
PT RETURNED TO FLOOR AT THIS TIME IN STABLE CONDITION
--- NOTE | 2017-08-17 01:30 | NUR ---
PT APPEARS TO BE SLEEPING WITH EYES CLOSED IN SUPINE POSITION;NO S/S OF DISTRESS NOTED;RESPIRATIONS EVEN AND UNLABORED ON RA;COMMODE AT BEDSIDE;CALL LIGHT IN REACH;WILL CONTINUE TO MONITOR
--- NOTE | 2017-08-17 02:50 | NUR ---
PT COMPLAINS OF 10/10 RIGHT FOOT PAIN AND REQUESTS PAIN MEDICATION;PT MEDICATED WITH PRN PERCOCET AT THIS TIME;PT DENIES ANY OTHER NEEDS;CALL LIGHT IN REACH;WILL CONTINUE TO MONITOR
[2017-08-17 04:26] VITALS: BP 120/71
--- NOTE | 2017-08-17 04:50 | NUR ---
PT RESTING IN SUPINE POSITION;PT DENIES ANY NEEDS AT THIS TIME;RESPIRATIONS EVEN AND UNLABORED ON RA;PT RE-EDUCATED TO ELEVATE RIGHT FOOT;CALL LIGHT IN REACH;WILL CONTINUE TO MONITOR
[2017-08-17 05:32] LABS: HEMATOCRIT 27.2 % (37.0-47.0); HEMOGLOBIN 8.9 g/dl (12.0-16.0); IMMATURE GRANULOCYTES 3.6 % (0.0-1.0); MEAN CELL VOLUME 84.7 fL CALC (80.0-100.0); MEAN CORPUSCULAR HGB 27.7 pG CALC (26.0-32.0); MEAN CORPUSCULAR HGB CONC 32.7 g/L CALC (32.0-36.0); NEUT# 5.33 thou/uL (2.00-7.15); RED BLOOD COUNT 3.21 mill/uL (4.20-5.60); RED CELL DISTRI WIDTH 13.4 % (11.5-15.5)
[2017-08-17 05:44] LABS: ANION GAP 12 (6-22 (CALC)); BUN 9 mg/dL (7-17); BUN/CREATININE RATIO 14 (12-20 (CALC)); CALCIUM 8.5 mg/dL (8.4-10.2); CARBON DIOXIDE 30 mmol/l (22-30); CHLORIDE 106 mmol/l (95-108); CREATININE 0.7 mg/dL (0.5-1.0); GFR > 60 ML/MIN (>=60 (CALC)); GFR FOR AFR.AMER. > 60 ML/MIN (>=60 (CALC)); GLUCOSE 144 mg/dL (65-105); MAGNESIUM 1.8 mg/dL (1.6-2.3); POTASSIUM 3.5 mmol/l (3.5-5.1); SODIUM 144 mmol/l (137-146)
--- NOTE | 2017-08-17 07:00 | NUR ---
DR PEREZ AT BEDSIDE DISCUSSING PLAN OF CARE
--- NOTE | 2017-08-17 07:42 | NUR ---
SETUP ASSISTANCE PROVIDED WITH AM MEAL TRAWinter
--- NOTE | 2017-08-17 07:45 | NUR ---
PT LAYING IN BED AWAKE WATCHING TV, PT VERBALIZED SHE IS HAVING FOOT PAIN, PAIN MEDICATION GIVING PERSCRIBED, PT A & O X3, PERRL, LUNG SOUNDS CLEAR IN ALL ALVAREZ, 20G LW IV SALINE LOCKED, NO REDNESS OR DRAINAGE AT SITE, DRESSING ON R FOOT CD&I, AM ASSESSMENT COMPLETE, SEE INTERVENTIONS, SAFETY MEASURES REINFORCED, CALL BENOIT WITHIN REACH
--- NOTE | 2017-08-17 08:20 | NUR ---
DR FRENCH AND RAVIN HEIN AT BEDSIDE DISCUSSING PLAN OF CARE
--- NOTE | 2017-08-17 11:30 | NUR ---
PT HAD PIZZA, WINGS, AND A 2 LITER OF REGULAR SPRITE DELIVERED
--- NOTE | 2017-08-17 12:56 | NUR ---
SPOKE WITH PATIENT REGARDING INDEPENDENCE AMB WITH RW, NWAdelia R TEO. THEREFORE THERAPY WILL PLACE HER ON MONITOR FOR ANY CHANGES FOR REMAINDER OF HER ADMISSION.
--- NOTE | 2017-08-17 15:23 | NUR ---
S: CELINE JUÁREZ is a 41 F who presents with cellulitis with r/o osteomyelitis. O: Scr = 0.7, CrCl = 135.8 ml/min Vancomycin trough = 16 mcg/ml A: Wound culture showed moderate amount of MRSA which is sensitive to Bactrim, clindamycin, gentamicin, tetracycline, vancomycin and doxycycline. P: Patient is on vancomycin. Vancomycin ordered for pharmacy to dose. Continue Vancomycin 1750mg IV Q12H. Vancomycin trough on 08/17/2017 was therapeutic at 16 mcg/ml. Next trough will be taken on 08/18/2017 at 19:30 before next vancomycin dose. Vancomycin goal trough is between 15-20 mcg/ml. Pharmacy will follow and or advise on antibiotics use as needed.
--- NOTE | 2017-08-17 16:40 | NUR ---
PT SITTING ON THE SIDE OF THE BED TALKING ABOUT LEAVING AND GOING HOME, THE IMPORTANT OF HER RECEIVING THE ANTIBIOTICS IV WAS DISCUSSED WITH HER, PT VERBALIZED UNDERSTANDING, PT REMINDED TO CALL FOR ASSISTANCE, CALL BENOIT WITHIN REACH
[2017-08-17 17:13] VITALS: BP 149/71
[2017-08-17 19:15] VITALS: BP 150/72
--- NOTE | 2017-08-17 21:30 | NUR ---
PT RESTING IN SUPINE POSITION;PT COMPLAINS OF RIGHT FOOT PAIN RATING 9/10 ON THE PAIN SCALE AND REQUESTS PAIN MEDICATION;PT MEDICATED WITH PRN PERCOCET 1 COMBO;ASSESSMENT COMPLETED;#20G TO LEFT FOREARM FLUSHED AND PATENT;DRESSING TO RIGHT FOOT REMAINS CDI,PT RE-EDUCATED TO NOT BEAR WEIGHT;RESPIRATIONS EVEN AND UNLABORED ON RA;PT DENIES ANY OTHER NEEDS AT THIS TIME;SAFETY PRECAUTIONS REINFORCED;CALL LIGHT IN REACH;WILL CONTINUE TO MONITOR
--- NOTE | 2017-08-18 | NUR ---
PT APPEARS TO BE SLEEPING IN SUPINE POSITION;NO S/S OF DISTRESS NOTED;RESPIRATIONS EVEN AND UNLABORED ON RA;FALL PRECAUTIONS IN PLACE;CALL LIGHT IN REACH;WILL CONTINUE TO MONITOR
[2017-08-18 04:30] VITALS: BP 145/88
--- NOTE | 2017-08-18 04:35 | NUR ---
PT RESTING AT BEDSIDE;PT COMPLAINS OF RIGHT FOOT PAIN RATING 10/10 ON THE PAIN SCALE AND REQUESTS PAIN MEDICATION;PT ALSO REQUESTS TO GO DOWNSTAIRS TO SMOKE AT THIS TIME;PT MEDICATED WITH PRN PERCOCET 1 COMBO;DRESSING TO RIGHT FOOT REMAINS,CDI;PT DENIES ANY OTHER NEEDS AT THIS TIME;CALL LIGHT IN REACH;WILL CONTINUE TO MONITOR
--- NOTE | 2017-08-18 05:45 | NUR ---
PT APPEARS TO BE SLEEPING IN LEFT SIDE LAYING POSITION;NO S/S OF DISTRESS NOTED;RESPIRATIONS EVEN AND UNLABORED ON RA;FALL PRECAUTIONS IN PLACE;CALL LIGHT IN REACH;WILL CONTINUE TO MONITOR
--- NOTE | 2017-08-18 06:24 | NUR ---
PT LEFT FLOOR TO SMOKE VIA WC IN STABLE CONDITION
[2017-08-18 06:29] LABS: HEMATOCRIT 29.4 % (37.0-47.0); HEMOGLOBIN 9.3 g/dl (12.0-16.0); IMMATURE GRANULOCYTES 2.6 % (0.0-1.0); MEAN CELL VOLUME 86.5 fL CALC (80.0-100.0); MEAN CORPUSCULAR HGB 27.4 pG CALC (26.0-32.0); MEAN CORPUSCULAR HGB CONC 31.6 g/L CALC (32.0-36.0); NEUT# 5.48 thou/uL (2.00-7.15); RED BLOOD COUNT 3.4 mill/uL (4.20-5.60)
--- NOTE | 2017-08-18 06:42 | NUR ---
PT RETURNED TO FLOOR VIA WC ACCOMPANIED BY SECURITY ZULAY
[2017-08-18 06:48] LABS: ANION GAP 14 (6-22 (CALC)); BUN 14 mg/dL (7-17); BUN/CREATININE RATIO 18 (12-20 (CALC)); CALCIUM 8.6 mg/dL (8.4-10.2); CARBON DIOXIDE 29 mmol/l (22-30); CHLORIDE 106 mmol/l (95-108); CREATININE 0.8 mg/dL (0.5-1.0); GFR > 60 ML/MIN (>=60 (CALC)); GFR FOR AFR.AMER. > 60 ML/MIN (>=60 (CALC)); GLUCOSE 217 mg/dL (65-105); MAGNESIUM 1.7 mg/dL (1.6-2.3); POTASSIUM 3.8 mmol/l (3.5-5.1); SODIUM 145 mmol/l (137-146)
--- NOTE | 2017-08-18 07:00 | NUR ---
SHIFT CHANGE REPORT FROM VITALIY DAVEY AWAKE ALERT AND ORIENTED SITTING UP IN BED, DRESSING TO R. FOOT CDI, C/O R.FOOT PAIN, WILL CONTINUE TO MONITOR AND ADDRESS NEEDS, CALL BENOIT IN REACH.
--- NOTE | 2017-08-18 10:27 | NUR ---
WENT IN PT,S ROOM TO CHECK ON PT, OBSERVED HOLDING LEFT WRIST AND ACTUALLY SHOVING ME OUT AND CLOSING DOOR STATING SHE IS OK. DISCOVERED FEW MINUTES AFTER SHE HAD TAKEN HER IV CATHETER OUT, BLOOD ON FLOOR, WHEN OFFERED TO PLACE PRESSURE DRESSING ON SITE SHE REFUSED STATING SITE IS OK. PT LEFT UNIT IN W/C STATING SHE IS TIRED OF STAYING IN ROOM AND JUST WANTS TO GO OUTSIDE AT THIS TIME, WAS ON TOO MUCH OF A VASQUEZ TO ANSWER ANYMORE QUESTIONS SO NURSE WILL AWAIT HER RETURN IF AND WHEN SHE DOES. MD ALSO ATTEMPTED TO ROUND WITH PT BUT SHE WAS IN ROOM BUT NOT AVAILABLE FOR MEDICAL EVALUATION/ASSESSMENT.
--- NOTE | 2017-08-18 11:15 | NUR ---
NOT BACK IN ROOM YET
== END 2017-08-18 11:35 | disposition left against medical advice (07) | DRG 638 ==
LOC: ED 11:55 → ED-I 12:47 → ED 13:01 → MS2 13:02 → ED 13:24 → ED-I 13:55 → MS2 08-11 16:21
PROVIDERS: Emergency Medicine; Internal Medicine; Nurse Anesthetist, Certified Registered; Nurse Practitioner Family; ADMIT Internal Medicine; ATTEND Internal Medicine
PROC: 0J9Q0ZX Drainage of Right Foot Subcutaneous Tissue and Fascia, Open Approach, Diagnostic (ICD-10-PCS; principal; 2017-08-09)
PROC: 0J9Q0ZX Drainage of Right Foot Subcutaneous Tissue and Fascia, Open Approach, Diagnostic (ICD-10-PCS; 2017-08-14)
DX: E11.69 Type 2 diabetes mellitus with other specified complication (principal); M86.9 Osteomyelitis, unspecified; L03.115 Cellulitis of right lower limb; E11.42 Type 2 diabetes mellitus with diabetic polyneuropathy; E11.621 Type 2 diabetes mellitus with foot ulcer; M84.477A Pathological fracture, right toe(s), initial encounter for fracture; E11.65 Type 2 diabetes mellitus with hyperglycemia; L97.419 Non-pressure chronic ulcer of right heel and midfoot with unspecified severity; L02.611 Cutaneous abscess of right foot; E11.628 Type 2 diabetes mellitus with other skin complications; I10 Essential (primary) hypertension; F17.210 Nicotine dependence, cigarettes, uncomplicated; F15.10 Other stimulant abuse, uncomplicated; E78.5 Hyperlipidemia, unspecified; G89.4 Chronic pain syndrome; F14.90 Cocaine use, unspecified, uncomplicated; F43.21 Adjustment disorder with depressed mood; B95.1 Streptococcus, group B, as the cause of diseases classified elsewhere; E87.6 Hypokalemia; R60.1 Generalized edema; E83.42 Hypomagnesemia; E11.649 Type 2 diabetes mellitus with hypoglycemia without coma; B95.62 Methicillin resistant Staphylococcus aureus infection as the cause of diseases classified elsewhere; Z91.14 Patient's other noncompliance with medication regimen; Z79.4 Long term (current) use of insulin
CPT/HCPCS: J3370; J3475; Q9967

== ENCOUNTER 2017-08-31 08:48 | Emergency (ER) | payer OTHER ==
[~2017-08-31] VITALS: Ht 172.7 cm; Wt 68.2 kg
[2017-08-31 09:55] LABS: HEMOGLOBIN 11.3 g/dl (12.0-16.0); IMMATURE GRANULOCYTES 0.5 % (0.0-1.0); MEAN CELL VOLUME 82.4 fL CALC (80.0-100.0); MEAN CORPUSCULAR HGB 26.6 pG CALC (26.0-32.0); MEAN CORPUSCULAR HGB CONC 32.3 g/L CALC (32.0-36.0); RED BLOOD COUNT 4.25 mill/uL (4.20-5.60); RED CELL DISTRI WIDTH 13.5 % (11.5-15.5)
[2017-08-31 10:29] LABS: ALBUMIN 3.7 g/dL (3.2-5.0); ALKALINE PHOSPHATASE 273 u/l (38-126); ANION GAP 18 (6-22 (CALC)); BILIRUBIN, TOTAL 0.5 mg/dL (0.0-1.4); BUN 12 mg/dL (7-17); BUN/CREATININE RATIO 17 (12-20 (CALC)); CALCIUM 9.3 mg/dL (8.4-10.2); CARBON DIOXIDE 24 mmol/l (22-30); CHLORIDE 96 mmol/l (95-108); CREATININE 0.7 mg/dL (0.5-1.0); GFR > 60 ML/MIN (>=60 (CALC)); GFR FOR AFR.AMER. > 60 ML/MIN (>=60 (CALC)); SGOT/AST 21 u/l (14-36); SGPT/ALT 26 u/l (9-52); SODIUM 133 mmol/l (137-146)
[2017-08-31 10:39] LABS: GLUCOSE 708 mg/dL (65-105); POTASSIUM 5.3 mmol/l (3.5-5.1)
[2017-08-31 13:15] VITALS: BP 124/86
== END 2017-08-31 13:15 | disposition short-term general hospital (02) | DRG 638 ==
LOC: ED 08:48
PROVIDERS: Emergency Medicine
DX: E11.69 Type 2 diabetes mellitus with other specified complication (principal); M86.8X7 Other osteomyelitis, ankle and foot; E11.40 Type 2 diabetes mellitus with diabetic neuropathy, unspecified; L03.115 Cellulitis of right lower limb; I10 Essential (primary) hypertension; F31.9 Bipolar disorder, unspecified; F17.210 Nicotine dependence, cigarettes, uncomplicated; Z91.19 Patient's noncompliance with other medical treatment and regimen; Z79.4 Long term (current) use of insulin; B95.2 Enterococcus as the cause of diseases classified elsewhere
CPT/HCPCS: A9579

== ENCOUNTER 2017-09-26 10:01 | Emergency (ER) | payer OTHER ==
[~2017-09-26] VITALS: Ht 172.7 cm; Wt 90.0 kg
[2017-09-26 11:19] LABS: URINE BILIRUBIN - DIPSTICK NEGATIVE (NEGATIVE); URINE BLOOD DIPSTICK LARGE (NEGATIVE); URINE COLOR YELLOW; URINE GLUCOSE - DIPSTICK >=1000 mg/dL (NEGATIVE); URINE KETONE NEGATIVE (NEGATIVE); URINE LEUK ESTERASE NEGATIVE (NEGATIVE); URINE NITRITE - DIPSTICK NEGATIVE (Negative); URINE PROTEIN - DIPSTICK NEGATIVE (NEG-TRACE); URINE UROBILINOGEN - DIPSTICK 0.2 E.U./dL (0.2)
[2017-09-26 11:20] LABS: URINE CLARITY HAZY; URINE RBC 25-50 RBC/hpf (0-5)
[2017-09-26 11:20] LABS: HEMATOCRIT 35.2 % (37.0-47.0); HEMOGLOBIN 11.2 g/dl (12.0-16.0); IMMATURE GRANULOCYTES 0.9 % (0.0-1.0); MEAN CELL VOLUME 85.6 fL CALC (80.0-100.0); MEAN CORPUSCULAR HGB 27.3 pG CALC (26.0-32.0); MEAN CORPUSCULAR HGB CONC 31.8 g/L CALC (32.0-36.0); NEUT# 8.4 thou/uL (2.00-7.15); RED BLOOD COUNT 4.11 mill/uL (4.20-5.60); RED CELL DISTRI WIDTH 17.2 % (11.5-15.5)
[2017-09-26 11:36] LABS: ALBUMIN 4.3 g/dL (3.2-5.0); ALKALINE PHOSPHATASE 214 u/l (38-126); AMYLASE 40 u/l (30-110); ANION GAP 17 (6-22 (CALC)); BILIRUBIN, TOTAL 0.6 mg/dL (0.0-1.4); BUN 14 mg/dL (7-17); BUN/CREATININE RATIO 25 (12-20 (CALC)); CALCIUM 9.7 mg/dL (8.4-10.2); CARBON DIOXIDE 22 mmol/l (22-30); CHLORIDE 105 mmol/l (95-108); CREATININE 0.5 mg/dL (0.5-1.0); GFR > 60 ML/MIN (>=60 (CALC)); GFR FOR AFR.AMER. > 60 ML/MIN (>=60 (CALC)); GLUCOSE 413 mg/dL (65-105); LIPASE 117 u/l (23-300); POTASSIUM 4.5 mmol/l (3.5-5.1); SGOT/AST 39 u/l (14-36); SGPT/ALT 87 u/l (9-52); SODIUM 141 mmol/l (137-146); TOTAL PROTEIN 8.2 g/dL (6.3-8.2)
[2017-09-26 11:58] VITALS: BP 151/83
[2017-09-26] MEDS ORDERED: ZOFRAN ODT4 MG PO (11:58)
[2017-09-26] MEDS ORDERED: LOMOTIL2.5 MG PO (11:58)
[2017-09-26 12:01] LABS: BARBITURATES NEGATIVE (NEGATIVE); COCAINE NEGATIVE (NEGATIVE); METHADONE NEGATIVE (NEGATIVE); TETRAHYDROCANNABIONOL NEGATIVE (NEGATIVE); TRICYLIC ANTIDEPRESSANTS NEGATIVE (NEGATIVE)
[2017-09-26 12:02] LABS: OXCYCODONE POSITIVE (NEGATIVE)
== END 2017-09-26 12:11 | disposition home or self-care (01) | DRG 392 ==
LOC: ED 10:01
PROVIDERS: Emergency Medicine
DX: A08.4 Viral intestinal infection, unspecified (principal); E11.21 Type 2 diabetes mellitus with diabetic nephropathy; F17.210 Nicotine dependence, cigarettes, uncomplicated; R53.1 Weakness; R11.2 Nausea with vomiting, unspecified; Z79.2 Long term (current) use of antibiotics; Z79.4 Long term (current) use of insulin

== ENCOUNTER 2018-02-05 11:00 | Inpatient (IN) | payer OTHER ==
[~2018-02-05] VITALS: Ht 172.7 cm; Wt 82.0 kg
[~2018-02-05 11:00] MED LIST changes: +LOMOTIL2.5 MG PO; +PERCOCET 5/325M1 TAB PO; +ROCEPHIN 2 GM2 GM IV; +ZOFRAN ODT4 MG PO
[2018-02-05 12:22] LABS: HEMATOCRIT 35.6 % (37.0-47.0); HEMOGLOBIN 11.6 g/dl (12.0-16.0); IMMATURE GRANULOCYTES 0.7 % (0.0-1.0); MEAN CELL VOLUME 80.7 fL CALC (80.0-100.0); MEAN CORPUSCULAR HGB 26.3 pG CALC (26.0-32.0); MEAN CORPUSCULAR HGB CONC 32.6 g/L CALC (32.0-36.0); NEUT# 5.34 thou/uL (2.00-7.15); RED BLOOD COUNT 4.41 mill/uL (4.20-5.60)
[2018-02-05] MEDS ORDERED: LEVEMIR100 UNIT/M (12:24)
[2018-02-05] MEDS ORDERED: NOVOLOG MIX SC (12:25)
[2018-02-05 12:41] LABS: ALBUMIN 3.7 g/dL (3.2-5.0); ALKALINE PHOSPHATASE 228 u/l (38-126); ANION GAP 19 (6-22 (CALC)); BILIRUBIN, TOTAL 0.4 mg/dL (0.0-1.4); BUN 10 mg/dL (7-17); BUN/CREATININE RATIO 18 (12-20 (CALC)); CARBON DIOXIDE 22 mmol/l (22-30); CHLORIDE 99 mmol/l (95-108); CREATININE 0.5 mg/dL (0.5-1.0); GFR > 60 ML/MIN (>=60 (CALC)); GFR FOR AFR.AMER. > 60 ML/MIN (>=60 (CALC)); POTASSIUM 4.5 mmol/l (3.5-5.1); SGPT/ALT 39 u/l (9-52); SODIUM 135 mmol/l (137-146)
[2018-02-05 12:49] LABS: SGOT/AST 38 u/l (14-36)
[2018-02-05 16:40] VITALS: BP 124/71
[2018-02-05 18:01] LABS: URINE BILIRUBIN - DIPSTICK NEGATIVE (NEGATIVE); URINE BLOOD DIPSTICK LARGE (NEGATIVE); URINE COLOR YELLOW; URINE GLUCOSE - DIPSTICK >=1000 mg/dL (NEGATIVE); URINE KETONE TRACE mg/dL (NEGATIVE); URINE LEUK ESTERASE NEGATIVE (Negative); URINE NITRITE - DIPSTICK NEGATIVE (Negative); URINE PROTEIN - DIPSTICK NEGATIVE (NEG-TRACE); URINE UROBILINOGEN - DIPSTICK 0.2 E.U./dL (0.2)
[2018-02-05 18:08] LABS: URINE CLARITY HAZY
[2018-02-05 18:23] LABS: URINE RBC 0-2 RBC/hpf (0-5); URINE SQUAMOUS EPITHELIAL CELL FEW EPI/hpf (0-FEW)
[2018-02-06 00:09] VITALS: BP 129/68
[2018-02-06 05:07] LABS: HEMATOCRIT 32.4 % (37.0-47.0); HEMOGLOBIN 10.6 g/dl (12.0-16.0); MEAN CELL VOLUME 80.2 fL CALC (80.0-100.0); MEAN CORPUSCULAR HGB 26.2 pG CALC (26.0-32.0); MEAN CORPUSCULAR HGB CONC 32.7 g/L CALC (32.0-36.0); RED BLOOD COUNT 4.04 mill/uL (4.20-5.60); RED CELL DISTRI WIDTH 15.1 % (11.5-15.5)
[2018-02-06 05:13] VITALS: BP 128/84
[2018-02-06 05:14] LABS: ANION GAP 15 (6-22 (CALC)); BUN 11 mg/dL (7-17); BUN/CREATININE RATIO 20 (12-20 (CALC)); CALCULATED LDLCHOLESTEROL 56 mg/dL (62-129 (CALC)); CARBON DIOXIDE 24 mmol/l (22-30); CHLORIDE 107 mmol/l (95-108); CHOLESTEROL HDL RATIO 5.2 (<4.4 (CALC)); CREATININE 0.6 mg/dL (0.5-1.0); GFR > 60 ML/MIN (>=60 (CALC)); GFR FOR AFR.AMER. > 60 ML/MIN (>=60 (CALC)); HDL CHOLESTEROL 23 mg/dL (>=40); POTASSIUM 4.5 mmol/l (3.5-5.1); SODIUM 141 mmol/l (137-146); TOTAL CHOLESTEROL 117 mg/dl (0-199); TOTAL TRIGLYCERIDES 194 mg/dl (30-149); VLDL CHOLESTROL 39 mg/dl (1-41 (CALC))
[2018-02-06 07:34] VITALS: BP 137/78
[2018-02-06 11:10] VITALS: BP 140/89
[2018-02-06 16:10] VITALS: BP 149/82
== END 2018-02-06 17:32 | disposition left against medical advice (07) | DRG 854 ==
LOC: ED 11:00 → ED-I 13:54 → ED 15:34 → MS2 15:35
PROVIDERS: Emergency Medicine; ADMIT Internal Medicine; ATTEND Internal Medicine
PROC: 0JBR0ZZ Excision of Left Foot Subcutaneous Tissue and Fascia, Open Approach (ICD-10-PCS; principal; 2018-02-05)
DX: A48.0 Gas gangrene (principal); L02.612 Cutaneous abscess of left foot; E10.42 Type 1 diabetes mellitus with diabetic polyneuropathy; E10.52 Type 1 diabetes mellitus with diabetic peripheral angiopathy with gangrene; L03.116 Cellulitis of left lower limb; L97.429 Non-pressure chronic ulcer of left heel and midfoot with unspecified severity; E10.621 Type 1 diabetes mellitus with foot ulcer; E10.628 Type 1 diabetes mellitus with other skin complications; E10.65 Type 1 diabetes mellitus with hyperglycemia; I10 Essential (primary) hypertension; F17.210 Nicotine dependence, cigarettes, uncomplicated; G89.4 Chronic pain syndrome; F15.10 Other stimulant abuse, uncomplicated; B95.4 Other streptococcus as the cause of diseases classified elsewhere; Z79.4 Long term (current) use of insulin; Z89.421 Acquired absence of other right toe(s); Z91.14 Patient's other noncompliance with medication regimen
CPT/HCPCS: J0692

== ENCOUNTER 2018-03-26 08:38 | Emergency (ER) | payer OTHER ==
[~2018-03-26] VITALS: Ht 172.7 cm; Wt 80.0 kg
[~2018-03-26 08:38] MED LIST changes: +LEVEMIR100 UNIT/M; +NOVOLOG MIX SC
[2018-03-26] MEDS ORDERED: VALTREX1 GM PO (08:47)
[2018-03-26] MEDS ORDERED: PREDNISONE50 MG PO (08:47)
[2018-03-26 09:01] VITALS: BP 151/83
== END 2018-03-26 09:15 | disposition home or self-care (01) | DRG 74 ==
LOC: ED 08:38
DX: G51.0 Bell's palsy (principal); E11.40 Type 2 diabetes mellitus with diabetic neuropathy, unspecified; I10 Essential (primary) hypertension; F32.9 Major depressive disorder, single episode, unspecified; F17.210 Nicotine dependence, cigarettes, uncomplicated; F19.10 Other psychoactive substance abuse, uncomplicated

== ENCOUNTER 2018-05-30 12:18 | Emergency (ER) | payer OTHER ==
[~2018-05-30] VITALS: Ht 172.7 cm; Wt 90.0 kg
[~2018-05-30 12:18] MED LIST changes: +PREDNISONE50 MG PO; +VALTREX1 GM PO
[2018-05-30 13:17] LABS: IMMATURE GRANULOCYTES 0.6 % (0.0-1.0); MEAN CORPUSCULAR HGB 26.7 pG CALC (26.0-32.0); MEAN CORPUSCULAR HGB CONC 33.3 g/L CALC (32.0-36.0); NEUT# 7.29 thou/uL (2.00-7.15); RED BLOOD COUNT 4.5 mill/uL (4.20-5.60); RED CELL DISTRI WIDTH 13.4 % (11.5-15.5)
[2018-05-30 13:32] LABS: ALBUMIN 4.1 g/dL (3.2-5.0); ALKALINE PHOSPHATASE 249 u/l (38-126); ANION GAP 17 (6-22 (CALC)); BILIRUBIN, TOTAL 0.3 mg/dL (0.0-1.4); BUN 13 mg/dL (7-17); BUN/CREATININE RATIO 29 (12-20 (CALC)); C-REACTIVE PROTEIN 3.9 mg/dL (0-0.9); CARBON DIOXIDE 21 mmol/l (22-30); CHLORIDE 103 mmol/l (95-108); CREATININE 0.4 mg/dL (0.5-1.0); GFR > 60 ML/MIN (>=60 (CALC)); GFR FOR AFR.AMER. > 60 ML/MIN (>=60 (CALC)); POTASSIUM 4.2 mmol/l (3.5-5.1); SGOT/AST 19 u/l (14-36); SGPT/ALT 42 u/l (9-52); SODIUM 137 mmol/l (137-146); TOTAL PROTEIN 8.3 g/dL (6.3-8.2)
[2018-05-30 17:10] VITALS: BP 164/94
--- NOTE | 2018-06-04 07:48 | NUR ---
Final blood culture results called into [facility] at [facility] and faxed to [phone]
== END 2018-05-30 17:10 | disposition short-term general hospital (02) ==
LOC: ED 12:18
PROVIDERS: Family Medicine
DX: E11.621 Type 2 diabetes mellitus with foot ulcer (principal); L97.519 Non-pressure chronic ulcer of other part of right foot with unspecified severity; E11.65 Type 2 diabetes mellitus with hyperglycemia; E11.40 Type 2 diabetes mellitus with diabetic neuropathy, unspecified; F17.210 Nicotine dependence, cigarettes, uncomplicated; I10 Essential (primary) hypertension; F32.9 Major depressive disorder, single episode, unspecified; B95.1 Streptococcus, group B, as the cause of diseases classified elsewhere; Z89.421 Acquired absence of other right toe(s)

== ENCOUNTER 2018-09-08 15:10 | Emergency (ER) | payer SELFPAY ==
[~2018-09-08] VITALS: Ht 172.7 cm; Wt 79.5 kg
[2018-09-08 16:38] LABS: HEMATOCRIT 33.1 % (37.0-47.0); HEMOGLOBIN 10.5 g/dl (12.0-16.0); IMMATURE GRANULOCYTES 0.2 % (0.0-5.0); MEAN CELL VOLUME 77.9 fL CALC (80.0-100.0); MEAN CORPUSCULAR HGB 24.7 pG CALC (26.0-32.0); MEAN CORPUSCULAR HGB CONC 31.7 g/L CALC (32.0-36.0); NEUT# 4.47 thou/uL (2.00-7.15); RED BLOOD COUNT 4.25 mill/uL (4.20-5.60); RED CELL DISTRI WIDTH 14.9 % (11.5-15.5)
[2018-09-08 16:55] LABS: ALBUMIN 3.8 g/dL (3.2-5.0); ALKALINE PHOSPHATASE 176 u/l (38-126); ANION GAP 15 (6-22 (CALC)); BILIRUBIN, TOTAL 0.4 mg/dL (0.0-1.4); BUN 15 mg/dL (7-17); BUN/CREATININE RATIO 35 (12-20 (CALC)); CARBON DIOXIDE 21 mmol/l (22-30); CHLORIDE 108 mmol/l (95-108); CREATININE 0.4 mg/dL (0.5-1.0); GFR > 60 ML/MIN (>=60 (CALC)); GFR FOR AFR.AMER. > 60 ML/MIN (>=60 (CALC)); POTASSIUM 4.1 mmol/l (3.5-5.1); SGOT/AST 19 u/l (14-36); SODIUM 139 mmol/l (137-146); TOTAL PROTEIN 7.4 g/dL (6.3-8.2)
[2018-09-08] MEDS ORDERED: ULTRAM50 M1 PO (17:35)
[2018-09-08] MEDS ORDERED: TORADOL PO (17:35)
[2018-09-08] MEDS ORDERED: CIPROFLOXACN500 MG PO (17:35)
[2018-09-08] MEDS ORDERED: BACTRIM DS1 TAB PO (17:35)
[2018-09-08 17:45] VITALS: BP 152/77
== END 2018-09-08 17:45 | disposition home or self-care (01) | DRG 639 ==
LOC: ED 15:10
PROVIDERS: Emergency Medicine
DX: E11.621 Type 2 diabetes mellitus with foot ulcer (principal); E11.65 Type 2 diabetes mellitus with hyperglycemia; E11.40 Type 2 diabetes mellitus with diabetic neuropathy, unspecified; Z89.421 Acquired absence of other right toe(s); F17.210 Nicotine dependence, cigarettes, uncomplicated; Z91.14 Patient's other noncompliance with medication regimen; B95.61 Methicillin susceptible Staphylococcus aureus infection as the cause of diseases classified elsewhere

== ENCOUNTER 2018-09-22 15:01 | Emergency (ER) | payer SELFPAY ==
[~2018-09-22] VITALS: Ht 172.7 cm; Wt 90.1 kg
[~2018-09-22 15:01] MED LIST changes: +TORADOL PO
[2018-09-22] MEDS ORDERED: TRAMADOL HYDROC50 MG PO (15:19)
[2018-09-22 15:45] VITALS: BP 140/89
== END 2018-09-22 16:44 | disposition home or self-care (01) | DRG 74 ==
LOC: ED 15:01
DX: E11.42 Type 2 diabetes mellitus with diabetic polyneuropathy (principal); E11.621 Type 2 diabetes mellitus with foot ulcer; L97.429 Non-pressure chronic ulcer of left heel and midfoot with unspecified severity; I10 Essential (primary) hypertension; F17.210 Nicotine dependence, cigarettes, uncomplicated; Z89.411 Acquired absence of right great toe; Z89.421 Acquired absence of other right toe(s)

== ENCOUNTER 2018-12-12 14:41 | Inpatient (IN) | payer SELFPAY ==
[~2018-12-12] VITALS: Ht 172.7 cm; Wt 106.0 kg
[~2018-12-12 14:41] MED LIST changes: +TRAMADOL HYDROC50 MG PO
[2018-12-12 15:46] LABS: HEMATOCRIT 35.5 % (37.0-47.0); HEMOGLOBIN 11.7 g/dl (12.0-16.0); MEAN CELL VOLUME 79.4 fL CALC (80.0-100.0); MEAN CORPUSCULAR HGB 26.2 pG CALC (26.0-32.0); NEUT# 18.28 thou/uL (2.00-7.15); RED BLOOD COUNT 4.47 mill/uL (4.20-5.60)
[2018-12-12 15:56] LABS: ALKALINE PHOSPHATASE 131 u/l (38-126); ANION GAP 17 (6-22 (CALC)); BILIRUBIN, TOTAL 0.7 mg/dL (0.0-1.4); BUN 22 mg/dL (7-17); BUN/CREATININE RATIO 23 (12-20 (CALC)); CARBON DIOXIDE 19 mmol/l (22-30); CHLORIDE 102 mmol/l (95-108); GFR > 60 ML/MIN (>=60 (CALC)); GFR FOR AFR.AMER. > 60 ML/MIN (>=60 (CALC)); POTASSIUM 4.4 mmol/l (3.5-5.1); SGOT/AST 33 u/l (14-36); SODIUM 133 mmol/l (137-146); TOTAL PROTEIN 7.5 g/dL (6.3-8.2)
[2018-12-12 18:24] LABS: URINE BILIRUBIN - DIPSTICK NEGATIVE (NEGATIVE); URINE BLOOD DIPSTICK NEGATIVE (NEGATIVE); URINE GLUCOSE - DIPSTICK >=1000 mg/dL (NEGATIVE); URINE KETONE NEGATIVE (NEGATIVE); URINE LEUK ESTERASE NEGATIVE (NEGATIVE); URINE NITRITE - DIPSTICK NEGATIVE (Negative); URINE PROTEIN - DIPSTICK NEGATIVE (NEG-TRACE); URINE SPECIFIC GRAVITY 1.025; URINE UROBILINOGEN - DIPSTICK 0.2 E.U./dL (0.2)
[2018-12-12 18:25] LABS: URINE COLOR DK. YELLOW
[2018-12-12 18:28] LABS: BARBITURATES NEGATIVE (NEGATIVE); COCAINE NEGATIVE (NEGATIVE); METHADONE NEGATIVE (NEGATIVE); OXCYCODONE NEGATIVE (NEGATIVE); TETRAHYDROCANNABIONOL NEGATIVE (NEGATIVE); TRICYLIC ANTIDEPRESSANTS POSITIVE (NEGATIVE)
[2018-12-12] MEDS ORDERED: GABAPENTIN100 MG PO (19:30)
[2018-12-12] MEDS ORDERED: AMITRIPTYLIN50 MG PO (19:32)
[2018-12-12] MEDS ORDERED: DICLOFENAC SODI50 M1 PO (19:32)
[2018-12-12 20:05] VITALS: BP 110/54
[2018-12-12 22:15] VITALS: BP 103/54
[2018-12-13] VITALS (13 sets, daily range): BP systolic 94–180; BP diastolic 56–93
[2018-12-13 23:04] LABS: INTERNATIONAL NORMALIZED RATIO 1.3 RATIO (0.7-1.3); PROTHROMBIN TIME 13.1 SECONDS (9.0-12.5)
[2018-12-14] VITALS (10 sets, daily range): BP systolic 100–161; BP diastolic 57–83
[2018-12-14 04:18] LABS: HEMATOCRIT 30.4 % (37.0-47.0); IMMATURE GRANULOCYTES 0.6 % (0.0-5.0); MEAN CELL VOLUME 81.9 fL CALC (80.0-100.0); MEAN CORPUSCULAR HGB 26.1 pG CALC (26.0-32.0); MEAN CORPUSCULAR HGB CONC 31.9 g/L CALC (32.0-36.0); NEUT# 6.07 thou/uL (2.00-7.15); RED BLOOD COUNT 3.71 mill/uL (4.20-5.60); RED CELL DISTRI WIDTH 17.6 % (11.5-15.5)
[2018-12-14 04:40] LABS: ALKALINE PHOSPHATASE 128 u/l (38-126); AMYLASE < 30 u/l (30-110); ANION GAP 11 (6-22 (CALC)); BILIRUBIN, TOTAL 1.1 mg/dL (0.0-1.4); BUN 11 mg/dL (7-17); BUN/CREATININE RATIO 19 (12-20 (CALC)); CARBON DIOXIDE 21 mmol/l (22-30); CHLORIDE 111 mmol/l (95-108); CREATININE 0.6 mg/dL (0.5-1.0); GFR > 60 ML/MIN (>=60 (CALC)); GFR FOR AFR.AMER. > 60 ML/MIN (>=60 (CALC)); LIPASE 19 u/l (23-300); MAGNESIUM 1.9 mg/dL (1.6-2.3); POTASSIUM 4.1 mmol/l (3.5-5.1); SODIUM 139 mmol/l (137-146)
[2018-12-14 04:55] LABS: HEMOGLOBIN 9.7 g/dl (12.0-16.0)
[2018-12-14 04:58] LABS: ALBUMIN 2.9 g/dL (3.2-5.0); SGOT/AST 87 u/l (14-36); TOTAL PROTEIN 5.9 g/dL (6.3-8.2)
[2018-12-15 03:56] VITALS: BP 143/85
[2018-12-15 07:46] VITALS: BP 150/92
[2018-12-15 15:25] VITALS: BP 182/100
[2018-12-15 17:17] VITALS: BP 166/90
[2018-12-15 18:47] VITALS: BP 180/95
[2018-12-15 21:45] VITALS: BP 158/85
[2018-12-16 03:58] VITALS: BP 124/75
[2018-12-16 06:23] LABS: HEMATOCRIT 26.5 % (37.0-47.0); HEMOGLOBIN 8.8 g/dl (12.0-16.0); IMMATURE GRANULOCYTES 2.1 % (0.0-5.0); MEAN CELL VOLUME 79.1 fL CALC (80.0-100.0); MEAN CORPUSCULAR HGB 26.3 pG CALC (26.0-32.0); MEAN CORPUSCULAR HGB CONC 33.2 g/L CALC (32.0-36.0); NEUT# 12.6 thou/uL (2.00-7.15); RED BLOOD COUNT 3.35 mill/uL (4.20-5.60); RED CELL DISTRI WIDTH 18.1 % (11.5-15.5)
[2018-12-16 08:21] VITALS: BP 131/79
[2018-12-16 09:22] LABS: ALBUMIN 3.4 g/dL (3.2-5.0); ANION GAP 13 (6-22 (CALC)); BILIRUBIN, TOTAL 0.9 mg/dL (0.0-1.4); BUN 13 mg/dL (7-17); BUN/CREATININE RATIO 25 (12-20 (CALC)); CALCULATED LDLCHOLESTEROL 104 mg/dL (62-129 (CALC)); CARBON DIOXIDE 21 mmol/l (22-30); CHLORIDE 110 mmol/l (95-108); CREATININE 0.5 mg/dL (0.5-1.0); GFR > 60 ML/MIN (>=60 (CALC)); GFR FOR AFR.AMER. > 60 ML/MIN (>=60 (CALC)); HDL CHOLESTEROL 20 mg/dL (>=40); POTASSIUM 3.8 mmol/l (3.5-5.1); SGOT/AST 62 u/l (14-36); SODIUM 140 mmol/l (137-146); TOTAL PROTEIN 6.9 g/dL (6.3-8.2); TOTAL TRIGLYCERIDES 272 mg/dl (30-149); VLDL CHOLESTROL 54 mg/dl (1-41 (CALC))
[2018-12-16 09:47] LABS: ALKALINE PHOSPHATASE 273 u/l (38-126); CHOLESTEROL HDL RATIO 8.9 (<4.4 (CALC)); TOTAL CHOLESTEROL 178 mg/dl (0-199)
[2018-12-16 15:37] VITALS: BP 188/97
[2018-12-16 18:12] VITALS: BP 172/82
[2018-12-16 20:08] VITALS: BP 179/88
[2018-12-16 23:22] VITALS: BP 159/82
[2018-12-17 03:08] VITALS: BP 156/86
[2018-12-17 06:30] LABS: HEMATOCRIT 29.3 % (37.0-47.0); HEMOGLOBIN 9.3 g/dl (12.0-16.0); IMMATURE GRANULOCYTES 5.5 % (0.0-5.0); MEAN CELL VOLUME 81.4 fL CALC (80.0-100.0); MEAN CORPUSCULAR HGB 25.8 pG CALC (26.0-32.0); MEAN CORPUSCULAR HGB CONC 31.7 g/L CALC (32.0-36.0); PLATELET COUNT 194 thou/uL (130-400); RED CELL DISTRI WIDTH 18.7 % (11.5-15.5)
[2018-12-17 06:43] LABS: BUN 15 mg/dL (7-17); BUN/CREATININE RATIO 33 (12-20 (CALC)); CARBON DIOXIDE 22 mmol/l (22-30); CHLORIDE 108 mmol/l (95-108); CREATININE 0.4 mg/dL (0.5-1.0); GFR > 60 ML/MIN (>=60 (CALC)); GFR FOR AFR.AMER. > 60 ML/MIN (>=60 (CALC)); MAGNESIUM 2.1 mg/dL (1.6-2.3); SODIUM 140 mmol/l (137-146)
[2018-12-17 06:45] LABS: ANION GAP 15 (6-22 (CALC)); POTASSIUM 4.7 mmol/l (3.5-5.1)
[2018-12-17 06:50] LABS: MANUAL DIFFERENTIAL YES
[2018-12-17 08:06] VITALS: BP 168/89
[2018-12-17] MEDS ORDERED: DOXYCYCL HYC100 MG PO (14:59)
[2018-12-17] MEDS ORDERED: COZAAR25 MG PO (15:01)
[2018-12-17 16:21] VITALS: BP 196/110
[2018-12-17 18:56] VITALS: BP 171/89
== END 2018-12-17 19:00 | disposition home or self-care (01) | DRG 194 ==
LOC: ED 14:41 → ED-I 17:40 → ED 18:29 → MS2 18:30 → ICU 12-13 21:36 → MS2 12-14 12:21
PROVIDERS: Emergency Medicine; Internal Medicine Nephrology; Nurse Practitioner Family; ADMIT Internal Medicine; ATTEND Internal Medicine
DX: J18.9 Pneumonia, unspecified organism (principal); J44.0 Chronic obstructive pulmonary disease with (acute) lower respiratory infection; J44.1 Chronic obstructive pulmonary disease with (acute) exacerbation; L97.428 Non-pressure chronic ulcer of left heel and midfoot with other specified severity; E11.621 Type 2 diabetes mellitus with foot ulcer; L08.9 Local infection of the skin and subcutaneous tissue, unspecified; E11.319 Type 2 diabetes mellitus with unspecified diabetic retinopathy without macular edema; E11.40 Type 2 diabetes mellitus with diabetic neuropathy, unspecified; E11.51 Type 2 diabetes mellitus with diabetic peripheral angiopathy without gangrene; E11.65 Type 2 diabetes mellitus with hyperglycemia; I10 Essential (primary) hypertension; F17.210 Nicotine dependence, cigarettes, uncomplicated; F31.9 Bipolar disorder, unspecified; E78.5 Hyperlipidemia, unspecified; G89.4 Chronic pain syndrome; R74.0 Nonspecific elevation of levels of transaminase and lactic acid dehydrogenase [LDH]; Z89.431 Acquired absence of right foot; Z91.14 Patient's other noncompliance with medication regimen; Z91.11 Patient's noncompliance with dietary regimen; Z79.4 Long term (current) use of insulin
CPT/HCPCS: J1650; J2060; J3370; Q9967

== ENCOUNTER 2019-01-01 10:26 | Outpatient (RCR) | payer SELFPAY ==
[~2019-01-01 10:26] MED LIST changes: +AMITRIPTYLIN50 MG PO; +COZAAR25 MG PO; +DICLOFENAC SODI50 M1 PO; +DOXYCYCL HYC100 MG PO; +GABAPENTIN100 MG PO
== END 2019-01-01 12:35 | disposition home or self-care (01) | DRG 639 ==
LOC: OPWC 10:26
PROVIDERS: ATTEND Surgery
DX: E11.622 Type 2 diabetes mellitus with other skin ulcer (principal); L97.522 Non-pressure chronic ulcer of other part of left foot with fat layer exposed; L97.512 Non-pressure chronic ulcer of other part of right foot with fat layer exposed; L97.501 Non-pressure chronic ulcer of other part of unspecified foot limited to breakdown of skin; S90.822A Blister (nonthermal), left foot, initial encounter; E11.42 Type 2 diabetes mellitus with diabetic polyneuropathy; E11.65 Type 2 diabetes mellitus with hyperglycemia; R50.81 Fever presenting with conditions classified elsewhere; E86.0 Dehydration; R60.0 Localized edema
CPT/HCPCS: A6021; A6209; A6210; L3260

== ENCOUNTER 2019-01-28 11:38 | Observation (INO) | payer SELFPAY ==
[~2019-01-28] VITALS: Ht 172.7 cm; Wt 103.0 kg
--- NOTE | 2019-01-28 11:52 | NUR ---
PT TO ROOM WITH STEADY GAIT
--- NOTE | 2019-01-28 12:43 | NUR ---
PT ADVISED OF WAIT TIME.
[2019-01-28 13:06] LABS: IMMATURE GRANULOCYTES 0.8 % (0.0-5.0); MEAN CELL VOLUME 80.6 fL CALC (80.0-100.0); MEAN CORPUSCULAR HGB 25.8 pG CALC (26.0-32.0); NEUT# 4.76 thou/uL (2.00-7.15); RED BLOOD COUNT 4.65 mill/uL (4.20-5.60); RED CELL DISTRI WIDTH 15.5 % (11.5-15.5)
[2019-01-28 13:22] LABS: ANION GAP 17 (6-22 (CALC)); BUN 20 mg/dL (7-17); BUN/CREATININE RATIO 33 (12-20 (CALC)); CARBON DIOXIDE 24 mmol/l (22-30); CHLORIDE 98 mmol/l (95-108); CREATININE 0.6 mg/dL (0.5-1.0); GFR > 60 ML/MIN (>=60 (CALC)); GFR FOR AFR.AMER. > 60 ML/MIN (>=60 (CALC)); HEMATOCRIT 37.5 % (37.0-47.0); POTASSIUM 5.1 mmol/l (3.5-5.1); SODIUM 134 mmol/l (137-146)
--- NOTE | 2019-01-28 14:00 | NUR ---
IV ABT INFUSING. PT AWARE OF PENDING ADMIT. NO APPARENT DISTRESS.
--- NOTE | 2019-01-28 15:02 | NUR ---
REPORT CALLED TO SURENDRA GAY. ADVISED OF ALL MEDS, IV AND POC.
--- NOTE | 2019-01-28 15:09 | NUR ---
PT TO ROOM 6 ICU VIA STRETCHER IN NO APPARENT DISTRESS. REDNESS TO LT 5TH TOE. IV SITE HEALTHY. RFA.
[2019-01-28 15:15] VITALS: BP 131/77
--- NOTE | 2019-01-28 15:15 | NUR ---
PT ADMITTED TO ICU BED 5 MS OVERFLOW (NON-TELEMTRY), PT ALERT AND ORIENTED STANDS OFF STRETCHER AND TRANSFERS SELF TO BED, ADMISSION ASSESSMENT COMPLETED SEE INTERVENTIONS, 20G IV ACCESS IN RAC WITH LR AT PRESCRIBED RATE. LUNGS CLEAR NO SOB OR DISTRESS, ABD SOFT AND BS ACTOVE SKIN WARM DRY AND ITACT EXCEPT LEFT PINKY TO WHICH IS RED AND SWOLLEN WITH WHITE TISSUE NOTED AROUND NAIL BED, PT STATES SHE "CUT IT TO SHORT ON MONDAY CAUSE I DIDN'T HAVE MY GLASSES ON AND IT STARTED THEN GETTING WORSE TIL SHE CAM INTO TODAY" PPPB AND STRONG, BEFORE RETAIL OPERATIONS MANAGER COMPLETED ADMISSION AND EXAM PT ASKING ABOUT IF THE DOCTOR ORDERED ANY PAIN MEDICATION, PT REMINDED THAT SHE HAD MORPHINE IV IN THE EMERGENCY ROOM AT 1435, AND THAT RETAIL OPERATIONS MANAGER WILL CHECK HER ORDERS WHEN ASSESSMENT COMPLETED, ORIENTED TO ROON AND UNIT, CALL BENOIT WITHIN REACH, SNACK PROVIDED OF SUGAR FREEE PUDDING AND DIET SODA, SAFETY MEASURES INTRODUCED, WILL CONTINUE TO MONITOR.
--- NOTE | 2019-01-28 16:03 | NUR ---
S: MARQUITACELINE is a 43 F who presents with left foot cellulitis. She has a history of Diabetes, HTN, Depression, Diabetes neuropathy, substance abuse, anemia, and bipolar. All medications in patient's chart were reviewed. O: VS: TQ=898/87 mmHg, P=105 beat/min, RR=18 beats/min, T=97.9F W=97.7 kg, HT=68 inches, Scr=0.6 mg/dL ,CrCl=71 ml/min A: Blood culture collected 01/28/19 is pending. P: Patient is on Vancomycin. Vancomycin ordered for pharmacy to dose. Start Vancomycin 1.5gm IV Q8H. Vancomycin trough is drawn before the 4th dose on 01/29/19 at 21:30. Vancomycin goal trough is between 10-15 mcg/ml. Pharmacy will follow and or advise on antibiotics use as needed.
--- NOTE | 2019-01-28 16:25 | NUR ---
AWARE OF PT COMPLAINT OF PAIN, NEW ORDERS REC'D WILL MEDICATE WHEN PROFILED. PT NOTIFIED WELL
--- NOTE | 2019-01-28 17:10 | NUR ---
VISITOR AT BEDSIDE, PT AGAIN ASKING FOR PAIN MEDICATION
--- NOTE | 2019-01-28 17:36 | NUR ---
PT MEDICATED FOR COMPLAINTS OF PAIN, SET UP ASSISTPROVIDED FOR PM MEAL, VISITOR AT BEDSIDE
[2019-01-28 18:14] LABS: URINE BILIRUBIN - DIPSTICK NEGATIVE (NEGATIVE); URINE BLOOD DIPSTICK NEGATIVE (NEGATIVE); URINE COLOR YELLOW; URINE GLUCOSE - DIPSTICK >=1000 mg/dL (NEGATIVE); URINE KETONE NEGATIVE (NEGATIVE); URINE LEUK ESTERASE NEGATIVE (Negative); URINE NITRITE - DIPSTICK NEGATIVE (Negative); URINE PH 5.5 (4.5-8.0); URINE PROTEIN - DIPSTICK NEGATIVE (NEG-TRACE); URINE SPECIFIC GRAVITY 1.015; URINE UROBILINOGEN - DIPSTICK 0.2 E.U./dL (0.2)
[2019-01-28 18:15] LABS: URINE CLARITY CLEAR
[2019-01-28 19:30] VITALS: BP 128/77
--- NOTE | 2019-01-28 19:30 | NUR ---
awake. no acute distress. #20 rfa rl infusing @ 20cchr. po fluids taken well. voids per bsc. fall precautions cont.
--- NOTE | 2019-01-29 05:15 | NUR ---
lab here. blood drawn.
[2019-01-29 05:54] LABS: HEMATOCRIT 36.3 % (37.0-47.0); HEMOGLOBIN 11.4 g/dl (12.0-16.0); IMMATURE GRANULOCYTES 0.6 % (0.0-5.0); MEAN CELL VOLUME 81.6 fL CALC (80.0-100.0); MEAN CORPUSCULAR HGB 25.6 pG CALC (26.0-32.0); MEAN CORPUSCULAR HGB CONC 31.4 g/L CALC (32.0-36.0); NEUT# 3.37 thou/uL (2.00-7.15); RED BLOOD COUNT 4.45 mill/uL (4.20-5.60); RED CELL DISTRI WIDTH 15.3 % (11.5-15.5)
[2019-01-29 06:01] LABS: ALBUMIN 3.6 g/dL (3.2-5.0); AMYLASE 35 u/l (30-110); ANION GAP 11 (6-22 (CALC)); BILIRUBIN, TOTAL 0.4 mg/dL (0.0-1.4); BUN 14 mg/dL (7-17); BUN/CREATININE RATIO 29 (12-20 (CALC)); CARBON DIOXIDE 26 mmol/l (22-30); CHLORIDE 106 mmol/l (95-108); CREATININE 0.5 mg/dL (0.5-1.0); GFR > 60 ML/MIN (>=60 (CALC)); GFR FOR AFR.AMER. > 60 ML/MIN (>=60 (CALC)); LIPASE 61 u/l (23-300); MAGNESIUM 1.7 mg/dL (1.6-2.3); POTASSIUM 4.4 mmol/l (3.5-5.1); SGOT/AST 37 u/l (14-36); SODIUM 139 mmol/l (137-146); TOTAL PROTEIN 6.8 g/dL (6.3-8.2)
[2019-01-29 06:06] LABS: ALKALINE PHOSPHATASE 114 u/l (38-126)
[2019-01-29 07:00] VITALS: BP 119/75
--- NOTE | 2019-01-29 08:00 | NUR ---
AM ASSESSMENT COMPLETED SEE INTERVENTIONS, COMPLAINS OF PAIN WILL MEDICATE ORDERED, VOIDS ON BSC WITHOUT INCIDENT, IVF INFUSING ORDERED AT KVO RATE. IV SITE BENIGN, WITH GODD ASPIRATE NOTED. LEFT PINKY TOE REDDENED BUT IMPROVED OVER YESTERDAY, WILL CONTINUE TO MONITOR, CALL BENOIT WITHIN REACH
[2019-01-29] MEDS ORDERED: TRAMADOL HCL50 MG PO (09:56)
[2019-01-29] MEDS ORDERED: KEFLEX500 M1 PO (09:56)
--- NOTE | 2019-01-29 10:00 | NUR ---
INTO SEE PATIENT PLAN OF CARE DISCUSSED INCLUDING D/C HOME ON ABT AND FOLLOW UP WITH MEETING FACILITATOR UVALDO.
--- NOTE | 2019-01-29 10:48 | NUR ---
Discharge instructions given. Patient verbalizes understanding of same. Discharged in stable condition via Wheelchair to Home with family. All belongings sent with pt. SCIRPTS FOR ABT AND ULTRAM SENT WITH PATIENT.
== END 2019-01-29 10:48 | disposition home or self-care (01) | DRG 603 ==
LOC: ED 11:38 → ED-I 13:25 → ED 13:36 → ICU 13:37
PROVIDERS: Family Medicine; ADMIT Internal Medicine Nephrology; ATTEND Internal Medicine Nephrology
DX: L03.032 Cellulitis of left toe (principal); L97.429 Non-pressure chronic ulcer of left heel and midfoot with unspecified severity; E11.42 Type 2 diabetes mellitus with diabetic polyneuropathy; E11.51 Type 2 diabetes mellitus with diabetic peripheral angiopathy without gangrene; E11.319 Type 2 diabetes mellitus with unspecified diabetic retinopathy without macular edema; E11.621 Type 2 diabetes mellitus with foot ulcer; E11.65 Type 2 diabetes mellitus with hyperglycemia; I10 Essential (primary) hypertension; J44.9 Chronic obstructive pulmonary disease, unspecified; G89.4 Chronic pain syndrome; F31.9 Bipolar disorder, unspecified; F17.200 Nicotine dependence, unspecified, uncomplicated; Z79.4 Long term (current) use of insulin; Z89.431 Acquired absence of right foot
CPT/HCPCS: J3370

== ENCOUNTER 2019-02-11 18:01 | Emergency (ER) | payer SELFPAY ==
[~2019-02-11] VITALS: Ht 172.7 cm; Wt 104.0 kg
[2019-02-11 19:52] LABS: HEMATOCRIT 36.4 % (37.0-47.0); HEMOGLOBIN 11.9 g/dl (12.0-16.0); IMMATURE GRANULOCYTES 0.6 % (0.0-5.0); MEAN CELL VOLUME 78.4 fL CALC (80.0-100.0); MEAN CORPUSCULAR HGB 25.6 pG CALC (26.0-32.0); MEAN CORPUSCULAR HGB CONC 32.7 g/L CALC (32.0-36.0); NEUT# 6.19 thou/uL (2.00-7.15); RED BLOOD COUNT 4.64 mill/uL (4.20-5.60); RED CELL DISTRI WIDTH 15.5 % (11.5-15.5)
[2019-02-11 20:06] LABS: ALBUMIN 4.1 g/dL (3.2-5.0); ALKALINE PHOSPHATASE 144 u/l (38-126); ANION GAP 14 (6-22 (CALC)); BILIRUBIN, TOTAL 0.2 mg/dL (0.0-1.4); BUN 15 mg/dL (7-17); BUN/CREATININE RATIO 27 (12-20 (CALC)); CARBON DIOXIDE 23 mmol/l (22-30); CHLORIDE 103 mmol/l (95-108); CREATININE 0.5 mg/dL (0.5-1.0); GFR > 60 ML/MIN (>=60 (CALC)); GFR FOR AFR.AMER. > 60 ML/MIN (>=60 (CALC)); POTASSIUM 4.5 mmol/l (3.5-5.1); SGOT/AST 26 u/l (14-36); SODIUM 136 mmol/l (137-146); TOTAL PROTEIN 7.7 g/dL (6.3-8.2)
[2019-02-11] MEDS ORDERED: AUGMENTIN875TAB PO (21:03)
[2019-02-11 21:18] VITALS: BP 143/85
== END 2019-02-11 21:18 | disposition home or self-care (01) | DRG 607 ==
LOC: ED 18:01
PROVIDERS: Emergency Medicine
DX: L84 Corns and callosities (principal); M79.672 Pain in left foot; R50.9 Fever, unspecified; E11.40 Type 2 diabetes mellitus with diabetic neuropathy, unspecified; Z79.4 Long term (current) use of insulin; F17.210 Nicotine dependence, cigarettes, uncomplicated; Z89.411 Acquired absence of right great toe

== ENCOUNTER 2019-02-25 10:20 | Emergency (ER) | payer SELFPAY ==
[~2019-02-25] VITALS: Ht 172.7 cm; Wt 90.0 kg
[2019-02-25] MEDS ORDERED: CYMBALTA30 MG PO (12:03)
[2019-02-25] MEDS ORDERED: CLEOCIN300 MG PO (12:44)
[2019-02-25] MEDS ORDERED: ULTRAM50 M1 PO (12:51)
[2019-02-25 13:30] VITALS: BP 148/78
== END 2019-02-25 13:30 | disposition home or self-care (01) | DRG 639 ==
LOC: ED 10:20
DX: E11.621 Type 2 diabetes mellitus with foot ulcer (principal); L97.519 Non-pressure chronic ulcer of other part of right foot with unspecified severity; S91.311A Laceration without foreign body, right foot, initial encounter; L97.529 Non-pressure chronic ulcer of other part of left foot with unspecified severity; E11.40 Type 2 diabetes mellitus with diabetic neuropathy, unspecified; I10 Essential (primary) hypertension; F17.210 Nicotine dependence, cigarettes, uncomplicated; X58.XXXA Exposure to other specified factors, initial encounter; Z89.421 Acquired absence of other right toe(s); Z89.411 Acquired absence of right great toe

== ENCOUNTER 2019-03-31 10:30 | Emergency (ER) | payer SELFPAY ==
[~2019-03-31] VITALS: Ht 172.7 cm; Wt 80.0 kg
[~2019-03-31 10:30] MED LIST changes: +CLEOCIN300 MG PO; +CYMBALTA30 MG PO
[2019-03-31 11:10] VITALS: BP 132/67
== END 2019-03-31 11:13 | disposition home or self-care (01) | DRG 605 ==
LOC: ED 10:30
DX: S80.811A Abrasion, right lower leg, initial encounter (principal); X58.XXXA Exposure to other specified factors, initial encounter; Y92.009 Unspecified place in unspecified non-institutional (private) residence as the place of occurrence of the external cause

== ENCOUNTER 2019-04-06 16:40 | Emergency (ER) | payer SELFPAY ==
[~2019-04-06] VITALS: Ht 172.7 cm; Wt 104.0 kg
[2019-04-06] MEDS ORDERED: ULTRAM50 M1 PO (17:17)
[2019-04-06 17:27] VITALS: BP 140/60
== END 2019-04-06 17:38 | disposition home or self-care (01) | DRG 639 ==
LOC: ED 16:40
DX: E11.621 Type 2 diabetes mellitus with foot ulcer (principal); Z76.0 Encounter for issue of repeat prescription; Z79.4 Long term (current) use of insulin; F17.210 Nicotine dependence, cigarettes, uncomplicated; Z89.411 Acquired absence of right great toe

== ENCOUNTER 2019-04-10 13:34 | Emergency (ER) | payer SELFPAY ==
[~2019-04-10] VITALS: Ht 172.7 cm; Wt 100.0 kg
[2019-04-10] MEDS ORDERED: NEURONTIN300 MG PO (15:30)
[2019-04-10 15:39] LABS: IMMATURE GRANULOCYTES 0.8 % (0.0-5.0); MEAN CELL VOLUME 80.4 fL CALC (80.0-100.0); MEAN CORPUSCULAR HGB 26.1 pG CALC (26.0-32.0); MEAN CORPUSCULAR HGB CONC 32.4 g/L CALC (32.0-36.0); NEUT# 6.01 thou/uL (2.00-7.15); RED BLOOD COUNT 4.6 mill/uL (4.20-5.60); RED CELL DISTRI WIDTH 15.9 % (11.5-15.5)
[2019-04-10 16:00] VITALS: BP 141/74
== END 2019-04-10 16:00 | disposition home or self-care (01) | DRG 639 ==
LOC: ED 13:34
PROVIDERS: Emergency Medicine
DX: E11.621 Type 2 diabetes mellitus with foot ulcer (principal); L97.519 Non-pressure chronic ulcer of other part of right foot with unspecified severity; E11.40 Type 2 diabetes mellitus with diabetic neuropathy, unspecified; F17.200 Nicotine dependence, unspecified, uncomplicated; Z89.431 Acquired absence of right foot

== ENCOUNTER 2019-06-03 18:45 | Emergency (ER) | payer SELFPAY ==
[~2019-06-03] VITALS: Ht 172.7 cm; Wt 90.0 kg
[~2019-06-03 18:45] MED LIST changes: +NEURONTIN300 MG PO
[2019-06-03] MEDS ORDERED: BACTRIM DS1 TAB PO (19:39)
[2019-06-03] MEDS ORDERED: KEFLEX500 M1 PO (19:39)
[2019-06-03 19:45] VITALS: BP 151/90
== END 2019-06-03 19:50 | disposition home or self-care (01) | DRG 603 ==
LOC: ED 18:45
DX: L03.032 Cellulitis of left toe (principal); S90.425A Blister (nonthermal), left lesser toe(s), initial encounter; I10 Essential (primary) hypertension; E11.40 Type 2 diabetes mellitus with diabetic neuropathy, unspecified; F17.210 Nicotine dependence, cigarettes, uncomplicated; X58.XXXA Exposure to other specified factors, initial encounter; Z79.4 Long term (current) use of insulin; Z89.411 Acquired absence of right great toe; Z89.421 Acquired absence of other right toe(s)

== ENCOUNTER 2019-08-16 16:34 | Emergency (ER) | payer SELFPAY ==
[~2019-08-16] VITALS: Ht 172.7 cm; Wt 99.0 kg
[2019-08-16 17:11] LABS: URINE BILIRUBIN - DIPSTICK NEGATIVE (NEGATIVE); URINE BLOOD DIPSTICK NEGATIVE (NEGATIVE); URINE COLOR YELLOW; URINE GLUCOSE - DIPSTICK >=1000 mg/dL (NEGATIVE); URINE KETONE NEGATIVE (NEGATIVE); URINE LEUK ESTERASE NEGATIVE (Negative); URINE NITRITE - DIPSTICK NEGATIVE (Negative); URINE PH 5.5 (4.5-8.0); URINE PROTEIN - DIPSTICK NEGATIVE (NEG-TRACE); URINE UROBILINOGEN - DIPSTICK 0.2 E.U./dL (0.2)
[2019-08-16 17:12] LABS: URINE CLARITY CLEAR
[2019-08-16 17:31] LABS: BARBITURATES NEGATIVE (NEGATIVE); COCAINE NEGATIVE (NEGATIVE); METHADONE NEGATIVE (NEGATIVE); OXCYCODONE NEGATIVE (NEGATIVE); TETRAHYDROCANNABIONOL NEGATIVE (NEGATIVE); TRICYLIC ANTIDEPRESSANTS POSITIVE (NEGATIVE)
[2019-08-16 18:06] VITALS: BP 133/78
[2019-08-16] MEDS ORDERED: TAM75CAP PO (18:09)
== END 2019-08-16 18:17 | disposition home or self-care (01) | DRG 195 ==
LOC: ED 16:34
DX: J10.1 Influenza due to other identified influenza virus with other respiratory manifestations (principal); M54.6 Pain in thoracic spine; I10 Essential (primary) hypertension; E11.40 Type 2 diabetes mellitus with diabetic neuropathy, unspecified; J44.9 Chronic obstructive pulmonary disease, unspecified; F17.210 Nicotine dependence, cigarettes, uncomplicated; F17.290 Nicotine dependence, other tobacco product, uncomplicated; Z79.4 Long term (current) use of insulin

== ENCOUNTER 2019-09-03 16:31 | Emergency (ER) | payer SELFPAY ==
[~2019-09-03] VITALS: Ht 172.7 cm; Wt 97.0 kg
[~2019-09-03 16:31] MED LIST changes: -CYMBALTA30 MG PO; +CYMBALTA60 MG PO; -NOVOLOG MIX SC; +TAM75CAP PO
[2019-09-03] MEDS ORDERED: KEFLEX500 M1 PO (18:05)
[2019-09-03 18:10] VITALS: BP 141/86
== END 2019-09-03 18:10 | disposition home or self-care (01) | DRG 563 ==
LOC: ED 16:31
DX: S92.532A Displaced fracture of distal phalanx of left lesser toe(s), initial encounter for closed fracture (principal); S92.512A Displaced fracture of proximal phalanx of left lesser toe(s), initial encounter for closed fracture; S90.415A Abrasion, left lesser toe(s), initial encounter; I10 Essential (primary) hypertension; E11.40 Type 2 diabetes mellitus with diabetic neuropathy, unspecified; J44.9 Chronic obstructive pulmonary disease, unspecified; F17.210 Nicotine dependence, cigarettes, uncomplicated; W20.8XXA Other cause of strike by thrown, projected or falling object, initial encounter; Z91.19 Patient's noncompliance with other medical treatment and regimen; Z89.421 Acquired absence of other right toe(s); Z79.4 Long term (current) use of insulin; Z89.411 Acquired absence of right great toe

== ENCOUNTER 2019-10-29 07:51 | Emergency (ER) | payer SELFPAY ==
[~2019-10-29] VITALS: Ht 172.7 cm; Wt 96.0 kg
[2019-10-29] MEDS ORDERED: TRAMADOL HCL50 MG PO (08:07)
[2019-10-29] MEDS ORDERED: CLINDAMYCIN HC150 MG PO (08:08)
[2019-10-29 08:47] LABS: HEMATOCRIT 38.4 % (37.0-47.0); IMMATURE GRANULOCYTES 0.4 % (0.0-5.0); MEAN CELL VOLUME 78.9 fL CALC (80.0-100.0); MEAN CORPUSCULAR HGB 24.6 pG CALC (26.0-32.0); MEAN CORPUSCULAR HGB CONC 31.3 g/L CALC (32.0-36.0); NEUT# 6.15 thou/uL (2.00-7.15); RED BLOOD COUNT 4.87 mill/uL (4.20-5.60); RED CELL DISTRI WIDTH 14.9 % (11.5-15.5)
[2019-10-29 09:03] LABS: ALBUMIN 4.1 g/dL (3.2-5.0); ALKALINE PHOSPHATASE 170 u/l (38-126); ANION GAP 17 (6-22 (CALC)); BILIRUBIN, TOTAL 0.4 mg/dL (0.0-1.4); BUN 11 mg/dL (7-17); BUN/CREATININE RATIO 28 (12-20 (CALC)); CARBON DIOXIDE 23 mmol/l (22-30); CHLORIDE 99 mmol/l (95-108); CREATININE 0.4 mg/dL (0.5-1.0); GFR > 60 ML/MIN (>=60 (CALC)); GFR FOR AFR.AMER. > 60 ML/MIN (>=60 (CALC)); POTASSIUM 4.6 mmol/l (3.5-5.1); SGOT/AST 31 u/l (14-36); SODIUM 135 mmol/l (137-146); TOTAL PROTEIN 7.8 g/dL (6.3-8.2)
[2019-10-29 11:30] VITALS: BP 103/64
== END 2019-10-29 11:30 | disposition home or self-care (01) | DRG 603 ==
LOC: ED 07:51
DX: L03.115 Cellulitis of right lower limb (principal); E11.65 Type 2 diabetes mellitus with hyperglycemia; E11.42 Type 2 diabetes mellitus with diabetic polyneuropathy; I10 Essential (primary) hypertension; Z89.421 Acquired absence of other right toe(s); Z79.4 Long term (current) use of insulin

== ENCOUNTER 2019-12-27 | Emergency (ER) | payer OTHER ==
[~2019-12-27] MED LIST changes: +CLINDAMYCIN HC150 MG PO; -LEVEMIR100 UNIT/M
[2019-12-27 18:50] LABS: HEMATOCRIT 39.7 % (37.0-47.0); HEMOGLOBIN 12.1 g/dl (12.0-16.0); IMMATURE GRANULOCYTES 0.7 % (0.0-5.0); MEAN CELL VOLUME 80.4 fL CALC (80.0-100.0); MEAN CORPUSCULAR HGB 24.5 pG CALC (26.0-32.0); MEAN CORPUSCULAR HGB CONC 30.5 g/L CALC (32.0-36.0); NEUT# 6.08 thou/uL (2.00-7.15); RED BLOOD COUNT 4.94 mill/uL (4.20-5.60); RED CELL DISTRI WIDTH 15.6 % (11.5-15.5)
[2019-12-27 18:58] LABS: ALBUMIN 4.1 g/dL (3.2-5.0); ALKALINE PHOSPHATASE 156 u/l (38-126); ANION GAP 15 (6-22 (CALC)); BILIRUBIN, TOTAL 0.5 mg/dL (0.0-1.4); BUN 14 mg/dL (7-17); BUN/CREATININE RATIO 33 (12-20 (CALC)); CARBON DIOXIDE 22 mmol/l (22-30); CHLORIDE 106 mmol/l (95-108); CREATININE 0.4 mg/dL (0.5-1.0); GFR > 60 ML/MIN (>=60 (CALC)); GFR FOR AFR.AMER. > 60 ML/MIN (>=60 (CALC)); POTASSIUM 4.8 mmol/l (3.5-5.1); SGOT/AST 40 u/l (14-36); SODIUM 139 mmol/l (137-146); TOTAL PROTEIN 8.1 g/dL (6.3-8.2)
[2019-12-27 19:26] LABS: ACT PARTIAL THROMBO TIME 27.5 SECONDS (20.0-32.5); D-DIMER 1.56 mg/L (0.19-0.60); PROTHROMBIN TIME 9.4 SECONDS (9.0-12.5)
[2019-12-27 19:33] LABS: INTERNATIONAL NORMALIZED RATIO 0.9 RATIO (0.7-1.3)
[2020-01-21] MEDS ORDERED: HYDROCODONE/ACE1 TAB PO (15:03)
[2020-03-31] MEDS ORDERED: HYDROCODONE/ACE1 TAB PO (10:41)
[2020-03-31] MEDS ORDERED: NEURONTIN600 MG PO (10:44)
== END 2019-12-27 20:10 | disposition left against medical advice (07) ==
PROVIDERS: Emergency Medicine
DX: L03.115 Cellulitis of right lower limb (principal); E11.40 Type 2 diabetes mellitus with diabetic neuropathy, unspecified; I10 Essential (primary) hypertension; J44.9 Chronic obstructive pulmonary disease, unspecified; F17.210 Nicotine dependence, cigarettes, uncomplicated; Z79.4 Long term (current) use of insulin; Z89.421 Acquired absence of other right toe(s); Z91.19 Patient's noncompliance with other medical treatment and regimen

== ENCOUNTER 2019-12-28 | Emergency (ER) | payer OTHER ==
[2020-01-21] MEDS ORDERED: HYDROCODONE/ACE1 TAB PO (15:03)
[2020-03-31] MEDS ORDERED: HYDROCODONE/ACE1 TAB PO (10:41)
[2020-03-31] MEDS ORDERED: NEURONTIN600 MG PO (10:44)
== END 2019-12-28 17:10 | disposition home or self-care (01) ==
DX: E11.621 Type 2 diabetes mellitus with foot ulcer (principal); L97.519 Non-pressure chronic ulcer of other part of right foot with unspecified severity; E11.40 Type 2 diabetes mellitus with diabetic neuropathy, unspecified; I10 Essential (primary) hypertension; J44.9 Chronic obstructive pulmonary disease, unspecified; F17.210 Nicotine dependence, cigarettes, uncomplicated; Z79.4 Long term (current) use of insulin; Z89.421 Acquired absence of other right toe(s)

== ENCOUNTER 2020-01-27 08:21 | Emergency (ER) | payer OTHER ==
[~2020-01-27 08:21] MED LIST changes: +HYDROCODONE/ACE1 TAB PO
[2020-01-28] MEDS ORDERED: BACTRIM DS1 TAB PO (09:54)
[2020-01-28] MEDS ORDERED: CEPHALEXIN500 M1 PO (09:54)
[2020-03-31] MEDS ORDERED: HYDROCODONE/ACE1 TAB PO (10:41)
[2020-03-31] MEDS ORDERED: NEURONTIN600 MG PO (10:44)
== END 2020-01-27 08:59 | disposition left against medical advice (07) | DRG 951 ==
LOC: ED 08:21 → LWOBS 08:58
DX: Z53.21 Procedure and treatment not carried out due to patient leaving prior to being seen by health care provider (principal)

== ENCOUNTER 2020-01-28 | Emergency (ER) | payer OTHER ==
[2020-01-28 09:14] LABS: HEMATOCRIT 36.6 % (37.0-47.0); HEMOGLOBIN 11.7 g/dl (12.0-16.0); IMMATURE GRANULOCYTES 0.6 % (0.0-5.0); MEAN CORPUSCULAR HGB 24.9 pG CALC (26.0-32.0); NEUT# 4.74 thou/uL (2.00-7.15); RED BLOOD COUNT 4.69 mill/uL (4.20-5.60)
[2020-01-28 09:46] LABS: ANION GAP 11 (6-22 (CALC)); BUN 10 mg/dL (7-17); BUN/CREATININE RATIO 22 (12-20 (CALC)); CARBON DIOXIDE 27 mmol/l (22-30); CHLORIDE 103 mmol/l (95-108); CREATININE 0.5 mg/dL (0.5-1.0); GFR > 60 ML/MIN (>=60 (CALC)); GFR FOR AFR.AMER. > 60 ML/MIN (>=60 (CALC)); POTASSIUM 3.9 mmol/l (3.5-5.1); SODIUM 137 mmol/l (137-146)
[2020-01-28] MEDS ORDERED: CEPHALEXIN500 M1 PO (09:54)
[2020-01-28] MEDS ORDERED: BACTRIM DS1 TAB PO (09:54)
[2020-03-31] MEDS ORDERED: HYDROCODONE/ACE1 TAB PO (10:41)
[2020-03-31] MEDS ORDERED: NEURONTIN600 MG PO (10:44)
== END 2020-01-28 10:18 | disposition home or self-care (01) ==
PROVIDERS: Family Medicine
DX: L03.115 Cellulitis of right lower limb (principal); I10 Essential (primary) hypertension; E11.40 Type 2 diabetes mellitus with diabetic neuropathy, unspecified; J44.9 Chronic obstructive pulmonary disease, unspecified; F17.200 Nicotine dependence, unspecified, uncomplicated; B95.62 Methicillin resistant Staphylococcus aureus infection as the cause of diseases classified elsewhere; Z79.4 Long term (current) use of insulin; Z89.421 Acquired absence of other right toe(s)

== ENCOUNTER 2020-01-29 11:13 | Emergency (ER) | payer OTHER ==
[~2020-01-29 11:13] MED LIST changes: +CEPHALEXIN500 M1 PO
[2020-01-29 12:53] VITALS: BP 145/91
[2020-03-31] MEDS ORDERED: HYDROCODONE/ACE1 TAB PO (10:41)
[2020-03-31] MEDS ORDERED: NEURONTIN600 MG PO (10:44)
== END 2020-01-29 13:36 | disposition left against medical advice (07) | DRG 951 ==
LOC: ED 11:13 → LWOBS 13:36
DX: Z53.21 Procedure and treatment not carried out due to patient leaving prior to being seen by health care provider (principal)

== ENCOUNTER 2020-01-30 11:58 | Observation (INO) | payer OTHER ==
[~2020-01-30] VITALS: Ht 172.7 cm; Wt 102.0 kg
--- NOTE | 2020-01-30 12:20 | NUR ---
PT TO ROOM FOR EXAM
--- NOTE | 2020-01-30 13:17 | NUR ---
Pt. moved to rm #13 for higher level of care. Report given to Jeffery Vences.
[2020-01-30 13:21] LABS: HEMATOCRIT 34.9 % (37.0-47.0); IMMATURE GRANULOCYTES 0.7 % (0.0-5.0); MEAN CELL VOLUME 78.1 fL CALC (80.0-100.0); MEAN CORPUSCULAR HGB 24.6 pG CALC (26.0-32.0); MEAN CORPUSCULAR HGB CONC 31.5 g/L CALC (32.0-36.0); NEUT# 5.29 thou/uL (2.00-7.15); RED BLOOD COUNT 4.47 mill/uL (4.20-5.60); RED CELL DISTRI WIDTH 15.2 % (11.5-15.5)
[2020-01-30 13:49] LABS: ANION GAP 13 (6-22 (CALC)); BUN 13 mg/dL (7-17); BUN/CREATININE RATIO 24 (12-20 (CALC)); CARBON DIOXIDE 27 mmol/l (22-30); CHLORIDE 99 mmol/l (95-108); CREATININE 0.6 mg/dL (0.5-1.0); GFR > 60 ML/MIN (>=60 (CALC)); GFR FOR AFR.AMER. > 60 ML/MIN (>=60 (CALC)); POTASSIUM 4.4 mmol/l (3.5-5.1); SODIUM 135 mmol/l (137-146)
--- NOTE | 2020-01-30 14:10 | NUR ---
PT RESTING ON STRETCHER; NO S/S DISTRESS NOTED; VSS; WILL CONTINUE TO MONITOR
--- NOTE | 2020-01-30 15:10 | NUR ---
PT RESTING ON STRETCHER; NO S/S OF DISTRESS NOTED; VSS; WILL CONTINUE TO MONITOR
--- NOTE | 2020-01-30 16:10 | NUR ---
PT RESTING ON STRETCHER; IV SITE APPEARS HEALTHY AT THIS TIME; ADVISED OF CONTINUED WAIT TIME
--- NOTE | 2020-01-30 16:38 | NUR ---
DR MOORE AT BEDSIDE TO DISCUSS LEAVING AGAINST MEDICAL ADVICE
--- NOTE | 2020-01-30 16:50 | NUR ---
PTAGREEING TO STAY FOR ADMISSION; ADVISED OF CONTINUED WAIT TIME FOR ADMISSION
--- NOTE | 2020-01-30 17:50 | NUR ---
Admission Note Report Given to: VANGIE DAVEY Transported by: X Wheelchair Stretcher Transported with: X Nurse Transporter X Patent IV O2 Associate Professor Of Communication Location: ICU X MS2
--- NOTE | 2020-01-30 17:50 | NUR ---
PT ARRIVED TO MED/SURG ROOM 268 IN STABLE CONDITION VIA WHEELCHAIR ACCOMPANIED BY SURENDRA HERNANDEZ;PT AMBULATED TO STANDING SCALE AND BEDSIDE WITH A WEAK GAIT AND ASSISTED DEVICE;PT A&O X3,ORIENTED TO ROOM AND CALL LIGHT SYSTEM;PT REPORTS THAT RT FOOT PAIN HAS DECREASED SINCE PAIN MEDICATION ADMINISTRATION,PAIN SCALE AND REPORTING EDUCATED;RESPIRATIONS EVEN AND UNLABORED ON RA,CLEAR LUNG SOUNDS;ABDOMEN SOFT ON PALPATION AND ACTIVE IN ALL 4 QUADRANTS,LAST BM 01/29/20;STRONG PEDAL PULSES;MULTIPLE ULCERS NOTED TO RLE,PHOTOGRAPHS OBTAINED AND PLACED IN CHART;WOUNDS DRESSES WITH TELFA AND KERLEX;#18G TO LAC INFUSING NS PER ORDER,ABX STARTED AT THIS TIME;ACCUCHECK 269, PT COVERED WITH INSULIN PER ORDER;FALL AND ALLERGY BAND APPLIED; PT DENIES ANY ADDITIONAL NEEDS AT THIS TIME AND IS ENCOURAGED TO CALL FOR ASSISTANCE IF NEEDED;FALL PRECAUTIONS IN PLACE WITH CALL LIGHT IN REACH;WILL CONTINUE TO MONITOR
[2020-01-30 18:18] VITALS: BP 142/70
--- NOTE | 2020-01-30 19:06 | NUR ---
REPORT RECEIVED FROM VANGIE DAVEY. PT RESTING IN BED. NO S/S OF DISTRESS AT THIS TIME. SAFETY PRECAUTIONS IN PLACE. WILL CONTINUE TO MONITOR.
[2020-01-30 19:10] VITALS: BP 131/76
--- NOTE | 2020-01-30 21:55 | NUR ---
PT RESTING IN BED, ALERT AND ORIENTED. RESPIRATIONS EVEN AND UNLABORED. LUNGS SOUND CLEAR/DIMINISHED. PEDAL PULSES WEAK. SAFETY PRECAUTIONS IN PLACE. WILL CONTINUE TO MONITOR.
--- NOTE | 2020-01-31 00:02 | NUR ---
PT RESTING IN BED. RESPIRATIONS EVEN AND UNLABORED. NO S/S OF DISTRESS AT THIS TIME. WILL CONTINUE TO MONITOR.
--- NOTE | 2020-01-31 03:55 | NUR ---
PT RESTING IN BED ALERT AND ORIENTED. PT REPORTS HAVING PAIN IN RIGHT FOOT RATING PAIN 7/10. PT MEDICATED PER EMAR ORDERS.
[2020-01-31 04:05] VITALS: BP 119/67
--- NOTE | 2020-01-31 07:15 | NUR ---
REPORT RECEIVED FROM SURENDRA GROSSMAN. PT SITTING UPRIGHT IN BED. SLEEPING AT THIS TIME. CALL LIGHT WITHIN REACH.
--- NOTE | 2020-01-31 07:30 | NUR ---
DR. STACY IN TO SEE PT. AT THIS TIME. FINAL APPLICATION REVIEWER DIRECTED TO APPLY BETADINE WTD DRSG TO RIGHT FOOT WOUNDS.
[2020-01-31 08:27] VITALS: BP 133/63
--- NOTE | 2020-01-31 09:30 | NUR ---
DARCI GANDHI IN TO SEE PT. AT THIS TIME. PLAN OF CARE UPDATED.
--- NOTE | 2020-01-31 13:25 | NUR ---
DR. FRENCH IN TO SEE PT. DISCHARGE HOME DISCUSSED AND AGREED UPON BY BOTH.
[2020-03-31] MEDS ORDERED: HYDROCODONE/ACE1 TAB PO (10:41)
[2020-03-31] MEDS ORDERED: NEURONTIN600 MG PO (10:44)
== END 2020-01-31 14:00 | disposition home or self-care (01) ==
LOC: ED 11:58 → ED-I 13:55 → ED 14:08 → ED-I 14:09 → MS2 17:30
PROVIDERS: Family Medicine; ADMIT Internal Medicine; ATTEND Internal Medicine
DX: E10.621 Type 1 diabetes mellitus with foot ulcer (principal); L97.419 Non-pressure chronic ulcer of right heel and midfoot with unspecified severity; L03.115 Cellulitis of right lower limb; E10.42 Type 1 diabetes mellitus with diabetic polyneuropathy; E10.65 Type 1 diabetes mellitus with hyperglycemia; I10 Essential (primary) hypertension; G89.4 Chronic pain syndrome; B95.62 Methicillin resistant Staphylococcus aureus infection as the cause of diseases classified elsewhere; F31.9 Bipolar disorder, unspecified; F17.200 Nicotine dependence, unspecified, uncomplicated; Z89.421 Acquired absence of other right toe(s); Z89.411 Acquired absence of right great toe; Z79.4 Long term (current) use of insulin
CPT/HCPCS: G0378; J1650

== ENCOUNTER 2020-02-15 | Emergency (ER) | payer OTHER ==
[2020-03-31] MEDS ORDERED: HYDROCODONE/ACE1 TAB PO (10:41)
[2020-03-31] MEDS ORDERED: NEURONTIN600 MG PO (10:44)
== END 2020-02-15 10:28 | disposition home or self-care (01) ==
DX: Z48.00 Encounter for change or removal of nonsurgical wound dressing (principal); E11.621 Type 2 diabetes mellitus with foot ulcer; L97.519 Non-pressure chronic ulcer of other part of right foot with unspecified severity; E11.40 Type 2 diabetes mellitus with diabetic neuropathy, unspecified; I10 Essential (primary) hypertension; J44.9 Chronic obstructive pulmonary disease, unspecified; F17.210 Nicotine dependence, cigarettes, uncomplicated; Z89.411 Acquired absence of right great toe; Z89.421 Acquired absence of other right toe(s); Z79.4 Long term (current) use of insulin

== ENCOUNTER 2020-03-22 09:08 | Emergency (ER) | payer OTHER ==
[2020-03-22] MEDS ORDERED: TRAMADOL HYDROC50 M1 PO (09:34)
[2020-03-22 09:44] VITALS: BP 129/70
[2020-03-31] MEDS ORDERED: HYDROCODONE/ACE1 TAB PO (10:41)
[2020-03-31] MEDS ORDERED: NEURONTIN600 MG PO (10:44)
== END 2020-03-22 09:44 | disposition home or self-care (01) ==
LOC: ED 09:08
DX: T87.89 Other complications of amputation stump (principal); I10 Essential (primary) hypertension; E11.40 Type 2 diabetes mellitus with diabetic neuropathy, unspecified; J44.9 Chronic obstructive pulmonary disease, unspecified; F17.210 Nicotine dependence, cigarettes, uncomplicated; Y83.6 Removal of other organ (partial) (total) as the cause of abnormal reaction of the patient, or of later complication, without mention of misadventure at the time of the procedure; Z89.511 Acquired absence of right leg below knee; Z79.4 Long term (current) use of insulin

== ENCOUNTER 2020-04-29 07:49 | Day surgery (SDC) | payer OTHER ==
[~2020-04-29 07:49] MED LIST changes: +NEURONTIN600 MG PO; +TRAMADOL HYDROC50 M1 PO
== END 2020-04-29 09:40 | disposition home or self-care (01) ==
LOC: ORM 07:49
PROVIDERS: ATTEND Anesthesiology Pain Medicine
DX: Z53.8 Procedure and treatment not carried out for other reasons (principal)

== ENCOUNTER 2020-05-06 06:51 | Day surgery (SDC) | payer OTHER | END 2020-05-06 08:50 | disposition home or self-care (01) | LOC: ORM 06:51 | PROVIDERS: ATTEND Anesthesiology Pain Medicine | DX: Z01.818 Encounter for other preprocedural examination (principal); M65.812 Other synovitis and tenosynovitis, left shoulder; Z11.59 Encounter for screening for other viral diseases ==

== ENCOUNTER 2020-06-05 10:23 | Emergency (ER) | payer OTHER ==
[~2020-06-05] VITALS: Ht 172.7 cm; Wt 97.3 kg
[2020-06-05 12:07] LABS: HCG SERUM/URINE (NEG/POS) NEGATIVE (NEGATIVE)
[2020-06-05] MEDS ORDERED: CEPHALEXIN500 M1 PO (12:33)
[2020-06-05] MEDS ORDERED: BACTRIM DS1 TAB PO ×2 (12:33)
[2020-06-05 12:39] VITALS: BP 124/64
== END 2020-06-05 12:50 | disposition home or self-care (01) ==
LOC: ED 10:23
PROVIDERS: Family Medicine
DX: M25.562 Pain in left knee (principal); T87.43 Infection of amputation stump, right lower extremity; L03.115 Cellulitis of right lower limb; R05 Cough; R06.02 Shortness of breath; R06.2 Wheezing; E11.40 Type 2 diabetes mellitus with diabetic neuropathy, unspecified; I10 Essential (primary) hypertension; J44.9 Chronic obstructive pulmonary disease, unspecified; F17.210 Nicotine dependence, cigarettes, uncomplicated; Y83.5 Amputation of limb(s) as the cause of abnormal reaction of the patient, or of later complication, without mention of misadventure at the time of the procedure; W19.XXXA Unspecified fall, initial encounter; Z89.511 Acquired absence of right leg below knee; Z79.4 Long term (current) use of insulin; Z20.828 Contact with and (suspected) exposure to other viral communicable diseases

== ENCOUNTER 2020-06-21 18:52 | Emergency (ER) | payer OTHER ==
[~2020-06-21] VITALS: Ht 172.7 cm; Wt 97.7 kg
[2020-06-21] MEDS ORDERED: GABAPENTIN600 MG PO (20:15)
[2020-06-21] MEDS ORDERED: LOSARTAN POTASS25 MG PO (20:15)
[2020-06-21] MEDS ORDERED: TRAMADOL HCL50 MG PO (20:17)
[2020-06-21 20:50] VITALS: BP 139/79
== END 2020-06-21 20:50 | disposition home or self-care (01) ==
LOC: ED 18:52
DX: M25.562 Pain in left knee (principal); E11.51 Type 2 diabetes mellitus with diabetic peripheral angiopathy without gangrene; E11.40 Type 2 diabetes mellitus with diabetic neuropathy, unspecified; I10 Essential (primary) hypertension; J44.9 Chronic obstructive pulmonary disease, unspecified; F17.210 Nicotine dependence, cigarettes, uncomplicated; Z89.511 Acquired absence of right leg below knee; Z79.4 Long term (current) use of insulin

== ENCOUNTER 2020-07-07 17:59 | Emergency (ER) | payer OTHER ==
[~2020-07-07] VITALS: Ht 172.7 cm; Wt 97.7 kg
[~2020-07-07 17:59] MED LIST changes: +GABAPENTIN600 MG PO; +LOSARTAN POTASS25 MG PO
[2020-07-07] MEDS ORDERED: ELIQUIS5 MG PO (18:24)
[2020-07-07 20:38] VITALS: BP 152/70
== END 2020-07-07 20:30 | disposition home or self-care (01) ==
LOC: ED 17:59
DX: B34.9 Viral infection, unspecified (principal); R19.7 Diarrhea, unspecified; E11.40 Type 2 diabetes mellitus with diabetic neuropathy, unspecified; I10 Essential (primary) hypertension; J44.9 Chronic obstructive pulmonary disease, unspecified; F17.210 Nicotine dependence, cigarettes, uncomplicated; Z86.718 Personal history of other venous thrombosis and embolism; Z79.4 Long term (current) use of insulin; Z20.828 Contact with and (suspected) exposure to other viral communicable diseases

== ENCOUNTER 2020-08-15 15:59 | Emergency (ER) | payer OTHER ==
[~2020-08-15] VITALS: Ht 172.7 cm; Wt 100.0 kg
[~2020-08-15 15:59] MED LIST changes: +ELIQUIS5 MG PO
[2020-08-15] MEDS ORDERED: TORADOL PO (16:18)
[2020-08-15 16:55] VITALS: BP 134/68
== END 2020-08-15 16:55 | disposition home or self-care (01) ==
LOC: ED 15:59
DX: T87.89 Other complications of amputation stump (principal); E11.40 Type 2 diabetes mellitus with diabetic neuropathy, unspecified; I10 Essential (primary) hypertension; J44.9 Chronic obstructive pulmonary disease, unspecified; F17.200 Nicotine dependence, unspecified, uncomplicated; Y83.5 Amputation of limb(s) as the cause of abnormal reaction of the patient, or of later complication, without mention of misadventure at the time of the procedure; Z89.511 Acquired absence of right leg below knee; Z86.718 Personal history of other venous thrombosis and embolism; Z79.4 Long term (current) use of insulin

== ENCOUNTER 2021-01-03 13:57 | Emergency (ER) | payer OTHER ==
[~2021-01-03] VITALS: Ht 172.7 cm; Wt 100.0 kg
[2021-01-03] MEDS ORDERED: KEFLEX500 M1 PO (14:52)
[2021-01-03 15:05] VITALS: BP 157/91
== END 2021-01-03 15:10 | disposition home or self-care (01) ==
LOC: ED 13:57
DX: T87.89 Other complications of amputation stump (principal); I10 Essential (primary) hypertension; E11.40 Type 2 diabetes mellitus with diabetic neuropathy, unspecified; J44.9 Chronic obstructive pulmonary disease, unspecified; F31.9 Bipolar disorder, unspecified; F17.210 Nicotine dependence, cigarettes, uncomplicated; Y83.5 Amputation of limb(s) as the cause of abnormal reaction of the patient, or of later complication, without mention of misadventure at the time of the procedure; Z86.718 Personal history of other venous thrombosis and embolism; Z79.4 Long term (current) use of insulin; Z89.511 Acquired absence of right leg below knee

== ENCOUNTER 2021-02-25 | Emergency (ER) | payer OTHER ==
[2021-02-25] MEDS ORDERED: METOPROL TAR25 MG PO (10:55)
[2021-02-25 11:07] LABS: HEMATOCRIT 39.3 % (37.0-47.0); HEMOGLOBIN 11.8 g/dl (12.0-16.0); IMMATURE GRANULOCYTES 0.4 % (0.0-5.0); MEAN CELL VOLUME 76.3 fL CALC (80.0-100.0); MEAN CORPUSCULAR HGB 22.9 pG CALC (26.0-32.0); NEUT# 7.27 thou/uL (2.00-7.15); RED BLOOD COUNT 5.15 mill/uL (4.20-5.60)
[2021-02-25 11:20] LABS: ALBUMIN 4.4 g/dL (3.2-5.0); BUN 11 mg/dL (7-17); BUN/CREATININE RATIO 20 (12-20 (CALC)); CHLORIDE 102 mmol/l (95-108); CREATININE 0.5 mg/dL (0.5-1.0); GFR > 60 ML/MIN (>=60 (CALC)); GFR FOR AFR.AMER. > 60 ML/MIN (>=60 (CALC)); SODIUM 136 mmol/l (137-146); TOTAL PROTEIN 8.6 g/dL (6.3-8.2)
[2021-02-25 11:21] LABS: ALKALINE PHOSPHATASE 275 u/l (38-126); ANION GAP 12 (6-22 (CALC)); BILIRUBIN, TOTAL 0.5 mg/dL (0.0-1.4); CARBON DIOXIDE 26 mmol/l (22-30); SGOT/AST 57 u/l (14-36)
[2021-02-25] MEDS ORDERED: LORTAB 1010 MG PO (15:49)
[2021-02-25] MEDS ORDERED: KEFLEX500 M1 PO (15:49)
[2021-02-25] MEDS ORDERED: BACTRIM DS1 TAB PO (15:49)
== END 2021-02-25 16:19 | disposition left against medical advice (07) ==
PROVIDERS: Emergency Medicine
DX: T87.43 Infection of amputation stump, right lower extremity (principal); L02.415 Cutaneous abscess of right lower limb; E11.69 Type 2 diabetes mellitus with other specified complication; M86.8X6 Other osteomyelitis, lower leg; E11.40 Type 2 diabetes mellitus with diabetic neuropathy, unspecified; I10 Essential (primary) hypertension; F31.9 Bipolar disorder, unspecified; J44.9 Chronic obstructive pulmonary disease, unspecified; F17.210 Nicotine dependence, cigarettes, uncomplicated; B95.1 Streptococcus, group B, as the cause of diseases classified elsewhere; Y83.5 Amputation of limb(s) as the cause of abnormal reaction of the patient, or of later complication, without mention of misadventure at the time of the procedure; Z86.718 Personal history of other venous thrombosis and embolism; Z79.4 Long term (current) use of insulin; Z91.19 Patient's noncompliance with other medical treatment and regimen; Z89.511 Acquired absence of right leg below knee

== ENCOUNTER 2021-02-27 11:33 | Emergency (ER) | payer OTHER ==
[~2021-02-27 11:33] MED LIST changes: +METOPROL TAR25 MG PO
[2021-02-27 12:16] LABS: HEMATOCRIT 37.6 % (37.0-47.0); HEMOGLOBIN 11.4 g/dl (12.0-16.0); IMMATURE GRANULOCYTES 0.4 % (0.0-5.0); MEAN CELL VOLUME 75.2 fL CALC (80.0-100.0); MEAN CORPUSCULAR HGB 22.8 pG CALC (26.0-32.0); MEAN CORPUSCULAR HGB CONC 30.3 g/dL CAL (32.0-36.0); NEUT# 4.38 thou/uL (2.00-7.15)
[2021-02-27 12:34] LABS: ALBUMIN 4.3 g/dL (3.2-5.0); ALKALINE PHOSPHATASE 196 u/l (38-126); ANION GAP 13 (6-22 (CALC)); BILIRUBIN, TOTAL 0.4 mg/dL (0.0-1.4); BUN 14 mg/dL (7-17); BUN/CREATININE RATIO 25 (12-20 (CALC)); CARBON DIOXIDE 25 mmol/l (22-30); CHLORIDE 97 mmol/l (95-108); CREATININE 0.6 mg/dL (0.5-1.0); GFR > 60 ML/MIN (>=60 (CALC)); GFR FOR AFR.AMER. > 60 ML/MIN (>=60 (CALC)); LIPASE 67 u/l (23-300); POTASSIUM 4.8 mmol/l (3.5-5.1); SGOT/AST 31 u/l (14-36); SODIUM 130 mmol/l (137-146); TOTAL PROTEIN 8.4 g/dL (6.3-8.2)
[2021-02-27 13:24] LABS: URINE BILIRUBIN - DIPSTICK NEGATIVE (NEGATIVE); URINE BLOOD DIPSTICK NEGATIVE (NEGATIVE); URINE COLOR YELLOW; URINE GLUCOSE - DIPSTICK >=1000 mg/dL (NEGATIVE); URINE KETONE NEGATIVE (NEGATIVE); URINE LEUK ESTERASE NEGATIVE (NEGATIVE); URINE PROTEIN - DIPSTICK NEGATIVE (NEG-TRACE); URINE UROBILINOGEN - DIPSTICK 0.2 E.U./dL (0.2)
[2021-02-27 13:25] LABS: URINE NITRITE - DIPSTICK NEGATIVE (Negative)
[2021-02-27 15:35] VITALS: BP 128/66
== END 2021-02-27 16:30 ==
LOC: ED 11:33
PROVIDERS: Family Medicine
DX: T87.43 Infection of amputation stump, right lower extremity (principal); E11.69 Type 2 diabetes mellitus with other specified complication; M86.8X6 Other osteomyelitis, lower leg; I10 Essential (primary) hypertension; E11.40 Type 2 diabetes mellitus with diabetic neuropathy, unspecified; J44.9 Chronic obstructive pulmonary disease, unspecified; F31.9 Bipolar disorder, unspecified; F17.210 Nicotine dependence, cigarettes, uncomplicated; Y83.5 Amputation of limb(s) as the cause of abnormal reaction of the patient, or of later complication, without mention of misadventure at the time of the procedure; Z79.4 Long term (current) use of insulin; Z89.511 Acquired absence of right leg below knee; Z86.718 Personal history of other venous thrombosis and embolism

== ENCOUNTER 2021-08-21 13:40 | Emergency (ER) | payer OTHER ==
[~2021-08-21] VITALS: Ht 172.7 cm; Wt 90.0 kg
[2021-08-21] MEDS ORDERED: ZPAK PO (16:03)
[2021-08-21 16:38] VITALS: BP 146/73
== END 2021-08-21 16:38 | disposition home or self-care (01) ==
LOC: ED 13:40
DX: J02.9 Acute pharyngitis, unspecified (principal); I10 Essential (primary) hypertension; E11.40 Type 2 diabetes mellitus with diabetic neuropathy, unspecified; F31.9 Bipolar disorder, unspecified; F17.210 Nicotine dependence, cigarettes, uncomplicated; Z86.718 Personal history of other venous thrombosis and embolism; Z86.16 Personal history of COVID-19; Z79.4 Long term (current) use of insulin; Z20.822 Contact with and (suspected) exposure to COVID-19

== ENCOUNTER 2022-04-12 11:31 | Emergency (ER) | payer OTHER ==
[~2022-04-12] VITALS: Ht 172.7 cm; Wt 90.0 kg
[2022-04-12] VITALS (14 sets, daily range): BP systolic 72–147; BP diastolic 36–84
[~2022-04-12 11:31] MED LIST changes: +ZPAK PO
[2022-04-12 12:10] LABS: IMMATURE GRANULOCYTES 0.3 % (0.0-5.0); MEAN CORPUSCULAR HGB 28.2 pG CALC (26.0-32.0); MEAN CORPUSCULAR HGB CONC 33.8 g/dL CAL (32.0-36.0); NEUT# 8.9 thou/uL (2.00-7.15); RED BLOOD COUNT 5.29 mill/uL (4.20-5.60); RED CELL DISTRI WIDTH 12.9 % (11.5-15.5)
[2022-04-12 12:12] LABS: HEMATOCRIT 44.1 % (37.0-47.0); HEMOGLOBIN 14.9 g/dl (12.0-16.0); MEAN CELL VOLUME 83.4 fL CALC (80.0-100.0)
[2022-04-12 12:29] LABS: ALBUMIN 4.2 g/dL (3.2-5.0); ALKALINE PHOSPHATASE 140 u/l (38-126); ANION GAP 17 (6-22 (CALC)); BILIRUBIN, TOTAL 0.4 mg/dL (0.0-1.4); BUN 15 mg/dL (7-17); BUN/CREATININE RATIO 31 (12-20 (CALC)); CARBON DIOXIDE 21 mmol/l (22-30); CHLORIDE 105 mmol/l (95-108); CREATININE 0.5 mg/dL (0.5-1.0); ETHYL ALCOHOL 0 mg/dl (0-30); GFR > 60 ML/MIN (>=60 (CALC)); GFR FOR AFR.AMER. > 60 ML/MIN (>=60 (CALC)); POTASSIUM 4.5 mmol/l (3.5-5.1); SGOT/AST 23 u/l (14-36); TOTAL PROTEIN 7.8 g/dL (6.3-8.2)
[2022-04-12 12:31] LABS: SODIUM 138 mmol/l (137-146)
[2022-04-12 13:19] LABS: URINE BILIRUBIN - DIPSTICK NEGATIVE (NEGATIVE); URINE BLOOD DIPSTICK NEGATIVE (NEGATIVE); URINE COLOR YELLOW; URINE GLUCOSE - DIPSTICK >=1000 mg/dL (NEGATIVE); URINE KETONE TRACE mg/dL (NEGATIVE); URINE LEUK ESTERASE NEGATIVE (NEGATIVE); URINE NITRITE - DIPSTICK NEGATIVE (Negative); URINE PH 5.5 (4.5-8.0); URINE PROTEIN - DIPSTICK NEGATIVE (NEG-TRACE); URINE UROBILINOGEN - DIPSTICK 0.2 E.U./dL (0.2)
[2022-04-13 04:47] VITALS: BP 122/72
== END 2022-04-13 07:05 ==
LOC: ED 11:31
PROVIDERS: Family Medicine
DX: R45.851 Suicidal ideations (principal); I10 Essential (primary) hypertension; E11.40 Type 2 diabetes mellitus with diabetic neuropathy, unspecified; J44.9 Chronic obstructive pulmonary disease, unspecified; F31.9 Bipolar disorder, unspecified; F17.200 Nicotine dependence, unspecified, uncomplicated; S91.102A Unspecified open wound of left great toe without damage to nail, initial encounter; X58.XXXA Exposure to other specified factors, initial encounter; Z79.4 Long term (current) use of insulin; Z86.718 Personal history of other venous thrombosis and embolism
CPT/HCPCS: J2060

== ENCOUNTER 2024-06-09 10:30 | Emergency (ER) | payer OTHER ==
[~2024-06-09] VITALS: Ht 172.7 cm; Wt 72.5 kg
[2024-06-09 10:43] VITALS: BP 141/84
[2024-06-09] MEDS ORDERED: SODIUM CHLORIDE 0.9% 1,000 ML IV ONE (10:55)
[2024-06-09 11:00] VITALS: BP 134/85
[2024-06-09] MEDS ORDERED: ONDANSETRON HCl 4 MG/2 ML SDV IV ONE (11:35)
[2024-06-09] MEDS ORDERED: MORPHINE SULFATE 4 MG/ML VIAL IV ONE (11:35)
[2024-06-09 11:40] LABS: BASO% 0.6 % (0-3); EOS% 0.7 % (0-8); HEMATOCRIT 38.2 % (37.0-47.0); IMMATURE GRANULOCYTES 0.2 % (0.0-5.0); LYMPH% 26.2 % (15-41); MEAN CORPUSCULAR HGB 25.2 pG CALC (26.0-32.0); MEAN CORPUSCULAR HGB CONC 32.2 g/dL CAL (32.0-36.0); NEUT# 5.98 thou/uL (2.00-7.15); NEUT% 67.3 % (42-76); RED BLOOD COUNT 4.88 mill/uL (4.20-5.60); RED CELL DISTRI WIDTH 17.3 % (11.5-15.5)
[2024-06-09 11:48] LABS: ALBUMIN 4.7 g/dL (3.2-5.0); BILIRUBIN, TOTAL 0.4 mg/dL (0.02-1.3); CREATININE 0.6 mg/dL (0.5-1.0); TOTAL PROTEIN 8.9 g/dL (6.3-8.2)
[2024-06-09 11:51] LABS: HEMOGLOBIN 12.3 g/dl (12.0-16.0); MEAN CELL VOLUME 78.3 fL CALC (80.0-100.0); POTASSIUM 5.4 mmol/l (3.5-5.1)
[2024-06-09] MEDS ORDERED: CIPROFLOXACN500 MG PO (12:56)
[2024-06-09 13:18] VITALS: BP 134/85
== END 2024-06-09 13:31 | disposition home or self-care (01) ==
LOC: ED 10:30
PROVIDERS: Family Medicine
DX: L03.116 Cellulitis of left lower limb (principal); I10 Essential (primary) hypertension; E11.40 Type 2 diabetes mellitus with diabetic neuropathy, unspecified; J44.9 Chronic obstructive pulmonary disease, unspecified; F31.9 Bipolar disorder, unspecified; F17.200 Nicotine dependence, unspecified, uncomplicated; Z89.421 Acquired absence of other right toe(s); Z86.718 Personal history of other venous thrombosis and embolism; Z79.4 Long term (current) use of insulin; Z91.199 Patient's noncompliance with other medical treatment and regimen due to unspecified reason

== ENCOUNTER 2024-10-09 22:01 | Emergency (ER) | payer OTHER ==
[~2024-10-09] VITALS: Ht 172.7 cm; Wt 79.0 kg
[~2024-10-09 22:01] MED LIST changes: +NOVOLOG100 UNIT
[2024-10-09] MEDS ORDERED: Barium Sulfate (Readi-Cat 2 Berry) 450 ML/BTL PO ONE (22:25)
[2024-10-09] MEDS ORDERED: Barium Sulfate (Readi-Cat 2 Banana) 450 ML/BTL PO ONE (22:25)
[2024-10-09] MEDS ORDERED: DIATRIZOATE MEGLUMINE & SODIUM 30 ML/BTL PO ONE (22:25)
[2024-10-09] MEDS ORDERED: SODIUM CHLORIDE 0.9% 1,000 ML IV ONE ×2 (22:25)
[2024-10-09] MEDS ORDERED: ISOVUE-300 (Iopamidol) 100 ML SDV IV ONE (22:25)
[2024-10-09] MEDS ORDERED: DICYCLOMINE HCL 10 MG/CAP PO ONE (22:25)
[2024-10-09 22:59] VITALS: BP 121/75
[2024-10-09 23:05] LABS: BASO% 0.3 % (0-3); EOS% 0.7 % (0-8); HEMATOCRIT 38.1 % (37.0-47.0); HEMOGLOBIN 12.6 g/dl (12.0-16.0); IMMATURE GRANULOCYTES 0.2 % (0.0-5.0); LYMPH% 32.3 % (15-41); MEAN CELL VOLUME 76.8 fL CALC (80.0-100.0); MEAN CORPUSCULAR HGB 25.4 pG CALC (26.0-32.0); MEAN CORPUSCULAR HGB CONC 33.1 g/dL CAL (32.0-36.0); MONO% 5.9 % (2-13); NEUT# 7.39 thou/uL (2.00-7.15); NEUT% 60.6 % (42-76); RED BLOOD COUNT 4.96 mill/uL (4.20-5.60); RED CELL DISTRI WIDTH 15.8 % (11.5-15.5)
[2024-10-09 23:12] LABS: URINE BILIRUBIN - DIPSTICK Negative (NEGATIVE); URINE BLOOD DIPSTICK Negative (NEGATIVE); URINE GLUCOSE - DIPSTICK >=1000 mg/dL (NEGATIVE); URINE KETONE Negative (NEGATIVE); URINE LEUK ESTERASE Negative (NEGATIVE); URINE NITRITE - DIPSTICK Negative (Negative); URINE PH 5.5 (4.5-8.0); URINE PROTEIN - DIPSTICK Negative (NEG-TRACE); URINE SPECIFIC GRAVITY 1.025; URINE UROBILINOGEN - DIPSTICK 0.2 E.U./dL (0.2)
[2024-10-09 23:13] LABS: ALBUMIN 4.5 g/dL (3.2-5.0); ALKALINE PHOSPHATASE 119 u/l (38-126); BILIRUBIN, TOTAL 0.4 mg/dL (0.02-1.3); BUN 25 mg/dL (7-17); BUN/CREATININE RATIO 27 (12-20 (CALC)); CHLORIDE 103 mmol/l (95-108); CPK 133 u/l (30-135); CREATININE 0.9 mg/dL (0.5-1.0); ESTIMATED GFR 79 ML/MIN (>=90 (CALC)); ETHYL ALCOHOL 0 mg/dl (0-30); LIPASE 141 u/l (23-300); SGOT/AST 27 u/l (14-36); SODIUM 139 mmol/l (137-146); TOTAL PROTEIN 8.3 g/dL (6.3-8.2)
[2024-10-09 23:15] LABS: URINE COLOR Yellow
[2024-10-09 23:16] LABS: ANION GAP 18 (6-22 (CALC)); CARBON DIOXIDE 22 mmol/l (22-30); MAGNESIUM 2.2 mg/dL (1.6-2.3); POTASSIUM 3.8 mmol/l (3.5-5.1)
[2024-10-09] MEDS ORDERED: KETOROLAC TROMETHAMINE 15 MG/ML SDV IV ONE (23:20)
[2024-10-09 23:30] LABS: INTERNATIONAL NORMALIZED RATIO 0.9 RATIO (0.7-1.3)
[2024-10-09 23:31] VITALS: BP 142/61
[2024-10-09 23:31] LABS: PROTHROMBIN TIME 10.1 SECONDS (9.0-12.5)
[2024-10-09 23:46] LABS: TSH, 3RD GENERATION 0.48 uIU/mL (0.47 - 4.68)
[2024-10-10 00:01] VITALS: BP 125/88
[2024-10-10 02:19] VITALS: BP 127/69
[2024-10-10 02:35] VITALS: BP 123/51
[2024-10-10] MEDS ORDERED: LEVEMIR100 UNIT SC (02:38)
[2024-10-10] MEDS ORDERED: COZAAR25 MG PO (02:39)
[2024-10-10] MEDS ORDERED: TRAZODONE50 MG PO (02:39)
[2024-10-10] MEDS ORDERED: ROXICODONE15 M1 PO (02:40)
[2024-10-10] MEDS ORDERED: INSULIN REGULAR (HUMAN) 100 UNIT/ML INJ IV ONE (02:40)
[2024-10-10] MEDS ORDERED: TRAMADOL HYDROC50 M1 PO (02:41)
[2024-10-10] MEDS ORDERED: METHOCARBAMOL 500 MG/TAB PO ONE (06:45)
[2024-10-10] MEDS ORDERED: ACETAMINOPHEN 500 MG TAB PO ONE (06:45)
[2024-10-10] MEDS ORDERED: SODIUM CHLORIDE 0.9% 1,000 ML IV ONE (06:55)
[2024-10-10] MEDS ORDERED: oxyCODONE HCL 5 MG/TAB PO ONE (08:00)
[2024-10-10] MEDS ORDERED: traMADol HCL 50 MG/TAB PO ONE (08:00)
[2024-10-10] MEDS ORDERED: LOPERAMIDE HCL 2 MG CAP PO ONE (08:05)
[2024-10-10 11:35] VITALS: BP 142/75
== END 2024-10-10 11:30 ==
LOC: ED 22:01
PROVIDERS: Internal Medicine
DX: R45.851 Suicidal ideations (principal); R10.9 Unspecified abdominal pain; J10.1 Influenza due to other identified influenza virus with other respiratory manifestations; I10 Essential (primary) hypertension; E11.40 Type 2 diabetes mellitus with diabetic neuropathy, unspecified; F31.9 Bipolar disorder, unspecified; J44.9 Chronic obstructive pulmonary disease, unspecified; F17.200 Nicotine dependence, unspecified, uncomplicated; Z86.718 Personal history of other venous thrombosis and embolism; Z89.411 Acquired absence of right great toe; Z89.421 Acquired absence of other right toe(s); Z79.4 Long term (current) use of insulin; Z20.822 Contact with and (suspected) exposure to COVID-19; Z91.51 Personal history of suicidal behavior
CPT/HCPCS: Q9967

== ENCOUNTER 2024-11-03 12:51 | Emergency (ER) | payer OTHER ==
[~2024-11-03] VITALS: Ht 172.7 cm; Wt 88.0 kg
[~2024-11-03 12:51] MED LIST changes: +LEVEMIR100 UNIT SC; +ROXICODONE15 M1 PO; +TRAZODONE50 MG PO
[2024-11-03 13:17] VITALS: BP 185/98
[2024-11-03] MEDS ORDERED: traMADol HCL 50 MG/TAB PO ONE (13:20)
[2024-11-03] MEDS ORDERED: oxyCODONE 5MG/ ACETAMINOPHEN 325MG TAB PO ONE (13:20)
[2024-11-03 13:30] VITALS: BP 161/83
[2024-11-03] MEDS ORDERED: HYDROCO/APAP1 TA9 PO (13:36)
[2024-11-03 13:45] VITALS: BP 160/87
[2024-11-03 13:59] VITALS: BP 160/87
== END 2024-11-03 14:03 | disposition home or self-care (01) ==
LOC: ED 12:51
DX: Z76.0 Encounter for issue of repeat prescription (principal); E11.9 Type 2 diabetes mellitus without complications; I10 Essential (primary) hypertension; E11.40 Type 2 diabetes mellitus with diabetic neuropathy, unspecified; F31.9 Bipolar disorder, unspecified; J44.9 Chronic obstructive pulmonary disease, unspecified; F17.200 Nicotine dependence, unspecified, uncomplicated; Z86.718 Personal history of other venous thrombosis and embolism; Z79.891 Long term (current) use of opiate analgesic; Z89.411 Acquired absence of right great toe; Z89.421 Acquired absence of other right toe(s); Z79.4 Long term (current) use of insulin